=== PATIENT | female | born 1955 | race African-American/Black ===

== ENCOUNTER → 2016-07-09 17:32 | Outpatient (CLI) | payer MEDICARE | END | disposition home or self-care (01) | LOC: D.LABREF 17:32 | DX: I50.9 Heart failure, unspecified (principal) ==

== ENCOUNTER → 2016-07-11 09:59 | Outpatient (CLI) | payer MEDICARE | END | disposition home or self-care (01) | LOC: D.CT 09:59 | DX: R59.0 Localized enlarged lymph nodes (principal) ==

== ENCOUNTER → 2016-10-03 13:20 | Outpatient (CLI) | payer MEDICARE | END | disposition home or self-care (01) | LOC: D.MAMMO 09-18 16:15 | DX: Z12.31 Encounter for screening mammogram for malignant neoplasm of breast (principal) ==

== ENCOUNTER 2016-10-14 10:59 | Emergency (ER) | payer MEDICARE | END 2016-10-14 13:53 | disposition home or self-care (01) | LOC: D.ER 10:59 | DX: H66.92 Otitis media, unspecified, left ear (principal); G62.9 Polyneuropathy, unspecified; F32.9 Major depressive disorder, single episode, unspecified; E11.9 Type 2 diabetes mellitus without complications; Z79.4 Long term (current) use of insulin; I10 Essential (primary) hypertension; R51 Headache ==

== ENCOUNTER → 2017-01-15 13:33 | Outpatient (CLI) | payer MEDICARE | END | disposition home or self-care (01) | LOC: D.CT 01-10 09:30 | DX: R91.1 Solitary pulmonary nodule (principal) ==

== ENCOUNTER → 2017-01-31 09:20 | Outpatient (CLI) | payer MEDICARE | END | disposition home or self-care (01) | LOC: D.MRI 09:20 | DX: K76.9 Liver disease, unspecified (principal) ==

== ENCOUNTER 2017-03-29 06:53 | Emergency (ER) | payer MEDICARE | END 2017-03-29 07:33 | disposition home or self-care (01) | LOC: D.ER 06:53 | DX: M51.36 Other intervertebral disc degeneration, lumbar region (principal); E11.9 Type 2 diabetes mellitus without complications; Z79.4 Long term (current) use of insulin; I10 Essential (primary) hypertension ==

== ENCOUNTER 2017-07-01 22:29 | Emergency (ER) | payer MEDICARE ==
[2017-07-01 23:35] LABS: APPEARANCE CLEAR (CLEAR); BILIRUBIN NEGATIVE (NEGATIVE); COLOR YELLOW (YELLOW); GLUCOSE 100 mg/dL (NEGATIVE); KETONE NEGATIVE (NEGATIVE); NITRITE NEGATIVE (NEGATIVE); PROTEIN NEGATIVE (NEGATIVE); SPECIFIC GRAVITY 1.015 (1.005-1.020); UROBILINOGEN NORMAL (NORMAL)
[2017-07-01 23:36] LABS: BACTERIA MODERATE /hpf (NONE SEEN); EPITHELIAL CELLS 0-5 /hpf (0-5); RED CELLS - URINE 0-5 /hpf (0-5); WHITE CELLS - URINE 0-5 /hpf (0-5)
[2017-07-01 23:54] LABS: HEMATOCRIT 35.7 % (36.0-48.0); HEMOGLOBIN 11.7 g/dL (12-16); LYMPHOCYTES 16.8 % (15-50); MCH 27.1 pg (26.0-34.0); MCHC 32.8 g/dL (31.0-37.0); MCV 82.8 fL (80.0-100.0); NEUTROPHILS 70.8 % (40-80); RBC 4.31 10x6/uL (4.00-5.40); RDW 14.2 % (11.5-14.5); WBC 9.6 10x3/uL (4.8-10.8)
[2017-07-01 23:55] LABS: PLATELET COUNT 176 10x3/uL (130-400)
[2017-07-02 00:04] LABS: ALBUMIN 2.9 g/dL (3.4-5.0); ALKALINE PHOSPHATASE 106 U/L (46-116); ALT (SGPT) 25 U/L (10-68); BILIRUBIN - TOTAL 0.21 mg/dL (0.2-1.3); CALC OSMOLALITY 289 mosm/kg (275-300); CALCIUM 8.4 mg/dL (8.5-10.1); CARBON DIOXIDE 30.4 mmol/L (21.0-32.0); CHLORIDE - SERUM 101 mmol/L (98-107); CREATININE - SERUM 1.3 mg/dL (0.6-1.3); POTASSIUM - SERUM 3.8 mmol/L (3.5-5.1); PROTEIN - SERUM 7.2 g/dL (6.4-8.2); SODIUM 140 mmol/L (136-145); UREA NITROGEN 23 mg/dL (7-18); eGFR NON AFRICAN AMERICAN 44 mL/min (90-120)
[2017-07-02 00:05] LABS: GLUCOSE 216 mg/dL (74-106)
[2017-07-02 00:11] LABS: CKMB 1.1 U/L (0.0-3.6); CREATINE KINASE 107 UL (21-215); THYROID STIMULATING HORMONE 2.21 uIU/mL (0.36-3.74)
[2017-07-02 00:14] LABS: TROPONIN-I < 0.017 ng/mL (0.000-0.060)
== END 2017-07-02 01:26 | disposition home or self-care (01) ==
LOC: D.ER 22:29
PROVIDERS: Family Medicine
DX: E11.65 Type 2 diabetes mellitus with hyperglycemia (principal); R53.1 Weakness

== ENCOUNTER → 2017-07-24 13:00 | Outpatient (CLI) | payer MEDICARE | END | disposition home or self-care (01) | LOC: D.MRI 13:00 | DX: M54.5 Low back pain (principal) ==

== ENCOUNTER 2017-08-22 16:51 | Emergency (ER) | payer MEDICARE | END 2017-08-22 18:54 | disposition home or self-care (01) | LOC: D.ER 16:51 → D.M2 23:16 | DX: H60.91 Unspecified otitis externa, right ear (principal); E11.9 Type 2 diabetes mellitus without complications ==

== ENCOUNTER 2018-04-21 18:11 | Inpatient (IN) | payer MEDICARE ==
[~2018-04-21] VITALS: Ht 162.6 cm; Wt 105.5 kg
[2018-04-21] MEDS ORDERED: TOUJEO SOL300 UNIT/1 SC (18:17)
[2018-04-21] MEDS ORDERED: HUMALOG 30100 UNITS/ SC (18:18)
[2018-04-21] MEDS ORDERED: NEURONTIN600 MG PO (18:19)
[2018-04-21] MEDS ORDERED: ZANAFLEX4 MG PO (18:19)
[2018-04-21] MEDS ORDERED: COZAAR25 MG PO (18:20)
[2018-04-21] MEDS ORDERED: LEXAPRO10 MG PO (18:20)
[2018-04-21] MEDS ORDERED: ZYLOPRIM100 MG PO (18:20)
[2018-04-21] MEDS ORDERED: LOPRESSOR25 MG PO (18:20)
[2018-04-21] MEDS ORDERED: IBUPROFEN800 MG PO (18:21)
[2018-04-21] MEDS ORDERED: K-TAB10 MEQ PO (18:21)
[2018-04-21] MEDS ORDERED: NITROSTAT0.4 MG SL (18:21)
[2018-04-21] MEDS ORDERED: BUMEX2 MG PO (18:21)
[2018-04-21] MEDS ORDERED: RESTORIL15 MG PO (18:22)
[2018-04-21] MEDS ORDERED: PHENERGAN25 M1 PO (18:22)
[2018-04-21] MEDS ORDERED: HYDROCODON-ACET15 ML PO (18:23)
--- NOTE | 2018-04-21 18:59 | NUR ---
HAND-OFF REPORT GIVEN TO ZANDRA URIARTE RN AT THIS TIME.
[2018-04-21 19:12] LABS: BASOPHILS 0.3 % (0-2); EOSINOPHILS 0.9 % (0-7); HEMATOCRIT 40.4 % (36.0-48.0); HEMOGLOBIN 13.3 g/dL (12-16); IMMATURE GRANULOCYTES 0.3 % (0-5); LYMPHOCYTES 12.6 % (15-50); MCH 27.5 pg (26.0-34.0); MCHC 32.9 g/dL (31.0-37.0); MCV 83.5 fL (80.0-100.0); MONOCYTES 6.6 % (2-11); NEUTROPHILS 79.3 % (40-80); PLATELET COUNT 204 10x3/uL (130-400); RBC 4.84 10x6/uL (4.00-5.40); WBC 13.1 10x3/uL (4.8-10.8)
[2018-04-21 19:30] LABS: ALBUMIN 2.8 g/dL (3.4-5.0); ALKALINE PHOSPHATASE 113 U/L (46-116); ALT (SGPT) 54 U/L (10-68); BILIRUBIN - TOTAL 0.66 mg/dL (0.2-1.3); CALC OSMOLALITY 295 mosm/kg (275-300); CALCIUM 8.5 mg/dL (8.5-10.1); CARBON DIOXIDE 30.5 mmol/L (21.0-32.0); CHLORIDE - SERUM 99 mmol/L (98-107); POTASSIUM - SERUM 3.3 mmol/L (3.5-5.1); PROTEIN - SERUM 7.2 g/dL (6.4-8.2); SODIUM 139 mmol/L (136-145); UREA NITROGEN 20 mg/dL (7-18); eGFR NON AFRICAN AMERICAN 59 mL/min (90-120)
[2018-04-21 19:31] LABS: GLUCOSE 376 mg/dL (74-106); KETONE - SERUM NEGATIVE (NEGATIVE)
[2018-04-21 20:26] LABS: APTT 28.8 SECONDS (22.8-39.4); INR 1.08 (0.85-1.17); PROTIME 13.5 SECONDS (11.6-15.0)
--- NOTE | 2018-04-21 21:53 | NUR ---
EKG TIME ERROR, TIME WAS FOR A DIFFERENT PATIENT
[2018-04-21 22:09] LABS: APPEARANCE HAZY (CLEAR); COLOR YELLOW (YELLOW)
[2018-04-21 22:10] LABS: BILIRUBIN NEGATIVE (NEGATIVE); GLUCOSE 500 mg/dL (NEGATIVE); KETONE NEGATIVE (NEGATIVE); NITRITE NEGATIVE (NEGATIVE); PROTEIN TRACE mg/dL (NEGATIVE); SPECIFIC GRAVITY 1.015 (1.005-1.020); UROBILINOGEN NORMAL (NORMAL)
[2018-04-21 22:11] LABS: BACTERIA MANY /hpf (NONE SEEN); EPITHELIAL CELLS 0-5 /hpf (0-5); RED CELLS - URINE OCC /hpf (0-5)
--- NOTE | 2018-04-22 00:23 | NUR ---
REPORT GIVEN TO ISMA FUNEZ RN
--- NOTE | 2018-04-22 00:45 | NUR ---
ADMITTED TO ROOM ALERT AND ORIENTIATED MARIAA WRAP AND SPLINT TO LEFT LOWER LEG AND FOOT FOR FX ANKLE ELEVATED UP ON 2 PILLOWS REPORTS PAIN AT LEVEL 6 RECENTLY RECIEVED DILAUDID FOR PAIN, ORIENTIATED TO ROOM CALL LIGHT IN REACH
[2018-04-22 01:03] VITALS: BP 117/47
[2018-04-22 04:00] VITALS: BP 112/61
[2018-04-22 07:12] VITALS: Ht 162.6 cm; Wt 105.5 kg
[2018-04-22 07:42] LABS: BASOPHILS 0.3 % (0-2); EOSINOPHILS 0.7 % (0-7); HEMATOCRIT 42.5 % (36.0-48.0); HEMOGLOBIN 13.5 g/dL (12-16); IMMATURE GRANULOCYTES 0.3 % (0-5); LYMPHOCYTES 11.7 % (15-50); MCH 27.3 pg (26.0-34.0); MCHC 31.8 g/dL (31.0-37.0); RBC 4.94 10x6/uL (4.00-5.40); RDW 14.3 % (11.5-14.5); WBC 16.3 10x3/uL (4.8-10.8)
[2018-04-22 07:46] LABS: PLATELET COUNT 144 10x3/uL (130-400)
[2018-04-22 08:30] VITALS: BP 112/57
[2018-04-22 10:01] LABS: ALBUMIN 2.9 g/dL (3.4-5.0); ANION GAP 10.1 mmol/L (8-16); BILIRUBIN - TOTAL 0.67 mg/dL (0.2-1.3); CALCIUM 8.5 mg/dL (8.5-10.1); CARBON DIOXIDE 29.4 mmol/L (21.0-32.0); POTASSIUM - SERUM 3.5 mmol/L (3.5-5.1); PROTEIN - SERUM 7.1 g/dL (6.4-8.2)
[2018-04-22 10:02] LABS: CREATININE - SERUM 1.3 mg/dL (0.6-1.3)
--- NOTE | 2018-04-22 10:43 | NUR ---
Rehab Prescreening Consult recieved and the chart has been reviewed. She is [facility] managed Medicare and will require a preauth for the acute rehab. She is scheduled for surgery today. After surgery she will need a PT and an OT eval completed before [facility] will review her information for rehab criteria. Rehab will follow her progress. Roula Gibbons RN Clinical Liaison, Rehab
--- NOTE | 2018-04-22 11:35 | NUR ---
LATE ENTRY 0800. PT RESTING IN BED. FAMILY AT BEDSIDE. NPO. WAITING ON SX. DENIES ANY NEEDS. FAMILY AT BEDSIDE.NO S/S OF ACUTE DISTRESS. CL IN PLACE.
[2018-04-22 13:52] VITALS: BP 143/72
--- NOTE | 2018-04-22 17:00 | OP ---
PATIENT NAME: ISABELA ADAMS MEDICAL RECORD: [id number] :55 LOCATION:D.MS Nix.2211 ADMISSION DATE:04/21/18 SURGEON: BONG BAPTISTE DO DATE OF OPERATION: 04/22/2018 PROCEDURE PERFORMED: Left ankle open reduction and internal fixation. PREOPERATIVE DIAGNOSES: Closed left trimalleolar fracture with a syndesmotic injury and proximal fibula fracture. POSTOPERATIVE DIAGNOSES: Closed left trimalleolar fracture with a syndesmotic injury and proximal fibula fracture. INDICATIONS: Ms. Adams is a 62-year-old female who had a syncopal episode she thinks last night and she twisted her ankle, could not bear weight on her left ankle. She was brought to the ER. X-rays were taken. She was seen to have a trimalleolar fracture with a proximal fibula fracture. CT was done to get better imaging, it indeed showed the described above. A proximal fibula fracture was likely due to the twist indicating a syndesmotic injury. She did have a posterior mal fracture; however, was not greater than 25% of the joint. The patient was informed it was also dislocated on the x-ray and CT. This was reduced in the ER and splinted, and the patient was admitted to medicine and set up for surgery today. She was informed of the risks and benefits of the procedure including infection, bleeding, damage to nerve or vessels, potential blood clots and longer healing due to her diabetes and other medical problems. She was okay with that and signed the consent for the procedure. SURGEON: Bong Baptiste DO DESCRIPTION OF PROCEDURE: The patient received a block by anesthesia in the preoperative area and taken to the operative suite, given 2 grams Ancef. She was laid in supine position, intubated, LMA was placed and she was sedated as well. The left lower extremity was prepped and draped in sterile fashion with tourniquet above the knee under the drapes. The timeout was performed, everyone was agreeance with the correct side, site, patient and procedure. The left lower extremity was then exsanguinated with an Esmarch and the tourniquet was inflated to 350 mmHg, was up for 64 minutes. The incision then began over the fibula on the lateral side of the ankle. Careful dissection was made down to the fibula itself. Once the fibula was reduced adequately with the plate, distal locking screws were placed in the plate and then proximal screws in the shaft, getting a nice reduction of the fibula. More screws were put more proximally in the shaft of the fibula and once we had good fixation there, I went and addressed the medial side, two K-wires were used to reduce the medial malleolus percutaneously. Once I had good reduction and they were in good position, two cannulated screws were used over the pins. Nicks were made on the skin over the pins and a drill was used to go through the first cortex and then both screws were placed sequentially, 44 in length, and the medial malleolus, a nice reduction confirmed on x-ray. I then addressed the syndesmotic injury. A large clamp was used, placed on the fibular plate and a shreya was made over the medial malleolus and the large reduction clamp was used to reduce the ankle, the ankle dorsiflexed. The TightRopes were then used, one distally and one proximally, put through the plate and through the fibula and the tibia. The more proximal one had missed the tibia initially when the button was deployed. This was removed and the new one was put in, redirected the placement of the TightRope. These were tightened down. All the ankle was clamped and the clamp OPERATIVE REPORT [id number] ISABELA ADAMS was removed, confirmed to have good reduction of the ankle and the TightRope was cut. The cinching sutures were cut off the TightRope. Then, the wound was thoroughly irrigated and tourniquet was let down at 64 minutes. Wound was thoroughly irrigated. The medial side and 3 small shreya incisions were closed with 4-0 Monocryl in an inverted interrupted fashion. The lateral incision was closed with 2-0 Vicryl in an inverted interrupted fashion and then a ZipLine placed on it. Adaptic, 4 x 4's, ABD was then placed on the heel and over the wounds and then a Webril cast padding was used to wrap the ankle from the toes to just below the knee. Then, a 4 x 30 splint was placed and secured into place with 6-inch and 4-inch Zana wrap and formed, held in dorsiflexion until the splint hardened. The patient was then awakened and taken to recovery in stable condition. Blood loss was approximately 100 mL. COMPLICATIONS: None. I was assisted by Pito Diaz. TRANSINT:[id number] Voice Confirmation ID: [id number] DOCUMENT ID: [id number] BONG BAPTISTE DO at 1700 CC: [id number] DICTATION DATE: 04/22/18 1322 MANAGER GROUP: 04/22/18 1531 ADM IN [place] [id number] [place] [id number]
[2018-04-22 17:14] VITALS: BP 121/58
[2018-04-22 21:44] VITALS: BP 116/54
[2018-04-23 01:37] VITALS: BP 128/62
[2018-04-23 05:06] LABS: BASOPHILS 0.3 % (0-2); EOSINOPHILS 0.6 % (0-7); HEMATOCRIT 34.7 % (36.0-48.0); HEMOGLOBIN 11.2 g/dL (12-16); IMMATURE GRANULOCYTES 0.2 % (0-5); LYMPHOCYTES 11.6 % (15-50); MCH 27.1 pg (26.0-34.0); MCHC 32.3 g/dL (31.0-37.0); MEAN PLATELET VOLUME 12.6 fL (7.4-10.4); MONOCYTES 10.1 % (2-11); NEUTROPHILS 77.2 % (40-80); RBC 4.14 10x6/uL (4.00-5.40); RDW 14.1 % (11.5-14.5); WBC 15.1 10x3/uL (4.8-10.8)
[2018-04-23 05:22] LABS: MCV 83.8 fL (80.0-100.0); PLATELET COUNT 187 10x3/uL (130-400)
[2018-04-23 05:33] LABS: ALBUMIN 2.5 g/dL (3.4-5.0); ANION GAP 12.7 mmol/L (8-16); BILIRUBIN - TOTAL 0.36 mg/dL (0.2-1.3); CALCIUM 8.2 mg/dL (8.5-10.1); CARBON DIOXIDE 26.3 mmol/L (21.0-32.0); MAGNESIUM - SERUM 1.6 mg/dL (1.8-2.4); PHOSPHOROUS 2.6 mg/dL (2.5-4.9); PROTEIN - SERUM 6.6 g/dL (6.4-8.2)
--- NOTE | 2018-04-23 08:04 | NUR ---
PT RESTING IN BED. ASSISTED ONTO BEDPAN. DENIES PAIN. NO S/S OF ACUTE DISTRESS. SCD ON R LEG NOTED. CL IN PLACE.
[2018-04-23 08:30] VITALS: BP 110/66; BP 152/59
--- NOTE | 2018-04-23 09:39 | NUR ---
HELD BP DT 124/62.
[2018-04-23 12:30] VITALS: BP 163/89
--- NOTE | 2018-04-23 13:33 | NUR ---
LATE ENTRY FROM 1000. GAVE SUPPLIES TO NURSING STUDFENT FOR I O CATH. ATTEMPTED AND NO URINE PRESENT. WILL TRY AGAIN LATER.
[2018-04-23 16:30] VITALS: BP 124/61
--- NOTE | 2018-04-23 19:39 | NUR ---
PT RESTING IN BED. CO OF PAIN NOT BEING RELIEVED. SPOKE WITH DR BAPTISTE ABOUT THE PT PAIN. ROTATING TORDOL, OXYCODONE, VISTARIL, TORDOL THIS SHIFT. NO S/S OF ACUTE DISTRESS. CL IN PLACE.
--- NOTE | 2018-04-23 20:30 | NUR ---
AWAKE WATCHING TV QUIETLY. NO DISTRESS NOTED RESP UNLABORED. SL TO RFA INTACT WITHOUT REDNESS OR EDEMA NOTED. SPLINT WITH MARIAA WRAP DRESSING INTACT WITHOUT DRAINAGE NOTED.NO COMPLAITNS VOICED. CL IN REACH
--- NOTE | 2018-04-23 21:00 | NUR ---
OT NOTE: PT COMPLETED BED MOB WITH MIN A. PT COMPLETED SITTING EOB WITH CGA. PT COMPLETED GROOMING TASK WITH SET UP. THANK YOU, KEVIN ROSADO
[2018-04-23 21:48] VITALS: BP 138/65
--- NOTE | 2018-04-24 01:54 | NUR ---
ASSESSED, PT IS ASLEEP WITH EASY RESPIRATIONS AND NO DISTRESS NOTED.
[2018-04-24 04:34] LABS: BASOPHILS 0.3 % (0-2); EOSINOPHILS 0.9 % (0-7); HEMATOCRIT 34.2 % (36.0-48.0); HEMOGLOBIN 11.1 g/dL (12-16); IMMATURE GRANULOCYTES 0.3 % (0-5); MCH 27.4 pg (26.0-34.0); MCHC 32.5 g/dL (31.0-37.0); MCV 84.4 fL (80.0-100.0); MEAN PLATELET VOLUME 12.3 fL (7.4-10.4); MONOCYTES 10.1 % (2-11); NEUTROPHILS 73.4 % (40-80); PLATELET COUNT 200 10x3/uL (130-400); RBC 4.05 10x6/uL (4.00-5.40); RDW 14.4 % (11.5-14.5); WBC 13.6 10x3/uL (4.8-10.8)
[2018-04-24 04:52] LABS: ALBUMIN 2.6 g/dL (3.4-5.0); BILIRUBIN - TOTAL 0.37 mg/dL (0.2-1.3); CALCIUM 8.4 mg/dL (8.5-10.1); CARBON DIOXIDE 25.8 mmol/L (21.0-32.0); CREATININE - SERUM 0.9 mg/dL (0.6-1.3); MAGNESIUM - SERUM 1.5 mg/dL (1.8-2.4); PHOSPHOROUS 2.4 mg/dL (2.5-4.9); PROTEIN - SERUM 7.2 g/dL (6.4-8.2)
[2018-04-24 04:53] LABS: ANION GAP 14.3 mmol/L (8-16); POTASSIUM - SERUM 4.1 mmol/L (3.5-5.1)
[2018-04-24 05:35] VITALS: BP 147/60
[2018-04-24 09:04] VITALS: BP 126/77
--- NOTE | 2018-04-24 10:04 | MORECARE ---
CASE MANAGEMENT DISCHARGE SUMMARY PATIENT: ISABELA ADAMS UNIT: [id number] ADM DATE: 04/21/18 AGE: 62 : 55 SEX: F ROOM/BED: D.2211 AUTHOR: SUE CANALES PHYSICIAN: REFERRING PHYSICIAN: NICOLETTE ANDERSEN MD DATE OF SERVICE: 04/24/18 Discharge Plan Patient Name: ISABELA ADAMS [facility] : 1955 Planned Disposition: Inpatient Rehab Anticipated Discharge Date: Discharge Date: Expected LOS: Initial Reviewer: [email or web address] Initial Review Date: 04/21/2018 Generated: 04/24/18 11:04 am DCPIA - Discharge Planning Initial Assessment Updated by [id number]: Kera Church on 04/24/18 10:03 am * Is the patient Alert and Oriented? Yes * How many steps to enter\exit or inside your home? * PCP natali * Pharmacy [facility] * Preadmission Environment Home Alone * ADLs Independent * Equipment Rolling Walker * List name and contact numbers for known caregivers / representatives who currently or will assist patient after discharge: Rosario (daughter) [phone] * Verbal permission to speak to the caregivers and representatives has been obtained from the patient. N/A * Community resources currently utilized None * Additional services required to return to the preadmission environment? Yes * Can the patient safely return to the preadmission environment? No * Has this patient been hospitalized within the prior 30 days at any hospital? No Patient Name: ISABELA ADAMS Page [phone] at 1004 All edits/amendments must be made on the electronic document DICTATION DATE: 04/24/18 1004 PACU NURSE: VIKAS 04/24/18 1004 RPT#: [id number] DC DATE: STATUS: ADM IN [facility] [address] [place] [address] END OF REPORT
--- NOTE | 2018-04-24 10:11 | MORECARE ---
CASE MANAGEMENT DISCHARGE SUMMARY PATIENT: ISABELA ADAMS UNIT: [id number] ADM DATE: 04/21/18 AGE: 62 : 55 SEX: F ROOM/BED: D.2211 AUTHOR: PARKERDOC PHYSICIAN: REFERRING PHYSICIAN: NICOLETTE ANDERSEN MD DATE OF SERVICE: 04/24/18 Discharge Plan Patient Name: ISABELA ADAMS Facility: [facility]:[place] : 1955 Planned Disposition: Inpatient Rehab Anticipated Discharge Date: Discharge Date: Expected LOS: Initial Reviewer: [email or web address] Initial Review Date: 04/21/2018 Generated: 04/24/18 11:11 am Comments DCP- Discharge Planning Updated by [id number]: Kera Church on 04/24/18 9:[address] Patient Name: ISABELA ADAMS Admission Status: ER Accout number: [id number] Admission Date: 04-21-2018 : 1955 Admission Diagnosis: Attending: NICOLETTE ANDERSEN Current LOS: 3 Anticipated DC Date: Planned Disposition: Inpatient Rehab Primary Insurance: [facility] MEDICARE SOLUTIONS Discharge Planning Comments: CM met with patient to assess discharge planning needs. Patient lives independently at home but when she is discharged she would like to go to inpatient rehab at [facility]. ANDRAE signed. She stated that she has called and spoke with her insurance and they have approved her. I called IPT rehab and they are just now sending out clinicals so we are waiting on auth. She has a walker at home There are no stairs in her home. Her daughter will be the one to drive her home when she is ready. CM will continue to follow and assist with DC planning as needed. IMM was signed and explained. I also gave her a list of Skilled Facilities for her to look at if she is unable to go to inpatient rehab. CM will continue to follow as neeeded Burlap Bag Sewer: Kera Church DCPIA - Discharge Planning Initial Assessment Updated by [email or web address]: Kera Church on 04/24/18 10:03 am * Is the patient Alert and Oriented? Yes * How many steps to enter\exit or inside your home? * PCP natali * Pharmacy [facility] [address] * Preadmission Environment Home Alone * ADLs Independent * Equipment Rolling Walker * List name and contact numbers for known caregivers / representatives who currently or will assist patient after discharge: Rosario (daughter) [phone] * Verbal permission to speak to the caregivers and representatives has been obtained from the patient. N/A * Community resources currently utilized None * Additional services required to return to the preadmission environment? Yes * Can the patient safely return to the preadmission environment? No * Has this patient been hospitalized within the prior 30 days at any hospital? No Coverage Notice Reviewer: [id number] Cain Church Notice Issued Date-Time: 04/24/2018 10:00 Notice Type: IM Discharge Notice Notice Delivered To: Patient Relationship to Patient: Sports Statistician Name: Delivery Method: HAND - Hand Delivered Jada Days: Prior Verbal Notification: Recipient Understood Notice: Yes Recipient Signature: Yes Med Rec Note Co-signed by Attending: Coverage Notice Comment: Last DP export: 04/24/18 9:04 am Patient Name: ISABELA ADAMS Page [id number] at 1011 All edits/amendments must be made on the electronic document DICTATION DATE: 04/24/18 1011 SNOWBOARD INSTRUCTOR: VIKAS 04/24/18 1011 RPT#: [id number] DC DATE: STATUS: ADM IN [facility] [address] [place] [address] END OF REPORT
--- NOTE | 2018-04-24 10:20 | MORECARE ---
CASE MANAGEMENT DISCHARGE SUMMARY PATIENT: ISABELA ADAMS UNIT: [id number] ADM DATE: 04/21/18 AGE: 62 : 55 SEX: F ROOM/BED: D.2211 AUTHOR: PARKERDOC PHYSICIAN: REFERRING PHYSICIAN: NICOLETTE ANDERSEN MD DATE OF SERVICE: 04/24/18 Discharge Plan Patient Name: ISABELA ADAMS Facility: [facility]:[place] : 1955 Planned Disposition: Inpatient Rehab Anticipated Discharge Date: Discharge Date: Expected LOS: Initial Reviewer: [email or web address] Initial Review Date: 04/21/2018 Generated: 04/24/18 11:20 am Comments DCP- Discharge Planning Updated by [email or web address]: Kera Church on 04/24/18 9:[address] Patient Name: ISABELA ADAMS Admission Status: ER Accout number: [id number] Admission Date: 04-21-2018 : 1955 Admission Diagnosis: Attending: NICOLETTE ANDERSEN Current LOS: 3 Anticipated DC Date: Planned Disposition: Inpatient Rehab Primary Insurance: [facility] MEDICARE SOLUTIONS Discharge Planning Comments: CM met with patient to assess discharge planning needs. Patient lives independently at home but when she is discharged she would like to go to inpatient rehab at [facility]. ANDRAE signed. She stated that she has called and spoke with her insurance and they have approved her. I called IPT rehab and they are just now sending out clinicals so we are waiting on auth. She has a walker at home There are no stairs in her home. Her daughter will be the one to drive her home when she is ready. CM will continue to follow and assist with DC planning as needed. IMM was signed and explained. I also gave her a list of Skilled Facilities for her to look at if she is unable to go to inpatient rehab. CM will continue to follow as neeeded Hardware Developer: Kera Church DCPIA - Discharge Planning Initial Assessment Updated by [id number]: Kera Church on 04/24/18 10:03 am * Is the patient Alert and Oriented? Yes * How many steps to enter\exit or inside your home? * PCP natali * Pharmacy [facility] [address] * Preadmission Environment Home Alone * ADLs Independent * Equipment Rolling Walker * List name and contact numbers for known caregivers / representatives who currently or will assist patient after discharge: Rosario (daughter) [phone] * Verbal permission to speak to the caregivers and representatives has been obtained from the patient. N/A * Community resources currently utilized None * Additional services required to return to the preadmission environment? Yes * Can the patient safely return to the preadmission environment? No * Has this patient been hospitalized within the prior 30 days at any hospital? No Coverage Notice Reviewer: [id number] Cain Church Notice Issued Date-Time: 04/24/2018 10:00 Notice Type: IM Discharge Notice Notice Delivered To: Patient Relationship to Patient: Informatics Developer Name: Delivery Method: HAND - Hand Delivered Jada Days: Prior Verbal Notification: Recipient Understood Notice: Yes Recipient Signature: Yes Med Rec Note Co-signed by Attending: Coverage Notice Comment: Last DP export: 04/24/18 9:11 am Patient Name: ISABELA ADAMS Page [id number] at 1020 All edits/amendments must be made on the electronic document DICTATION DATE: 04/24/18 1019 ASSISTANT FOREMAN: VIKAS 04/24/18 1019 RPT#: [id number] DC DATE: STATUS: ADM IN [facility] [address] [place] [address] END OF REPORT
--- NOTE | 2018-04-24 12:00 | NUR ---
C/O DISCOMFORT IN LEFT ANKLE, APPLIED ICE, RELIEVED DISCOMFORT, DENIES ANY OTHER NEEDS, BED LOWERED AND LOCKED, CALL LIGHT WITHIN REACH. CPOC
[2018-04-24 12:33] VITALS: BP 120/72
[2018-04-24 16:37] VITALS: BP 125/55
--- NOTE | 2018-04-24 19:50 | NUR ---
RECEIVED REPORT, ASSUMED CARE, A&O, IV TO RFA REMOVED TIP INTACT, 22G ONE STICK TO LFA, ICE APPLIED TO LEFT ANKLE AND ELEVATED ON PILLOWS, BED LOWEST POSITION, CALL LIGHT IN REACH, WILL CONTINUE POC
[2018-04-24 20:00] VITALS: BP 111/62
[2018-04-25] VITALS: BP 105/53
--- NOTE | 2018-04-25 02:08 | NUR ---
ASSESSED, PT IS AWAKE AND HAS EASY RESPIRATIONS WITH NO DISTRESS NOTED. ASSISTED WITH ADJUSTING THE BED.
[2018-04-25 03:00] VITALS: BP 122/63
[2018-04-25 06:52] LABS: BASOPHILS 0.2 % (0-2); EOSINOPHILS 1.5 % (0-7); HEMATOCRIT 33.8 % (36.0-48.0); HEMOGLOBIN 10.9 g/dL (12-16); IMMATURE GRANULOCYTES 0.3 % (0-5); LYMPHOCYTES 12.3 % (15-50); MCH 27.6 pg (26.0-34.0); MCHC 32.2 g/dL (31.0-37.0); MCV 85.6 fL (80.0-100.0); MEAN PLATELET VOLUME 12.2 fL (7.4-10.4); MONOCYTES 8.7 % (2-11); PLATELET COUNT 188 10x3/uL (130-400); RBC 3.95 10x6/uL (4.00-5.40); RDW 14.5 % (11.5-14.5); WBC 14.9 10x3/uL (4.8-10.8)
[2018-04-25 07:07] LABS: ALBUMIN 2.5 g/dL (3.4-5.0); ANION GAP 14.7 mmol/L (8-16); BILIRUBIN - TOTAL 0.44 mg/dL (0.2-1.3); CALCIUM 8.1 mg/dL (8.5-10.1); CARBON DIOXIDE 26.7 mmol/L (21.0-32.0); MAGNESIUM - SERUM 1.4 mg/dL (1.8-2.4); PHOSPHOROUS 2.9 mg/dL (2.5-4.9); POTASSIUM - SERUM 4.4 mmol/L (3.5-5.1); PROTEIN - SERUM 7.1 g/dL (6.4-8.2)
[2018-04-25 07:12] LABS: CREATININE - SERUM 1.5 mg/dL (0.6-1.3)
--- NOTE | 2018-04-25 07:47 | NUR ---
AWAKE AND ALERT, EVEN UNLABORED BREATHING, LEFT LEG ELEVATED WITH MARIAA WRAP PRESENT, DENIES ANY CURRENT NEEDS OR DISCOMFORTS, BED LOWERED AND LOCKED, CALL LIGHT WITHIN REACH. CPOC
[2018-04-25 11:03] VITALS: BP 99/57
[2018-04-25 18:31] VITALS: BP 99/52
--- NOTE | 2018-04-25 19:30 | NUR ---
RECEIVED REPORT, ASSUMED CARE, A&O, DENIES NEEDS, BED LOWEST POSITION, CALL LIGHT IN REACH, NO S/S OF DISTRESS NOTED, WILL CONTINUE POC
[2018-04-25 20:00] VITALS: BP 124/66
[2018-04-26] VITALS: BP 120/58
[2018-04-26 03:00] VITALS: BP 105/50
--- NOTE | 2018-04-26 03:58 | NUR ---
PT PULLED IV TO LFA OUT, TIP INTACT, 22G TO RFA PLACED ONE STICK
--- NOTE | 2018-04-26 05:24 | NUR ---
PT RESTING QUIETLY, EYES CLOSED. RESP EVEN, UNLABORED. NO DISTRESS NOTED. AGREE WITH SENIOR FOREMAN ASSESSMENT. CONTINUE PLAN OF CARE.
[2018-04-26 06:41] LABS: BASOPHILS 0.2 % (0-2); EOSINOPHILS 1.8 % (0-7); HEMATOCRIT 33.5 % (36.0-48.0); HEMOGLOBIN 10.8 g/dL (12-16); IMMATURE GRANULOCYTES 0.3 % (0-5); MCH 27.5 pg (26.0-34.0); MCHC 32.2 g/dL (31.0-37.0); MCV 85.2 fL (80.0-100.0); MEAN PLATELET VOLUME 12.5 fL (7.4-10.4); MONOCYTES 9.6 % (2-11); NEUTROPHILS 75.1 % (40-80); RBC 3.93 10x6/uL (4.00-5.40); RDW 14.4 % (11.5-14.5); WBC 15.3 10x3/uL (4.8-10.8)
[2018-04-26 06:53] LABS: ANION GAP 11.2 mmol/L (8-16); CALCIUM 8.4 mg/dL (8.5-10.1); CARBON DIOXIDE 29.9 mmol/L (21.0-32.0); POTASSIUM - SERUM 4.1 mmol/L (3.5-5.1)
[2018-04-26 06:55] LABS: CREATININE - SERUM 1.1 mg/dL (0.6-1.3); MAGNESIUM - SERUM 1.8 mg/dL (1.8-2.4)
[2018-04-26 07:03] LABS: PLATELET COUNT 238 10x3/uL (130-400)
[2018-04-26 09:10] VITALS: BP 108/60
[2018-04-26 17:32] VITALS: BP 111/59
--- NOTE | 2018-04-26 19:45 | NUR ---
RECEIVED REPORT, ASSUMED CARE, A&O, COMPLAINS OF SEVERE PAIN OF HER LEFT LOWER FOOT FEELING LIKE IT DID WHEN SHE BROKE IT, RESTARTED IV DILAUDID AND CALLED DR BAPTISTE, FOOT ELEVATED ICE APPLIED, BED LOWEST POSITION, CALL LIGHT IN REACH, WILL CONITNUE POC
[2018-04-26 20:00] VITALS: BP 124/51
--- NOTE | 2018-04-26 23:00 | NUR ---
PT STILL UNABLE TO URINATE, STRAIGHT CATHED ONLY 300CC OUT, URINE SENT TO LAB
[2018-04-26 23:37] LABS: APPEARANCE CLEAR (CLEAR); BILIRUBIN NEGATIVE (NEGATIVE); COLOR YELLOW (YELLOW); GLUCOSE NEGATIVE (NEGATIVE); KETONE NEGATIVE (NEGATIVE); NITRITE NEGATIVE (NEGATIVE); PROTEIN NEGATIVE (NEGATIVE); SPECIFIC GRAVITY 1.015 (1.005-1.020); UROBILINOGEN NORMAL (NORMAL)
[2018-04-27] VITALS: BP 130/63
--- NOTE | 2018-04-27 02:36 | NUR ---
PT RESTING QUIETLY, EYES CLOSED. RESP EVEN, UNLABORED. NO DISTRESS NOTED. AGREEN WITH STREET DEPARTMENT DISPATCHER'S ASSESSMENT, CONTINUE PLAN OF CARE.
[2018-04-27 03:00] VITALS: BP 128/60
[2018-04-27 05:13] LABS: BASOPHILS 0.2 % (0-2); EOSINOPHILS 1.6 % (0-7); HEMATOCRIT 31.4 % (36.0-48.0); HEMOGLOBIN 10.2 g/dL (12-16); IMMATURE GRANULOCYTES 0.5 % (0-5); LYMPHOCYTES 13.1 % (15-50); MCH 27.5 pg (26.0-34.0); MCHC 32.5 g/dL (31.0-37.0); MCV 84.6 fL (80.0-100.0); MEAN PLATELET VOLUME 12.3 fL (7.4-10.4); MONOCYTES 12.5 % (2-11); NEUTROPHILS 72.1 % (40-80); PLATELET COUNT 231 10x3/uL (130-400); RBC 3.71 10x6/uL (4.00-5.40); RDW 14.2 % (11.5-14.5)
[2018-04-27 05:47] LABS: ANION GAP 13.6 mmol/L (8-16); CALCIUM 8.2 mg/dL (8.5-10.1); CARBON DIOXIDE 28.2 mmol/L (21.0-32.0); CREATININE - SERUM 1.1 mg/dL (0.6-1.3); POTASSIUM - SERUM 3.8 mmol/L (3.5-5.1)
[2018-04-27 08:52] VITALS: BP 102/72
--- NOTE | 2018-04-27 10:22 | MORECARE ---
CASE MANAGEMENT DISCHARGE SUMMARY PATIENT: ISABELA ADAMS UNIT: [id number] ADM DATE: 04/21/18 AGE: 62 : 55 SEX: F ROOM/BED: D.2211 AUTHOR: SUE CANALES PHYSICIAN: REFERRING PHYSICIAN: NICOLETTE ANDERSEN MD DATE OF SERVICE: 04/27/18 Discharge Plan Patient Name: ISABELA ADAMS Facility: [facility]:[place] : 1955 Planned Disposition: Inpatient Rehab Anticipated Discharge Date: Discharge Date: Expected LOS: Initial Reviewer: [email or web address] Initial Review Date: 04/21/2018 Generated: 04/27/18 11:22 am Comments DCP- Discharge Planning Updated by [id number]: Kera Church on 04/27/18 9:[address] SPOKE WITH CONRADO AT INPATIENT REHAB, AWAITING AUTH DCP- Discharge Planning Updated by [email or web address]: Kera Church on 04/24/18 9:[address] Patient Name: ISABELA ADAMS Admission Status: ER Accout number: [id number] Admission Date: 04-21-2018 : 1955 Admission Diagnosis: Attending: NICOLETTE ANDERSEN Current LOS: 3 Anticipated DC Date: Planned Disposition: Inpatient Rehab Primary Insurance: [facility] MEDICARE SOLUTIONS Discharge Planning Comments: CM met with patient to assess discharge planning needs. Patient lives independently at home but when she is discharged she would like to go to inpatient rehab at [facility]. ANDRAE signed. She stated that she has called and spoke with her insurance and they have approved her. I called IPT rehab and they are just now sending out clinicals so we are waiting on auth. She has a walker at home There are no stairs in her home. Her daughter will be the one to drive her home when she is ready. CM will continue to follow and assist with DC planning as needed. IMM was signed and explained. I also gave her a list of Skilled Facilities for her to look at if she is unable to go to inpatient rehab. CM will continue to follow as neeeded Ground Mixer: Kera Church DCPIA - Discharge Planning Initial Assessment Updated by [email or web address]: Kera Church on 04/24/18 10:03 am * Is the patient Alert and Oriented? Yes * How many steps to enter\exit or inside your home? * PCP natali * Pharmacy [facility] [address] * Preadmission Environment Home Alone * ADLs Independent * Equipment Rolling Walker * List name and contact numbers for known caregivers / representatives who currently or will assist patient after discharge: Rosario (daughter) [phone] * Verbal permission to speak to the caregivers and representatives has been obtained from the patient. N/A * Community resources currently utilized None * Additional services required to return to the preadmission environment? Yes * Can the patient safely return to the preadmission environment? No * Has this patient been hospitalized within the prior 30 days at any hospital? No Coverage Notice Reviewer: [email or web address] Cain Church Notice Issued Date-Time: 04/24/2018 10:00 Notice Type: IM Discharge Notice Notice Delivered To: Patient Relationship to Patient: Coal Mill Operator Name: Delivery Method: HAND - Hand Delivered Jada Days: Prior Verbal Notification: Recipient Understood Notice: Yes Recipient Signature: Yes Med Rec Note Co-signed by Attending: Coverage Notice Comment: Last DP export: 04/24/18 9:20 am Patient Name: ISABELA ADAMS Page [id number] at 1022 All edits/amendments must be made on the electronic document DICTATION DATE: 04/27/18 1022 DIRECTOR INDUSTRIAL MUSEUM: VIKAS 04/27/18 1022 RPT#: [id number] DC DATE: STATUS: ADM IN [facility] [address] [place] [address] END OF REPORT
[2018-04-27 13:40] VITALS: BP 130/69
[2018-04-27 16:00] VITALS: BP 114/62
[2018-04-27 21:08] VITALS: BP 113/65
[2018-04-28 04:54] VITALS: BP 111/57
[2018-04-28 05:15] LABS: BASOPHILS 0.2 % (0-2); EOSINOPHILS 1.5 % (0-7); HEMATOCRIT 30.7 % (36.0-48.0); HEMOGLOBIN 9.9 g/dL (12-16); IMMATURE GRANULOCYTES 0.2 % (0-5); LYMPHOCYTES 13.8 % (15-50); MCH 27.3 pg (26.0-34.0); MCHC 32.2 g/dL (31.0-37.0); MCV 84.6 fL (80.0-100.0); MEAN PLATELET VOLUME 12.4 fL (7.4-10.4); MONOCYTES 11.2 % (2-11); NEUTROPHILS 73.1 % (40-80); PLATELET COUNT 263 10x3/uL (130-400); RBC 3.63 10x6/uL (4.00-5.40); WBC 16.1 10x3/uL (4.8-10.8)
[2018-04-28 05:36] LABS: ANION GAP 12.9 mmol/L (8-16); CALCIUM 8.6 mg/dL (8.5-10.1); CARBON DIOXIDE 29.9 mmol/L (21.0-32.0); CREATININE - SERUM 1.1 mg/dL (0.6-1.3); POTASSIUM - SERUM 3.8 mmol/L (3.5-5.1)
[2018-04-28 08:00] VITALS: BP 102/44
--- NOTE | 2018-04-28 09:25 | NUR ---
Rehab Note- Received call from [facility] with a denial for an inpatient acute rehab stay. A peer to peer can be set up by calling [phone] Ext. [phone] by 04/29/18 @ 7320. Spoke with FERNANDEZ Hernandez. Thank you for this referral! Luisa Barnett RN Clinical Liaison, [facility] Rehab
--- NOTE | 2018-04-28 09:55 | NUR ---
PT SELF TRANSFED SELF FROM BED TO BSC. AND SLID TO FLOOR WHEN TRANSFER BACK TO BED WITHOUT ASSIST. STATED NO INJURY NO INJURY NOTED. AT SHIFT CHANGED
--- NOTE | 2018-04-28 10:30 | NUR ---
PATIENT CO OF SOME PAIN IN HER KNEE. REQUESTS SOME ICE PACKS AND BED BATH
--- NOTE | 2018-04-28 10:37 | MORECARE ---
CASE MANAGEMENT DISCHARGE SUMMARY PATIENT: ISABELA ADAMS UNIT: [id number] ADM DATE: 04/21/18 AGE: 62 : 55 SEX: F ROOM/BED: D.2211 AUTHOR: SUE CANALES PHYSICIAN: REFERRING PHYSICIAN: NICOLETTE ANDERSEN MD DATE OF SERVICE: 04/28/18 Discharge Plan Patient Name: ISABELA ADAMS Facility: [facility]:[place] : 1955 Planned Disposition: Inpatient Rehab Anticipated Discharge Date: Discharge Date: Expected LOS: Initial Reviewer: [email or web address] Initial Review Date: 04/21/2018 Generated: 04/28/18 11:37 am Comments DCP- Discharge Planning Updated by [id number]: Kera Church on 04/27/18 9:[address] SPOKE WITH CONRADO AT INPATIENT REHAB, AWAITING AUTH DCP- Discharge Planning Updated by [email or web address]: Kera Church on 04/24/18 9:[address] Patient Name: ISABELA ADAMS Admission Status: ER Accout number: [id number] Admission Date: 04-21-2018 : 1955 Admission Diagnosis: Attending: NICOLETTE ANDERSEN Current LOS: 3 Anticipated DC Date: Planned Disposition: Inpatient Rehab Primary Insurance: [facility] MEDICARE SOLUTIONS Discharge Planning Comments: CM met with patient to assess discharge planning needs. Patient lives independently at home but when she is discharged she would like to go to inpatient rehab at [facility]. ANDRAE signed. She stated that she has called and spoke with her insurance and they have approved her. I called IPT rehab and they are just now sending out clinicals so we are waiting on auth. She has a walker at home There are no stairs in her home. Her daughter will be the one to drive her home when she is ready. CM will continue to follow and assist with DC planning as needed. IMM was signed and explained. I also gave her a list of Skilled Facilities for her to look at if she is unable to go to inpatient rehab. CM will continue to follow as neeeded Manager Of Hospital: Kera Church DCPIA - Discharge Planning Initial Assessment Updated by [email or web address]: Kera Church on 04/24/18 10:03 am * Is the patient Alert and Oriented? Yes * How many steps to enter\exit or inside your home? * PCP natali * Pharmacy [facility] [address] * Preadmission Environment Home Alone * ADLs Independent * Equipment Rolling Walker * List name and contact numbers for known caregivers / representatives who currently or will assist patient after discharge: Rosario (daughter) [phone] * Verbal permission to speak to the caregivers and representatives has been obtained from the patient. N/A * Community resources currently utilized None * Additional services required to return to the preadmission environment? Yes * Can the patient safely return to the preadmission environment? No * Has this patient been hospitalized within the prior 30 days at any hospital? No Coverage Notice Reviewer: [email or web address] Cain Church Notice Issued Date-Time: 04/24/2018 10:00 Notice Type: IM Discharge Notice Notice Delivered To: Patient Relationship to Patient: Bulk Plant Agent Name: Delivery Method: HAND - Hand Delivered Jada Days: Prior Verbal Notification: Recipient Understood Notice: Yes Recipient Signature: Yes Med Rec Note Co-signed by Attending: Coverage Notice Comment: Last DP export: 04/27/18 9:22 am Patient Name: ISABELA ADAMS Page [id number] at 1037 All edits/amendments must be made on the electronic document DICTATION DATE: 04/28/18 1037 SUPERVISOR CAR INSTALLATIONS: VIKAS 04/28/18 1037 RPT#: [id number] DC DATE: STATUS: ADM IN [facility] [address] [place] [address] END OF REPORT
--- NOTE | 2018-04-28 10:47 | MORECARE ---
CASE MANAGEMENT DISCHARGE SUMMARY PATIENT: ISABELA ADAMS UNIT: [id number] ADM DATE: 04/21/18 AGE: 62 : 55 SEX: F ROOM/BED: D.2211 AUTHOR: SUE CANALES PHYSICIAN: REFERRING PHYSICIAN: NICOLETTE ANDERSEN MD DATE OF SERVICE: 04/28/18 Discharge Plan Patient Name: ISABELA ADAMS Facility: [facility]:[place] : 1955 Planned Disposition: Inpatient Rehab Anticipated Discharge Date: Discharge Date: Expected LOS: Initial Reviewer: [email or web address] Initial Review Date: 04/21/2018 Generated: 04/28/18 11:47 am Comments DCP- Discharge Planning Updated by [id number]: Kera Church on 04/28/18 9:[address] Patient received a denial for inpatient rehab. I explained to her about skilled. ANDRAE with the [facility] will send referral to there, IMM served and explained. Patient is concerned about leaving with her WBC high. DCP- Discharge Planning Updated by [id number]: Kera Church on 04/27/18 9:[address] SPOKE WITH CONRADO AT INPATIENT REHAB, AWAITING AUTH DCP- Discharge Planning Updated by [email or web address]: Kera Church on 04/24/18 9:[address] Patient Name: ISABELA ADAMS Admission Status: ER Accout number: [id number] Admission Date: 04-21-2018 : 1955 Admission Diagnosis: Attending: NICOLETTE ANDERSEN Current LOS: 3 Anticipated DC Date: Planned Disposition: Inpatient Rehab Primary Insurance: [facility] MEDICARE SOLUTIONS Discharge Planning Comments: CM met with patient to assess discharge planning needs. Patient lives independently at home but when she is discharged she would like to go to inpatient rehab at [facility]. ANDRAE signed. She stated that she has called and spoke with her insurance and they have approved her. I called IPT rehab and they are just now sending out clinicals so we are waiting on auth. She has a walker at home There are no stairs in her home. Her daughter will be the one to drive her home when she is ready. CM will continue to follow and assist with DC planning as needed. IMM was signed and explained. I also gave her a list of Skilled Facilities for her to look at if she is unable to go to inpatient rehab. CM will continue to follow as neeeded Home Care Specialist: Kera Church DCPIA - Discharge Planning Initial Assessment Updated by [email or web address]: Kera Church on 04/24/18 10:03 am * Is the patient Alert and Oriented? Yes * How many steps to enter\exit or inside your home? * PCP natali * Pharmacy [facility] [address] * Preadmission Environment Home Alone * ADLs Independent * Equipment Rolling Walker * List name and contact numbers for known caregivers / representatives who currently or will assist patient after discharge: Rosario (daughter) [phone] * Verbal permission to speak to the caregivers and representatives has been obtained from the patient. N/A * Community resources currently utilized None * Additional services required to return to the preadmission environment? Yes * Can the patient safely return to the preadmission environment? No * Has this patient been hospitalized within the prior 30 days at any hospital? No Coverage Notice Reviewer: [id number] - Kera Church Notice Issued Date-Time: 04/24/2018 10:00 Notice Type: IM Discharge Notice Notice Delivered To: Patient Relationship to Patient: Head Of Stock Name: Delivery Method: HAND - Hand Delivered Jada Days: Prior Verbal Notification: Recipient Understood Notice: Yes Recipient Signature: Yes Med Rec Note Co-signed by Attending: Coverage Notice Comment: Reviewer: [id number] Cain Church Notice Issued Date-Time: 04/28/2018 10:30 Notice Type: IM Discharge Notice Notice Delivered To: Patient Relationship to Patient: Head Of Stock Name: Delivery Method: HAND - Hand Delivered Jada Days: Prior Verbal Notification: Recipient Understood Notice: Yes Recipient Signature: Yes Med Rec Note Co-signed by Attending: Coverage Notice Comment: Last DP export: 04/28/18 9:37 am Patient Name: ISABELA ADAMS Page [id number] at 1047 All edits/amendments must be made on the electronic document DICTATION DATE: 04/28/18 1046 BULLET LUBRICANT MIXER: VIKAS 04/28/18 1046 RPT#: [id number] DC DATE: STATUS: ADM IN [facility] [address] [place] [address] END OF REPORT
--- NOTE | 2018-04-28 10:55 | MORECARE ---
CASE MANAGEMENT DISCHARGE SUMMARY PATIENT: ISABELA ADAMS UNIT: [id number] ADM DATE: 04/21/18 AGE: 62 : 55 SEX: F ROOM/BED: D.2211 AUTHOR: SUE CANALES PHYSICIAN: REFERRING PHYSICIAN: NICOLETTE ANDERSEN MD DATE OF SERVICE: 04/28/18 Discharge Plan Patient Name: ISABELA ADAMS Facility: [facility]:[place] : 1955 Planned Disposition: Inpatient Rehab Anticipated Discharge Date: Discharge Date: Expected LOS: Initial Reviewer: [email or web address] Initial Review Date: 04/21/2018 Generated: 04/28/18 11:55 am Comments DCP- Discharge Planning Updated by [id number]: Kera Church on 04/28/18 9:[address] Patient received a denial for inpatient rehab. I explained to her about skilled. ANDRAE with the [facility] will send referral to there, IMM served and explained. Patient is concerned about leaving with her WBC high. DCP- Discharge Planning Updated by [email or web address]: Kera Church on 04/27/18 9:[address] SPOKE WITH CONRADO AT INPATIENT REHAB, AWAITING AUTH DCP- Discharge Planning Updated by [email or web address]: Kera Church on 04/24/18 9:[address] Patient Name: ISABELA ADAMS Admission Status: ER Accout number: [id number] Admission Date: 04-21-2018 : 1955 Admission Diagnosis: Attending: NICOLETTE ANDERSEN Current LOS: 3 Anticipated DC Date: Planned Disposition: Inpatient Rehab Primary Insurance: [facility] MEDICARE SOLUTIONS Discharge Planning Comments: CM met with patient to assess discharge planning needs. Patient lives independently at home but when she is discharged she would like to go to inpatient rehab at [facility]. ANDRAE signed. She stated that she has called and spoke with her insurance and they have approved her. I called IPT rehab and they are just now sending out clinicals so we are waiting on auth. She has a walker at home There are no stairs in her home. Her daughter will be the one to drive her home when she is ready. CM will continue to follow and assist with DC planning as needed. IMM was signed and explained. I also gave her a list of Skilled Facilities for her to look at if she is unable to go to inpatient rehab. CM will continue to follow as neeeded Collision Technician: Kera Church DCPIA - Discharge Planning Initial Assessment Updated by [email or web address]: Kera Church on 04/24/18 10:03 am * Is the patient Alert and Oriented? Yes * How many steps to enter\exit or inside your home? * PCP natali * Pharmacy [facility] [address] * Preadmission Environment Home Alone * ADLs Independent * Equipment Rolling Walker * List name and contact numbers for known caregivers / representatives who currently or will assist patient after discharge: Rosario (daughter) [phone] * Verbal permission to speak to the caregivers and representatives has been obtained from the patient. N/A * Community resources currently utilized None * Additional services required to return to the preadmission environment? Yes * Can the patient safely return to the preadmission environment? No * Has this patient been hospitalized within the prior 30 days at any hospital? No External Providers External Provider: [facility] Next Contact Date: Service Request Date: Service Type: Resolution: Reviewer: Comments: Coverage Notice Reviewer: [id number] Cain Church Notice Issued Date-Time: 04/24/2018 10:00 Notice Type: IM Discharge Notice Notice Delivered To: Patient Relationship to Patient: Mail Messenger Contractor Name: Delivery Method: HAND - Hand Delivered Jada Days: Prior Verbal Notification: Recipient Understood Notice: Yes Recipient Signature: Yes Med Rec Note Co-signed by Attending: Coverage Notice Comment: Reviewer: [id number] - Kera Church Notice Issued Date-Time: 04/28/2018 10:30 Notice Type: IM Discharge Notice Notice Delivered To: Patient Relationship to Patient: Mail Messenger Contractor Name: Delivery Method: HAND - Hand Delivered Jada Days: Prior Verbal Notification: Recipient Understood Notice: Yes Recipient Signature: Yes Med Rec Note Co-signed by Attending: Coverage Notice Comment: Last DP export: 04/28/18 9:47 am Patient Name: ISABELA ADAMS Page [id number] at 1055 All edits/amendments must be made on the electronic document DICTATION DATE: 04/28/18 105 IMMIGRATION MANAGER: VIKAS 04/28/18 1054 RPT#: [id number] DC DATE: STATUS: ADM IN [facility] [address] [facility] [place] [address] END OF REPORT
--- NOTE | 2018-04-28 12:12 | NUR ---
NUTRITION F/U PT TOLERATING DIABETIC DIET WITH GOOD INTAKE RECENT MEALS. REMAINS AT LOW NUTRITIONAL RISK. RD FOLLOWING
[2018-04-28 12:30] VITALS: BP 120/60
--- NOTE | 2018-04-28 14:22 | NUR ---
OT NOTE: PT VERY COOPERATIVE. REPORTED THAT SHE JUST GOT COMFORTABLE IN BED, SHE HAD FALLEN THIS AM WHILE GETTING UP FROM TOILET AND HAS HAD SIGNIFICANT PAIN IN HER L KNEE. PT ABLE TO PERFORM BED MOB WITH MIN ASSIST FOR ROLLING AND SUPINE TO SIT. SIT TO STAND WITH MIN ASSIST AND USE OF WALKER FOR UE SUPPORT. ABLE TO TAKE A FEW STEPS WITH WALKER WITH TTWB. PT WILL BENEFIT FROM UE STRENGTHENING; ENDURANCE; AND ADL TRAINING, SHE LIVES ALONE. PT OBVIOUSLY HAVING DIFFICULTY WITH ADLS AND TRANSFERS, INDICATED BY FALL EARLIER THIS AM. CALVIN TAMAYO, OTR/L
[2018-04-28 16:00] VITALS: BP 129/54
--- NOTE | 2018-04-28 17:57 | NUR ---
OT NOTE: PT COMPLETED BED MOB AND SIT TO STAND WITH MIN A. THANK YOU, KEVIN ROSADO
[2018-04-28 21:34] VITALS: BP 131/73
--- NOTE | 2018-04-29 02:29 | NUR ---
EYES CLOSED RESPIRATIONS WITH EASE AND UNLABORED.
[2018-04-29 06:18] VITALS: BP 126/55
[2018-04-29 06:43] LABS: ANION GAP 11.2 mmol/L (8-16); CALCIUM 8.5 mg/dL (8.5-10.1); CARBON DIOXIDE 33.7 mmol/L (21.0-32.0); CREATININE - SERUM 0.9 mg/dL (0.6-1.3); POTASSIUM - SERUM 3.9 mmol/L (3.5-5.1)
[2018-04-29 06:51] LABS: BASOPHILS 0.2 % (0-2); EOSINOPHILS 1.7 % (0-7); HEMATOCRIT 30.4 % (36.0-48.0); HEMOGLOBIN 9.8 g/dL (12-16); IMMATURE GRANULOCYTES 0.4 % (0-5); LYMPHOCYTES 12.7 % (15-50); MCH 27.5 pg (26.0-34.0); MCHC 32.2 g/dL (31.0-37.0); MCV 85.2 fL (80.0-100.0); MEAN PLATELET VOLUME 12.1 fL (7.4-10.4); MONOCYTES 11.9 % (2-11); NEUTROPHILS 73.1 % (40-80); PLATELET COUNT 279 10x3/uL (130-400); RBC 3.57 10x6/uL (4.00-5.40); RDW 13.8 % (11.5-14.5); WBC 16.5 10x3/uL (4.8-10.8)
--- NOTE | 2018-04-29 08:30 | NUR ---
PT RESTING IN BED. DENIES PAIN. NO S/S OF ACUTE DISTRESS. CL IN PLACE.
[2018-04-29 09:13] VITALS: BP 171/50
--- NOTE | 2018-04-29 14:47 | NUR ---
LATE ENTRY 929.RECHECK TO 0900 BP 122/63. HELD AM BP MEDS. NO S/S OF ACUTE DISTRESS. CL IN PLACE.
[2018-04-29 15:16] VITALS: BP 127/72
--- NOTE | 2018-04-29 15:26 | NUR ---
IV DC WITH TIP INTACT. RESITED TO L WRIST. FLUSHED WELL. NO REDDNESS OR SWELLING NOTED. NO S/S OF ACUTE DISTRESS. CL IN PLACE.
[2018-04-29 17:52] VITALS: BP 118/55
--- NOTE | 2018-04-29 20:23 | NUR ---
PT RESTING IN BED. L FOOT ELEVATED WITH 2 PILLOWS. NO S/S OF ACUTE DISTRESS. CL IN PLACE.
--- NOTE | 2018-04-29 21:00 | NUR ---
PT SITTING UP IN BED, NO SIGNS OF DISTRESS. ALERT AND ORIENTED. LEFT WRIST IV INFUSING NS @ KVO. LEFT ANKLE IN MARIAA WRAP PROPPED ON PILLOW. PT STAES PAIN 08/31. RECIEVING OXY ORDERED. RADHA ON. SCD TO RIGHT LEG. NO COMPLAINTS OR NEEDS AT THIS TIME.CL IN REACH
[2018-04-29 22:24] VITALS: BP 143/80
[2018-04-30 05:01] LABS: BASOPHILS 0.2 % (0-2); EOSINOPHILS 1.8 % (0-7); HEMATOCRIT 29.8 % (36.0-48.0); HEMOGLOBIN 9.6 g/dL (12-16); IMMATURE GRANULOCYTES 0.3 % (0-5); LYMPHOCYTES 12.5 % (15-50); MCH 27.1 pg (26.0-34.0); MCHC 32.2 g/dL (31.0-37.0); MCV 84.2 fL (80.0-100.0); MEAN PLATELET VOLUME 11.5 fL (7.4-10.4); MONOCYTES 10.2 % (2-11); PLATELET COUNT 290 10x3/uL (130-400); RBC 3.54 10x6/uL (4.00-5.40); RDW 13.7 % (11.5-14.5); WBC 13.6 10x3/uL (4.8-10.8)
[2018-04-30 05:25] LABS: ANION GAP 9.1 mmol/L (8-16); CALCIUM 8.5 mg/dL (8.5-10.1); CARBON DIOXIDE 33.7 mmol/L (21.0-32.0); POTASSIUM - SERUM 3.8 mmol/L (3.5-5.1)
[2018-04-30 05:49] VITALS: BP 131/61
--- NOTE | 2018-04-30 07:20 | NUR ---
PT RESTING IN BED WITH MD AT BEDSIDE COMPLETING DRESSING CHANGE TO LEFT ANKLE AND PLACING BOOT TO LLE. PT JUAN CARLOS WELL. REPORTS PAIN 5/10, BUT DENIES NEED FOR PAIN MEDICATION AT THIS TIME. IV TO LEFT FOREARM WITH NS @ KVO INTACT INFUSING VIA PUMP. DENIES FURTHER NEEDS AT THIS TIME. CL WITHIN REACH. ENCOURAGED TO CALL WITH NEEDS. CONTINUE POC
[2018-04-30 08:30] VITALS: BP 154/59
[2018-04-30 08:44] VITALS: BP 121/51
--- NOTE | 2018-04-30 10:30 | NUR ---
PT ASSISTED TO BEDSIDE COMMODE AND BACK TO BED. NON WEIGHTBEARING TO LEFT LOWER EXTREMITY. BM NOTED AT THIS TIME. DENIES FURTHER NEEDS AT THIS TIME. CL WITHIN REACH. WILL CONTINUE TO MONITOR.
[2018-04-30 11:45] VITALS: BP 116/61
--- NOTE | 2018-04-30 15:15 | NUR ---
PT RESTING IN BED WITH EYES CLOSED. NO ACUTE DISTRESS NOTED. CL WITHIN REACH. WILL CONTINUE TO MONITOR.
--- NOTE | 2018-04-30 20:00 | NUR ---
PT LYING IN BED, NO SIGNS OF DISTRESS. ALERT AND ORIENTED. LYING ON RIGHT SIDE. LEFT ANKLE W/ DRESSING, MARIAA WRAP AND IN BOOT. PROPPED ON PILLOWS. SCD TO RIGHT LEG. PT STATES PAIN IS STILL 7/10 AFTER RECIEVING OXY AT 1840. GAVE VISTARIL ORDERED. BED LOWEST POSITION, SRX2, CL IN REACH. RADHA ON. WILL CONTINUE TO MONITOR
--- NOTE | 2018-04-30 21:30 | NUR ---
BS 206, GAVE 12 UNITS PER SS. PT STATES PAIN IS 6/10 AFTER VISTARIL. DENIES NEED FOR PAIN MED AT THIS TIME
--- NOTE | 2018-04-30 22:40 | NUR ---
GAVE OXY ORDERED FOR PAIN 10/31. DENIES OTHER NEEDS AT THIS TIME. CL IN REACH, WILL CONTINUE TO MONITOR
[2018-04-30 23:16] VITALS: BP 154/59
--- NOTE | 2018-05-01 03:00 | NUR ---
PT STATES PAIN 5/, GAVE OXY ORDERED. NO OTHER NEEDS AT THIS TIME. CL IN REACH
[2018-05-01 03:38] VITALS: BP 112/69; BP 137/73
[2018-05-01 06:17] LABS: BASOPHILS 0.2 % (0-2); EOSINOPHILS 1.7 % (0-7); HEMATOCRIT 30.9 % (36.0-48.0); HEMOGLOBIN 9.8 g/dL (12-16); IMMATURE GRANULOCYTES 0.6 % (0-5); LYMPHOCYTES 13.2 % (15-50); MCH 27.4 pg (26.0-34.0); MCHC 31.7 g/dL (31.0-37.0); MEAN PLATELET VOLUME 11.6 fL (7.4-10.4); MONOCYTES 11.2 % (2-11); NEUTROPHILS 73.1 % (40-80); PLATELET COUNT 325 10x3/uL (130-400); RBC 3.58 10x6/uL (4.00-5.40); RDW 13.8 % (11.5-14.5); WBC 14.3 10x3/uL (4.8-10.8)
[2018-05-01 06:25] LABS: MCV 86.3 fL (80.0-100.0)
[2018-05-01 07:25] LABS: ALBUMIN 2.2 g/dL (3.4-5.0); ANION GAP 17.2 mmol/L (8-16); BILIRUBIN - TOTAL 0.3 mg/dL (0.2-1.3); CALCIUM 8.4 mg/dL (8.5-10.1); CARBON DIOXIDE 28.1 mmol/L (21.0-32.0); POTASSIUM - SERUM 4.3 mmol/L (3.5-5.1); PROTEIN - SERUM 6.3 g/dL (6.4-8.2)
[2018-05-01 11:40] VITALS: BP 135/78
--- NOTE | 2018-05-01 13:49 | MORECARE ---
CASE MANAGEMENT DISCHARGE SUMMARY PATIENT: ISABELA ADAMS UNIT: [id number] ADM DATE: 04/21/18 AGE: 62 : 55 SEX: F ROOM/BED: D.2211 AUTHOR: SUE CANALES PHYSICIAN: REFERRING PHYSICIAN: NICOLETTE ANDERSEN MD DATE OF SERVICE: 05/01/18 Discharge Plan Patient Name: ISABELA ADAMS Facility: [facility]:[place] : 1955 Planned Disposition: Inpatient Rehab Anticipated Discharge Date: Discharge Date: Expected LOS: Initial Reviewer: [email or web address] Initial Review Date: 04/21/2018 Generated: 05/01/18 2:48 pm Comments DCP- Discharge Planning Updated by [email or web address]: Kera Church on 05/01/18 12:[address] Patient has been accepted to [facility] ([facility] [phone]) they will accept her over the weekend when she is stable to [place]. Her auth will after Friday and will need to be pre auth again on Friday if she does not transfer. DCP- Discharge Planning Updated by [email or web address]: Kera Church on 04/28/18 9:[address] Patient received a denial for inpatient rehab. I explained to her about skilled. ANDRAE with the [facility] will send referral to there, IMM served and explained. Patient is concerned about leaving with her WBC high. DCP- Discharge Planning Updated by [email or web address]: Kear Church on 04/27/18 9:[address] SPOKE WITH CONRADO AT INPATIENT REHAB, AWAITING AUTH DCP- Discharge Planning Updated by [email or web address]: Kera Church on 04/24/18 9:[address] Patient Name: ISABELA ADAMS Admission Status: ER Accout number: [id number] Admission Date: 04-21-2018 : 1955 Admission Diagnosis: Attending: NICOLETTE ANDERSEN Current LOS: 3 Anticipated DC Date: Planned Disposition: Inpatient Rehab Primary Insurance: [facility] MEDICARE SOLUTIONS Discharge Planning Comments: CM met with patient to assess discharge planning needs. Patient lives independently at home but when she is discharged she would like to go to inpatient rehab at [facility]. ANDRAE signed. She stated that she has called and spoke with her insurance and they have approved her. I called IPT rehab and they are just now sending out clinicals so we are waiting on auth. She has a walker at home There are no stairs in her home. Her daughter will be the one to drive her home when she is ready. CM will continue to follow and assist with DC planning as needed. IMM was signed and explained. I also gave her a list of Skilled Facilities for her to look at if she is unable to go to inpatient rehab. CM will continue to follow as neeeded [place] Underwriter: Kera Church DCPIA - Discharge Planning Initial Assessment Updated by [email or web address]: Kera Church on 04/24/18 10:03 am * Is the patient Alert and Oriented? Yes * How many steps to enter\exit or inside your home? * PCP natali * Pharmacy [facility] [address] * Preadmission Environment Home Alone * ADLs Independent * Equipment Rolling Walker * List name and contact numbers for known caregivers / representatives who currently or will assist patient after discharge: Rosario (daughter) [phone] * Verbal permission to speak to the caregivers and representatives has been obtained from the patient. N/A * Community resources currently utilized None * Additional services required to return to the preadmission environment? Yes * Can the patient safely return to the preadmission environment? No * Has this patient been hospitalized within the prior 30 days at any hospital? No Coverage Notice Reviewer: [id number] Cain Church Notice Issued Date-Time: 04/24/2018 10:00 Notice Type: IM Discharge Notice Notice Delivered To: Patient Relationship to Patient: Human Performance Technologist Name: Delivery Method: HAND - Hand Delivered Jada Days: Prior Verbal Notification: Recipient Understood Notice: Yes Recipient Signature: Yes Med Rec Note Co-signed by Attending: Coverage Notice Comment: Reviewer: [email or web address] Cain Church Notice Issued Date-Time: 04/28/2018 10:30 Notice Type: IM Discharge Notice Notice Delivered To: Patient Relationship to Patient: Human Performance Technologist Name: Delivery Method: HAND - Hand Delivered Jada Days: Prior Verbal Notification: Recipient Understood Notice: Yes Recipient Signature: Yes Med Rec Note Co-signed by Attending: Coverage Notice Comment: Last DP export: 04/28/18 9:55 am Patient Name: ISABELA ADAMS Page [id number] at 1349 All edits/amendments must be made on the electronic document DICTATION DATE: 05/01/181347 PAYROLL AND BENEFITS SPECIALIST: VIKAS 05/01/181347 RPT#: [id number] DC DATE: STATUS: ADM IN [facility] [address] [place] [address] END OF REPORT
[2018-05-01 16:00] VITALS: BP 115/64
[2018-05-01 19:34] VITALS: BP 107/55
[2018-05-01 23:35] VITALS: BP 134/68
[2018-05-02 04:00] VITALS: BP 112/52
[2018-05-02 06:06] LABS: BASOPHILS 0.4 % (0-2); EOSINOPHILS 1.6 % (0-7); HEMATOCRIT 29.3 % (36.0-48.0); HEMOGLOBIN 9.2 g/dL (12-16); IMMATURE GRANULOCYTES 0.7 % (0-5); LYMPHOCYTES 18.2 % (15-50); MCH 26.9 pg (26.0-34.0); MCHC 31.4 g/dL (31.0-37.0); MCV 85.7 fL (80.0-100.0); MONOCYTES 8.7 % (2-11); NEUTROPHILS 70.4 % (40-80); PLATELET COUNT 314 10x3/uL (130-400); RBC 3.42 10x6/uL (4.00-5.40); RDW 13.9 % (11.5-14.5); WBC 13.6 10x3/uL (4.8-10.8)
[2018-05-02 06:39] LABS: ALBUMIN 1.9 g/dL (3.4-5.0); ANION GAP 8.2 mmol/L (8-16); BILIRUBIN - TOTAL 0.28 mg/dL (0.2-1.3); CALCIUM 8.3 mg/dL (8.5-10.1); CARBON DIOXIDE 32.8 mmol/L (21.0-32.0); PROTEIN - SERUM 6.7 g/dL (6.4-8.2)
[2018-05-02 08:39] VITALS: BP 100/50
[2018-05-02] MEDS ORDERED: ZYVOX600 MG PO (10:59)
[2018-05-02] MEDS ORDERED: ASPIRIN81 MG PO (10:59)
[2018-05-02] MEDS ORDERED: FLORAJEN3 CAPS460 MG PO (10:59)
[2018-05-02] MEDS ORDERED: CIPRO500 MG PO (10:59)
--- NOTE | 2018-05-02 12:23 | NUR ---
PATIENT STATES SHE HAS NOT HAD THE FLU VACCINE THIS SEASON AND WOULD LIKE TO HAVE THE FLU VACCINE PRIOR TO BEING DISCHARGED. ORDER PLACED PER PROTOCOL FOR INFLUENZA VACCINE.
--- NOTE | 2018-05-02 13:59 | MORECARE ---
CASE MANAGEMENT DISCHARGE SUMMARY PATIENT: ISABELA ADAMS UNIT: [id number] ADM DATE: 04/21/18 AGE: 62 : 55 SEX: F ROOM/BED: D.2211 AUTHOR: PARKER,DOC PHYSICIAN: REFERRING PHYSICIAN: NICOLETTE ANDERSEN MD DATE OF SERVICE: 05/02/18 Discharge Plan Patient Name: ISABELA ADAMS Facility: [facility]:[place] : 1955 Planned Disposition: Inpatient Rehab Anticipated Discharge Date: Discharge Date: Expected LOS: Initial Reviewer: [email or web address] Initial Review Date: 04/21/2018 Generated: 05/02/18 2:59 pm Comments DCP- Discharge Planning Updated by [email or web address]: Oriana Blakely on 05/02/18 12:[address] CM met with patient this morning regarding dc to [facility]. Patient signed IMM, ANDRAE for [facility]. CM contacted Jules with the facility and he states the facility is in agreement to her coming today to a Skilled Bed. [facility] will arrange for their van to transport patient. Unit phone number provided for contact and nurse notified. Patient voices no other needs at this time. Oriana Blakely RN CM DCP- Discharge Planning Updated by [email or web address]: Kera Church on 05/01/18 12:[address] Patient has been accepted to [facility] (Zandra Katie [phone]) they will accept her over the weekend when she is stable to DC. Her auth will after Friday and will need to be pre auth again on Friday if she does not transfer. DCP- Discharge Planning Updated by [email or web address]: Kera Church on 04/28/18 9:[address] Patient received a denial for inpatient rehab. I explained to her about skilled. ANDRAE with the [facility] will send referral to there, IMM served and explained. Patient is concerned about leaving with her WBC high. DCP- Discharge Planning Updated by [email or web address]: Kera Church on 04/27/18 9:[address] SPOKE WITH CONRADO AT INPATIENT REHAB, AWAITING AUTH DCP- Discharge Planning Updated by [email or web address]: Kera Church on 04/24/18 9:[address] Patient Name: ISABELA ADAMS Admission Status: ER Accout number: [id number] Admission Date: 04-21-2018 : 1955 Admission Diagnosis: Attending: NICOLETTE ANDERSEN Current LOS: 3 Anticipated DC Date: Planned Disposition: Inpatient Rehab Primary Insurance: [facility] MEDICARE SOLUTIONS Discharge Planning Comments: CM met with patient to assess discharge planning needs. Patient lives independently at home but when she is discharged she would like to go to inpatient rehab at [facility]. ANDRAE signed. She stated that she has called and spoke with her insurance and they have approved her. I called IPT rehab and they are just now sending out clinicals so we are waiting on auth. She has a walker at home There are no stairs in her home. Her daughter will be the one to drive her home when she is ready. CM will continue to follow and assist with DC planning as needed. IMM was signed and explained. I also gave her a list of Skilled Facilities for her to look at if she is unable to go to inpatient rehab. CM will continue to follow as neeeded Manager Books: Kera Church DCPIA - Discharge Planning Initial Assessment Updated by [email or web address]: Kera Church on 04/24/18 10:03 am * Is the patient Alert and Oriented? Yes * How many steps to enter\exit or inside your home? * PCP natali * Pharmacy [facility] * Preadmission Environment Home Alone * ADLs Independent * Equipment Rolling Walker * List name and contact numbers for known caregivers / representatives who currently or will assist patient after discharge: Rosario (daughter) [phone] * Verbal permission to speak to the caregivers and representatives has been obtained from the patient. N/A * Community resources currently utilized None * Additional services required to return to the preadmission environment? Yes * Can the patient safely return to the preadmission environment? No * Has this patient been hospitalized within the prior 30 days at any hospital? No Coverage Notice Reviewer: [id number] - Kera Church Notice Issued Date-Time: 04/24/2018 10:00 Notice Type: IM Discharge Notice Notice Delivered To: Patient Relationship to Patient: Contract Analyst Name: Delivery Method: HAND - Hand Delivered Jada Days: Prior Verbal Notification: Recipient Understood Notice: Yes Recipient Signature: Yes Med Rec Note Co-signed by Attending: Coverage Notice Comment: Reviewer: [id number] - Kera Church Notice Issued Date-Time: 04/28/2018 10:30 Notice Type: IM Discharge Notice Notice Delivered To: Patient Relationship to Patient: Contract Analyst Name: Delivery Method: HAND - Hand Delivered Jada Days: Prior Verbal Notification: Recipient Understood Notice: Yes Recipient Signature: Yes Med Rec Note Co-signed by Attending: Coverage Notice Comment: Last DP export: 05/01/18 12:48 pm Patient Name: ISABELA ADAMS Page [phone] at 1359 All edits/amendments must be made on the electronic document DICTATION DATE: 05/02/18 1359 KAYAKING INSTRUCTOR: VIKSA 05/02/18 1359 RPT#: [id number] DC DATE: STATUS: ADM IN [facility] [address] [place] [address] END OF REPORT
--- NOTE | 2018-05-02 14:12 | NUR ---
FLU SHOT GIVEN. IV REMOVED FROM LEFT HAND, NO REDNESS OR EDEMA AT SITE. DISCHARGE INSTRUCTIONS GIVEN TO PATIENT, REPORT CALLED TO [facility]
--- NOTE | 2018-05-04 11:18 | MORECARE ---
CASE MANAGEMENT DISCHARGE SUMMARY PATIENT: HEATHER ADAMS UNIT: [id number] ADM DATE: 04/21/18 AGE: 62 : 55 SEX: F ROOM/BED: D.2211 AUTHOR: SUE CANALES PHYSICIAN: REFERRING PHYSICIAN: NICOLETTE ANDERSEN MD DATE OF SERVICE: 05/04/18 Discharge Plan Patient Name: HEATHER ADAMS Facility: [facility]:[place] : 1955 Planned Disposition: Inpatient Rehab Anticipated Discharge Date: Discharge Date: 05/02/2018 Expected LOS: 0 Initial Reviewer: [email or web address] Initial Review Date: 04/21/2018 Generated: 05/04/18 12:18 pm Comments DCP- Discharge Planning Updated by [email or web address]: Oriana Blakely on 05/02/18 12:[address] CM met with patient this morning regarding dc to [facility]. Patient signed IMM, ANDRAE for [facility]. CM contacted Jules with the facility and he states the facility is in agreement to her coming today to a Skilled Bed. [facility] will arrange for their van to transport patient. Unit phone number provided for contact and nurse notified. Patient voices no other needs at this time. Oriana Blakely RN, CM DCP- Discharge Planning Updated by [id number]: Kera Church on 05/01/18 12:[address] Patient has been accepted to [facility] ([facility] [phone]) they will accept her over the weekend when she is stable to DC. Her auth will after Friday and will need to be pre auth again on Friday if she does not transfer. DCP- Discharge Planning Updated by [email or web address]: Kera Church on 04/28/18 9:[address] Patient received a denial for inpatient rehab. I explained to her about skilled. ANDRAE with the [facility] will send referral to there, IMM served and explained. Patient is concerned about leaving with her WBC high. DCP- Discharge Planning Updated by [email or web address]: Kera Church on 04/27/18 9:[address] SPOKE WITH CONRADO AT INPATIENT REHAB, AWAITING AUTH DCP- Discharge Planning Updated by [email or web address]: Kera Church on 04/24/18 9:[address] Patient Name: HEATHER ADAMS Admission Status: ER Accout number: [id number] Admission Date: 04-21-2018 : 1955 Admission Diagnosis: Attending: NICOLETTE ANDERSEN Current LOS: 3 Anticipated DC Date: Planned Disposition: Inpatient Rehab Primary Insurance: [facility] MEDICARE SOLUTIONS Discharge Planning Comments: CM met with patient to assess discharge planning needs. Patient lives independently at home but when she is discharged she would like to go to inpatient rehab at [facility]. ANDRAE signed. She stated that she has called and spoke with her insurance and they have approved her. I called IPT rehab and they are just now sending out clinicals so we are waiting on auth. She has a walker at home There are no stairs in her home. Her daughter will be the one to drive her home when she is ready. CM will continue to follow and assist with DC planning as needed. IMM was signed and explained. I also gave her a list of Skilled Facilities for her to look at if she is unable to go to inpatient rehab. CM will continue to follow as neeeded Assistant Professor Of English: Kera Church DCPIA - Discharge Planning Initial Assessment Updated by [email or web address]: Kera Church on 04/24/18 10:03 am * Is the patient Alert and Oriented? Yes * How many steps to enter\exit or inside your home? * PCP natali * Pharmacy [facility] * Preadmission Environment Home Alone * ADLs Independent * Equipment Rolling Walker * List name and contact numbers for known caregivers / representatives who currently or will assist patient after discharge: Rosario (daughter) [phone] * Verbal permission to speak to the caregivers and representatives has been obtained from the patient. N/A * Community resources currently utilized None * Additional services required to return to the preadmission environment? Yes * Can the patient safely return to the preadmission environment? No * Has this patient been hospitalized within the prior 30 days at any hospital? No Coverage Notice Reviewer: [id number] - Kera Church Notice Issued Date-Time: 04/24/2018 10:00 Notice Type: IM Discharge Notice Notice Delivered To: Patient Relationship to Patient: Merchandising Team Lead Name: Delivery Method: HAND - Hand Delivered Jada Days: Prior Verbal Notification: Recipient Understood Notice: Yes Recipient Signature: Yes Med Rec Note Co-signed by Attending: Coverage Notice Comment: Reviewer: [email or web address] - Kera Church Notice Issued Date-Time: 04/28/2018 10:30 Notice Type: IM Discharge Notice Notice Delivered To: Patient Relationship to Patient: Merchandising Team Lead Name: Delivery Method: HAND - Hand Delivered Jada Days: Prior Verbal Notification: Recipient Understood Notice: Yes Recipient Signature: Yes Med Rec Note Co-signed by Attending: Coverage Notice Comment: Reviewer: [id number] - Oriana Blakely Notice Issued Date-Time: 05/02/2018 11:12 Notice Type: IM Admission Notice Notice Delivered To: Patient Relationship to Patient: Self Merchandising Team Lead Name: Heather Adams Delivery Method: - Jada Days: Prior Verbal Notification: Recipient Understood Notice: Recipient Signature: Med Rec Note Co-signed by Attending: Coverage Notice Comment: Last DP export: 05/02/18 12:59 pm Patient Name: HEATHER ADAMS Page [phone] at 1118 All edits/amendments must be made on the electronic document DICTATION DATE: 05/04/181117 HEAD OF SCIENCE: VIKAS 05/04/18 1118 RPT#: [id number] DC DATE:05/02/18 STATUS: DIS IN [place] [id number] [place] [address] END OF REPORT
== END 2018-05-02 15:31 | DRG 493 ==
LOC: D.ER 18:11 → D.MS 21:29 → D.EDHOLD 21:29 → D.MS 22:51 → D.SDCHOLD 04-27 08:42 → D.MS 04-27 08:43
PROVIDERS: Family Medicine; Orthopaedic Surgery; ADMIT Internal Medicine Nephrology
PROC: 0QSK0ZZ Reposition Left Fibula, Open Approach (ICD-10-PCS; 2018-04-22)
PROC: 0QSH04Z Reposition Left Tibia with Internal Fixation Device, Open Approach (ICD-10-PCS; principal; 2018-04-22 12:00)
DX: S82.832A Other fracture of upper and lower end of left fibula, initial encounter for closed fracture (principal); N39.0 Urinary tract infection, site not specified; S82.852A Displaced trimalleolar fracture of left lower leg, initial encounter for closed fracture; W19.XXXA Unspecified fall, initial encounter; S93.492A Sprain of other ligament of left ankle, initial encounter; E11.65 Type 2 diabetes mellitus with hyperglycemia; I10 Essential (primary) hypertension; I50.9 Heart failure, unspecified; E11.42 Type 2 diabetes mellitus with diabetic polyneuropathy; Z86.73 Personal history of transient ischemic attack (TIA), and cerebral infarction without residual deficits; B95.2 Enterococcus as the cause of diseases classified elsewhere; B95.7 Other staphylococcus as the cause of diseases classified elsewhere; B96.20 Unspecified Escherichia coli [E. coli] as the cause of diseases classified elsewhere

== ENCOUNTER → 2018-09-03 15:15 | Outpatient (CLI) | payer MEDICARE ==
[~2018-09-03 15:15] MED LIST: ASPIRIN81 MG PO; BUMEX2 MG PO; CIPRO500 MG PO; COZAAR25 MG PO; FLORAJEN3 CAPS460 MG PO; HUMALOG 30100 UNITS/ SC; HYDROCODON-ACET15 ML PO; IBUPROFEN800 MG PO; K-TAB10 MEQ PO; LEXAPRO10 MG PO; LOPRESSOR25 MG PO; NEURONTIN600 MG PO; NITROSTAT0.4 MG SL; PHENERGAN25 M1 PO; RESTORIL15 MG PO; TOUJEO SOL300 UNIT/1 SC; ZANAFLEX4 MG PO; ZYLOPRIM100 MG PO; ZYVOX600 MG PO
== END | disposition home or self-care (01) ==
LOC: D.US 15:15
PROVIDERS: ATTEND Orthopaedic Surgery
DX: R22.42 Localized swelling, mass and lump, left lower limb (principal)

== ENCOUNTER → 2018-09-03 15:37 | Outpatient (CLI) | payer MEDICARE ==
[2018-09-03 17:09] LABS: HEMATOCRIT 40.3 % (36.0-48.0); HEMOGLOBIN 13.1 g/dL (12-16); RBC 4.92 10x6/uL (4.00-5.40); WBC 15.1 10x3/uL (4.8-10.8)
[2018-09-03 17:10] LABS: MCH 26.6 pg (26.0-34.0); MCHC 32.5 g/dL (31.0-37.0); MCV 81.9 fL (80.0-100.0); MEAN PLATELET VOLUME 12.2 fL (7.4-10.4); PLATELET COUNT 271 10x3/uL (130-400); RDW 14.3 % (11.5-14.5)
[2018-09-03 17:11] LABS: EOSINOPHILS 0.7 % (0-7); LYMPHOCYTES 18.5 % (15-50); MONOCYTES 8.2 % (2-11); NEUTROPHILS 72.1 % (40-80)
[2018-09-03 17:12] LABS: BASOPHILS 0.3 % (0-2); ERYTHROCYTE SEDIMENTATION RATE 41 mm/hr (0-30); IMMATURE GRANULOCYTES 0.2 % (0-5)
== END | disposition home or self-care (01) ==
LOC: D.LABREF 15:37
PROVIDERS: ATTEND Orthopaedic Surgery
DX: M25.572 Pain in left ankle and joints of left foot (principal)

== ENCOUNTER 2018-09-11 10:04 | Observation (INO) | payer MEDICARE ==
[2018-09-11 10:42] LABS: HEMATOCRIT 38.6 % (36.0-48.0); HEMOGLOBIN 12.6 g/dL (12-16); MCH 26.7 pg (26.0-34.0); MCHC 32.6 g/dL (31.0-37.0); MCV 81.8 fL (80.0-100.0); MEAN PLATELET VOLUME 12.4 fL (7.4-10.4); RBC 4.72 10x6/uL (4.00-5.40); RDW 14.2 % (11.5-14.5); WBC 10.2 10x3/uL (4.8-10.8)
[2018-09-11 10:51] LABS: ANION GAP 11.1 mmol/L (8-16); CARBON DIOXIDE 31.1 mmol/L (21.0-32.0); CREATININE - SERUM 0.9 mg/dL (0.6-1.3); POTASSIUM - SERUM 3.2 mmol/L (3.5-5.1)
[2018-09-11 12:06] VITALS: BP 140/83; BMI 44.7
--- NOTE | 2018-09-11 16:19 | NUR ---
1505 PT C/O PAIN AND NEUROPATHY. DR. BAPTISTE AT BEDSIDE AND GAVE VERBAL ORDER FOR DILAUDID 0.5MG IV NOW WHILE PT IS WAITING TO GO TO SURGERY.
--- NOTE | 2018-09-11 16:20 | NUR ---
1515 FIRST BAG OF NS HAS INFUSED AND IV IS CLOTTED OFF.
--- NOTE | 2018-09-11 16:21 | NUR ---
1530 IV RESTARTED IN RIGHT FOREARM WITH 20G ANGIOCATH PER DARCIE THACKER RN. 1534 IV DILAUDID GIVEN ORDERED. 1605 PT AWAKE AND TALKING. PAIN HAS GONE FROM A 5 TO A 3 ON THE PAIN SCALE. SEEMS TO BE MORE COMFORTABLE AND IS WAITING TO GO TO SURGERY.
--- NOTE | 2018-09-11 18:39 | NUR ---
PATIENT TRANSFERRED TO MED/SURG ROOM 2230 IN WHEELCHAIR SURGERY IS RESCHEDULED FOR TOMORROW
[2018-09-11 18:43] VITALS: BP 139/79; BMI 44.7
[2018-09-11 20:00] VITALS: BP 139/79
[2018-09-12] VITALS: BP 145/89
[2018-09-12 04:00] VITALS: BP 136/67
--- NOTE | 2018-09-12 04:58 | NUR ---
ASSESSED AT THE BEGINNING OF THE SHIFT. PT IS ALERT AND ORIENTED, ABLE TO VERBALIZE NEEDS. SHE HAS PAIN IN HER LEFT ANKLE AND WE HAVE GIVEN HER MEDS NEEDED AND REQUESTED. SHE IS NPO FOR AM SURGERY AND IS AWARE OF IT. DURING THE NIGHT SHE CALLED AND STATAED SHE WAS ITCHING ALL OVER AND MISERABLE. SHE FELT IT COULD HAVE BEEN THE FACT THAT THEY USED A REGULAR TOURNIQUET AND SHE IS ALLERGIC TO LATEX OR BECAUSE THEY USED BETADINE IN OUT PATIENT TO SWAB HER NOSE FOR GERMS AND SHE IS ALLERGIC TO IODINE. SHE RECEIVED BENADRYL AND THEN WENT TO SLEEP WITH NO MORE COMPLAINTS OF ITCHING. WE POSTED SIGNS ON HER WALL TELLING THE STAFF SHE IS ALLERGIC TO LATEX AND THAT HER RT ARM IS RESERVED.
--- NOTE | 2018-09-12 07:45 | NUR ---
PT AAOX4 PATIENTLY WAITING TO GO TO SURGERY NO SIGNS OF DISTRESS NOTED, NO NEEDS EXPRESSED AT THIS TIME FAMILY AT BEDSIDE WILL CONTINUE TO MONITOR CL IN REACH
[2018-09-12 09:12] VITALS: BP 145/66
--- NOTE | 2018-09-12 09:44 | NUR ---
PT GONE TO SURGERY AT THIS TIME
--- NOTE | 2018-09-12 12:08 | NUR ---
ANESTHESIA AT BEDSIDE FOR BLOCKING OF FEMORAL NERVE.
--- NOTE | 2018-09-12 12:20 | NUR ---
PATIENT TOLERATED BLOCK WELL. STATES PAIN NOW 2/10 ON PAIN SCALE.
[2018-09-12 12:48] VITALS: BP 147/58
[2018-09-12 13:16] VITALS: BMI 44.6
--- NOTE | 2018-09-12 15:40 | OP ---
PATIENT NAME: ISABELA ADAMS MEDICAL RECORD: [id number] :55 LOCATION:D D.2230 ADMISSION DATE:09/11/18 SURGEON: BONG BAPTISTE, DATE OF OPERATION: 09/12/2018 PROCEDURE PERFORMED: Left ankle removal of hardware and culture. PREOPERATIVE DIAGNOSIS: Left ankle painful hardware, possible infection. POSTOPERATIVE DIAGNOSIS: Left ankle painful hardware, possible infection. INDICATIONS: Ms. Adams is a 62-year-old female, who had her left ankle fixed after suffering a severe bimalleolar fracture, dislocation back in March. She has had pain and swelling since. She had labs drawn, ESR, CRP, and CBC. Her white count was elevated last week to 15 and ESR was elevated as well as the CRP. I informed her of this. I told her that she should probably get this removed and we culture it and culture the bone to make sure she did not have osteomyelitis due to the swelling and pain she was having. She also had a DVT scan, which was negative. I told her that some swelling was normal up to 6 months or a year after the surgery, but all that pain and swelling and with the elevated lab work, I decided to take the hardware out and get cultures. She was okay with that. She is aware that she would not be able to bear weight for a couple of weeks and that she may need to be on IV antibiotics as well as she is at risk for blood clots and even . She was okay with that and signed the consent. SURGEON: Bong Baptiste DO DESCRIPTION OF PROCEDURE: The patient was taken to the operative suite after receiving a block by anesthesia in the preoperative area and laid in the supine position, given general anesthetic and LMA was placed. The left lower extremity was prepped and draped in sterile fashion. A time-out was performed, everyone was in agreement with the correct side, site, patient and procedure. The incision began over the lateral plate on the lateral side of the ankle down to the plate and cultures were taken as soon as the incision was made and then 2 grams of Ancef were given. The plate on the lateral side was removed and then the medial side. The 2 cannulated screws were removed as well and then the buttons from the TightRope, there were 2 of them, due to the severity of the injury were removed as well. As soon as that was done, the ankle was stressed and did seem to have some medial space widening, but the talus did not sublux completely off of the tibia. The wounds were thoroughly irrigated and then closed with 2-0 Vicryl in the lateral side and in the medial side and then on the medial side, 4-0 Monocryl in a horizontal mattress fashion and then ZipLine was placed on the lateral side. Adaptic was then placed over all that and then 4 x 4s, ABD, cast padding. ABD was placed on the heel as well under the cast padding and then a 4 x 30 splint was placed posteriorly on the lower extremity and secured with a 6 and a 4-inch Zana wrap. She was then awakened and taken to recovery in stable condition. BLOOD LOSS: Approximately 100 mL. COMPLICATIONS: None. TRANSINT:[id number] Voice Confirmation ID: [id number] DOCUMENT ID: [id number] OPERATIVE REPORT [id number] ISABELA ADAMS MICHAEL D, DO at 1540 CC: LAUREN CUELLAR DO [id number] DICTATION DATE: 09/12/18 1139 CABLE WEAVER: 09/12/[address] [facility] [address] [place] [address]
--- NOTE | 2018-09-12 15:40 | NUR ---
I have reviewed this patient and I concur with the Shift Assessment completed by the Licensed Practical Nurse today this shift.
[2018-09-12 17:45] VITALS: BP 132/60
--- NOTE | 2018-09-12 19:00 | NUR ---
REPORT RECEIVED AND CARE OF PT ASSUMED. PT LYING IN SUPINE POSITION VISITING WITH FAMILY MEMBERS. IV IN LEFT FA PATENT WITH 1/2 NS INFUSING AT 50 ML / HR. LEFT LEG IMMOBILIZER IN PLACE. WILL MONITOR FOR NEEDS.
[2018-09-12 20:00] VITALS: BP 136/56
--- NOTE | 2018-09-12 20:51 | NUR ---
HS MEDICATIONS GIVEN TO INCLUDE OXY 10 PO FOR PAIN, PER REQUEST. FSBS 277 THIS CHECK REQUIRING COVERAGE WITH 10 UNITS OF REGULAR INSULIN. WILL MONITOR FOR NEEDS.
--- NOTE | 2018-09-12 21:00 | NUR ---
ASSISTED PT UP TO BSC TO VOID. PT PIVOTED WELL ON RIGHT FOOT WITH NO WT BEARING ON LEFT.
--- NOTE | 2018-09-12 21:42 | NUR ---
HS SNACK GIVEN: MARTHA CRACKERS AND PEANUT BUTTER.
[2018-09-13] VITALS: BP 130/67
--- NOTE | 2018-09-13 01:07 | NUR ---
ASSISTED PT UP TO USE BSC FOR VOID AND LARGE BM. POSITIONED BACK IN BED FOR COMFORT. PT PIVOTING ON RIGHT FOOT WELL TO GET TO BSC.
[2018-09-13 04:00] VITALS: BP 147/62
[2018-09-13 05:08] LABS: BASOPHILS 0.3 % (0-2); EOSINOPHILS 1.1 % (0-7); HEMATOCRIT 36.3 % (36.0-48.0); HEMOGLOBIN 11.7 g/dL (12-16); IMMATURE GRANULOCYTES 0.2 % (0-5); MCH 26.7 pg (26.0-34.0); MCHC 32.2 g/dL (31.0-37.0); MCV 82.7 fL (80.0-100.0); MONOCYTES 8.7 % (2-11); NEUTROPHILS 73.7 % (40-80); PLATELET COUNT 173 10x3/uL (130-400); RBC 4.39 10x6/uL (4.00-5.40); RDW 14.5 % (11.5-14.5); WBC 11.7 10x3/uL (4.8-10.8)
[2018-09-13 05:15] LABS: ANION GAP 11.9 mmol/L (8-16); CALCIUM 8.2 mg/dL (8.5-10.1); CARBON DIOXIDE 28.2 mmol/L (21.0-32.0); POTASSIUM - SERUM 3.1 mmol/L (3.5-5.1)
--- NOTE | 2018-09-13 06:20 | NUR ---
POTASSIUM LEVEL 3.1 WITH AM LABS REQUIRING COVERAGE WITH 40 MEQ PO POTASSIUM PER THE ELECTROLYTE PROTOCOL. WILL RE-CHECK LEVEL IN 4 HOURS.
--- NOTE | 2018-09-13 08:00 | NUR ---
PT AAOX4 ON THE BEDSIDE COMMODE AT THIS TIME NO SIGNS OF DISTRESS NOTED, CL IN REACH WLL CONTINUE TO MONITOR
[2018-09-13 09:14] VITALS: BP 111/66
[2018-09-13 12:51] VITALS: BP 142/75
[2018-09-13 16:52] VITALS: BP 130/66
--- NOTE | 2018-09-13 19:00 | NUR ---
REPORT RECEIVED AND CARE OF PT ASSUMED. PT LYING IN HIGH MORAES'S POSITION WORKING ON HER COMPUTER. IV TO RIGHT FA PATENT WITH 1/2 NS INFUSING AT 50 ML / HR. WILL MONITOR FOR NEEDS.
[2018-09-13 19:08] LABS: APPEARANCE CLEAR (CLEAR); BILIRUBIN NEGATIVE (NEGATIVE); COLOR STRAW (YELLOW); GLUCOSE 250 mg/dL (NEGATIVE); KETONE NEGATIVE (NEGATIVE); NITRITE NEGATIVE (NEGATIVE); PROTEIN NEGATIVE (NEGATIVE); UROBILINOGEN NORMAL (NORMAL)
[2018-09-13 20:00] VITALS: BP 110/57
--- NOTE | 2018-09-13 20:52 | NUR ---
HS MEDICATIONS GIVEN TO INCLDUE 16 UNITS OF REGULAR INSULIN FOR FSBS 369, PER SLIDING SCLAE. PT DENIES NEED FOR PAIN MEDICATION AT THIS TIME.
--- NOTE | 2018-09-13 21:00 | NUR ---
GAVE HS SNACK: MARTHA CRACKERS AND PEANUT BUTTER.
[2018-09-14 04:00] VITALS: BP 141/55
--- NOTE | 2018-09-14 05:03 | NUR ---
GAVE OXY 10 MG PO PER PT REQUEST FOR PAIN AT LEVEL 5/10. WILL MONITOR FOR EFFECTIVENESS.
--- NOTE | 2018-09-14 05:21 | NUR ---
PT GETTING UP TO BEDSIDE COMMODE ON HER OWN ALL NIGHT...PIVOTING ON RIGHT LEG. SHE IS LOOKING FORWARD TO GOING HOME TODAY.
[2018-09-14 06:07] LABS: CALCIUM 8.2 mg/dL (8.5-10.1); CARBON DIOXIDE 30.3 mmol/L (21.0-32.0); CHLORIDE - SERUM 102 mmol/L (98-107); CREATININE - SERUM 0.8 mg/dL (0.6-1.3); SODIUM 139 mmol/L (136-145); UREA NITROGEN 13 mg/dL (7-18); eGFR NON AFRICAN AMERICAN 77 mL/min (90-120)
[2018-09-14 06:08] LABS: CALC OSMOLALITY 284 mosm/kg (275-300); GLUCOSE 232 mg/dL (74-106); POTASSIUM - SERUM 3.8 mmol/L (3.5-5.1)
[2018-09-14 06:21] LABS: BASOPHILS 0.3 % (0-2); EOSINOPHILS 1.7 % (0-7); HEMATOCRIT 36.1 % (36.0-48.0); HEMOGLOBIN 11.7 g/dL (12-16); IMMATURE GRANULOCYTES 0.2 % (0-5); LYMPHOCYTES 21.2 % (15-50); MCH 26.8 pg (26.0-34.0); MCHC 32.4 g/dL (31.0-37.0); MCV 82.8 fL (80.0-100.0); MONOCYTES 9.7 % (2-11); NEUTROPHILS 66.9 % (40-80); PLATELET COUNT 149 10x3/uL (130-400); RBC 4.36 10x6/uL (4.00-5.40); RDW 14.6 % (11.5-14.5); WBC 11.2 10x3/uL (4.8-10.8)
--- NOTE | 2018-09-14 07:30 | NUR ---
PT RESTING IN BED, EYES OPEN. NO C/O PAIN. NO S/S OF ACUTE DISTRESS NOTED. POD #2 LEFT ANKLE HARDWARE REMOVAL, DRESSING TO LEFT LOWER LEG C/D/I. IV TO RIGHT FOREARM, 1/2 NS @ 50ML/HR. SITE PATENT WITHOUT REDNESS OR SWELLING. PT ACHS. SCD TO RIGHT LEG. PT DENIES ANYTHING FURTHER AT THIS TIME. CALL LIGHT IN REACH. WILL CONTINUE TO MONITOR.
--- NOTE | 2018-09-14 07:35 | NUR ---
PT RESTING IN BED, EYES OPEN. NO C/O PAIN. NO S/S OF ACUTE DISTRESS NOTED. PT BEDFAST, TURN Q2 HOURS. BED ALARM ON AND WORKING. REDNESS TO RIGHT AND LEFT BUTTOCKS. ON ELECTROLYTE PROTOCOL. MEDS CRUSHED IN PUDDING. ON 2L O2, NC. NO IV SITE. PT DENIES ANYTHING FURTHER AT THIS TIME. CALL LIGHT IN REACH. WILL CONTINUE TO MONITOR.
[2018-09-14 09:06] VITALS: BP 132/75
[2018-09-14] MEDS ORDERED: OXYCODONE HCL5 M1 PO (09:17)
[2018-09-14] MEDS ORDERED: ELIQUIS2.5 MG PO (09:18)
--- NOTE | 2018-09-14 10:32 | MORECARE ---
CASE MANAGEMENT DISCHARGE SUMMARY PATIENT: ISABELA ADAMS UNIT: [id number] ADM DATE: 09/11/18 AGE: 62 : 55 SEX: F ROOM/BED: D.2230 AUTHOR: SUE CANALES PHYSICIAN: REFERRING PHYSICIAN: CHRIST BAPTISTE DO DATE OF SERVICE: 09/14/18 Discharge Plan Patient Name: ISABELA ADAMS Facility: [facility]:[place] : 1955 Planned Disposition: Home Hlth Svc w Plan Readm Anticipated Discharge Date: 09/14/18 Discharge Date: Expected LOS: 3 Initial Reviewer: [email or web address] Initial Review Date: 09/12/2018 Generated: 09/14/18 11:32 am DCPIA - Discharge Planning Initial Assessment Updated by LAURENCE: Lorraine Garcia on 09/14/18 10:30 am * Is the patient Alert and Oriented? Yes * How many steps to enter\exit or inside your home? 0/0 * PCP Dr. Scott * Pharmacy [facility] * Preadmission Environment Home Alone * ADLs Partial Dependent * Partial ADLs (Assistance needed) Ambulation * Equipment Bedside Commode Other Walker Wheelchair * Other Equipment Rollator * List name and contact numbers for known caregivers / representatives who currently or will assist patient after discharge: Rosario - DTR - [phone] * Verbal permission to speak to the caregivers and representatives has been obtained from the patient. Yes * Community resources currently utilized Home Health * Please name any agencies selected above. [place] [facility] * Additional services required to return to the preadmission environment? No * Can the patient safely return to the preadmission environment? Yes * Has this patient been hospitalized within the prior 30 days at any hospital? No External Providers External Provider: [facility] Next Contact Date: Service Request Date: Service Type: Resolution: Reviewer: Comments: Coverage Notice Reviewer: [email or web address] Cain Garcia Notice Issued Date-Time: 09/14/2018 9:54 Notice Type: IM Discharge Notice Notice Delivered To: Patient Relationship to Patient: Self Car Wash Supervisor Name: Delivery Method: HAND - Hand Delivered Jada Days: Prior Verbal Notification: Recipient Understood Notice: Yes Recipient Signature: Yes Med Rec Note Co-signed by Attending: Coverage Notice Comment: IMM explained, signed, given, copy placed in MR Reviewer: [email or web address] Cain Lorraine Garcia Notice Issued Date-Time: 09/14/2018 9:59 Notice Type: Patient Choice Letter Notice Delivered To: Patient Relationship to Patient: Self Car Wash Supervisor Name: Delivery Method: HAND - Hand Delivered Jada Days: Prior Verbal Notification: Recipient Understood Notice: Yes Recipient Signature: Yes Med Rec Note Co-signed by Attending: Coverage Notice Comment: [facility] for [place] Patient Name: ISABELA ADAMS Page 41101 at 1032 All edits/amendments must be made on the electronic document DICTATION DATE: 09/14/18 1031 HEALTH RESEARCHER: VIKAS 09/14/18 1031 RPT#: [id number] DC DATE: STATUS: ADM IN [facility] [address] [place] [address] END OF REPORT
--- NOTE | 2018-09-14 10:40 | MORECARE ---
CASE MANAGEMENT DISCHARGE SUMMARY PATIENT: ISABELA ADAMS UNIT: [id number] ADM DATE: 09/11/18 AGE: 62 : 55 SEX: F ROOM/BED: D.2230 AUTHOR: SUE CANALES PHYSICIAN: REFERRING PHYSICIAN: CHRIST BAPTISTE DO DATE OF SERVICE: 09/14/18 Discharge Plan Patient Name: ISABELA ADAMS Facility: [facility]:[place] : 1955 Planned Disposition: Home Hlth Svc w Plan Readm Anticipated Discharge Date: 09/14/18 Discharge Date: Expected LOS: 3 Initial Reviewer: [email or web address] Initial Review Date: 09/12/2018 Generated: 09/14/18 11:40 am Comments DCP- Discharge Planning Updated by [email or web address]: Lorraine Garcia on 09/14/18 9:[address] Patient Name: ISABELA ADAMS Admission Status: Elective Accout number: [id number] Admission Date: 09-11-2018 : 1955 Admission Diagnosis: Attending: CHRIST BAPTISTE Current LOS: 3 Anticipated DC Date: 09-14-2018 Planned Disposition: Home Hlth Svc w Plan Readm Primary Insurance: [facility] MEDICARE SOLUTIONS Discharge Planning Comments: CM met with patient to complete initial dc planning assessment. CM educated patient on the CM role and verbal consent given by patient to complete assessment. Patient lives at home alone. At discharge patient plans to return and feels this is a safe discharge. CM discussed availability of home health, rehab services, and medical equipment. Patient states that she is current with [email or web address] [facility] and would like them resumed on discharge. I called [employer] [facility] and spoke with Jo and she verifies she is current, resumption order written and clinical faxed. She states she would also like Meals on Wheels. I called [facility] and spoke with Adwoa and she will refer her to a machine adjuster leader case trim. Patient informed. CM will continue to follow and will assist as needed with dc plans/needs. Document Review Attorney: Lorraine Garcia DCPIA - Discharge Planning Initial Assessment Updated by [id number]: Lorraine Garcia on 09/14/18 10:30 am * Is the patient Alert and Oriented? Yes * How many steps to enter\exit or inside your home? 0/0 * PCP Dr. Scott * Pharmacy [facility] [address] * Preadmission Environment Home Alone * ADLs Partial Dependent * Partial ADLs (Assistance needed) Ambulation * Equipment Bedside Commode Other Walker Wheelchair * Other Equipment Rollator * List name and contact numbers for known caregivers / representatives who currently or will assist patient after discharge: Rosario - DTR - [phone] * Verbal permission to speak to the caregivers and representatives has been obtained from the patient. Yes * Community resources currently utilized Home Health * Please name any agencies selected above. [place] [facility] * Additional services required to return to the preadmission environment? No * Can the patient safely return to the preadmission environment? Yes * Has this patient been hospitalized within the prior 30 days at any hospital? No Coverage Notice Reviewer: [email or web address] Garcia Notice Issued Date-Time: 09/14/2018 9:54 Notice Type: IM Discharge Notice Notice Delivered To: Patient Relationship to Patient: Self Spinning Machine Tender Name: Delivery Method: HAND - Hand Delivered Jada Days: Prior Verbal Notification: Recipient Understood Notice: Yes Recipient Signature: Yes Med Rec Note Co-signed by Attending: Coverage Notice Comment: IMM explained, signed, given, copy placed in MR Reviewer: [id number] Cain Garcia Notice Issued Date-Time: 09/14/2018 9:59 Notice Type: Patient Choice Letter Notice Delivered To: Patient Relationship to Patient: Self Spinning Machine Tender Name: Delivery Method: HAND - Hand Delivered Jada Days: Prior Verbal Notification: Recipient Understood Notice: Yes Recipient Signature: Yes Med Rec Note Co-signed by Attending: Coverage Notice Comment: ANDRAE for [facility] Last DP export: 09/14/18 9:32 a Patient Name: ISABELA ADAMS Page [id number] at 1040 All edits/amendments must be made on the electronic document DICTATION DATE: 09/14/18 1040 MEDICAL AFFAIRS SPECIALIST: VIKAS 09/14/18 1040 RPT#: [id number] DC DATE: STATUS: ADM IN [facility] [address] [place] [address] END OF REPORT
[2018-09-14 13:44] VITALS: BP 112/50
[2018-09-14 17:13] VITALS: BP 128/66
--- NOTE | 2018-09-14 18:12 | NUR ---
PT DISCHARGED HOME VIA WHEELCHAIR WITH FAMILY, ACCOMPANIED BY STAFF. WENT OVER DISCHARGE INSTRUCTIONS WITH PT, VERBALIZED UNDERSTANDING. DISCONTINUED IV, CATHETER TIP INTACT. PT DENIES ANYTHING FURTHER.
--- NOTE | 2018-09-16 07:34 | MORECARE ---
CASE MANAGEMENT DISCHARGE SUMMARY PATIENT: ISABELA ADAMS UNIT: [id number] ADM DATE: 09/11/18 AGE: 62 : 55 SEX: F ROOM/BED: D.2230 AUTHOR: SUE CANALES PHYSICIAN: REFERRING PHYSICIAN: CHRIST BAPTISTE DO DATE OF SERVICE: 09/16/18 Discharge Plan Patient Name: ISABELA ADAMS Facility: [facility]:[place] : 1955 Planned Disposition: Home Hlth Svc w Plan Readm Anticipated Discharge Date: 09/14/18 Discharge Date: 09/14/2018 Expected LOS: 3 Initial Reviewer: [id number] Initial Review Date: 09/12/2018 Generated: 09/16/18 8:34 am DCP- Discharge Planning Updated by [email or web address]: Lorraine Garcia on 09/14/18 9:[address] Patient Name: ISABELA ADAMS Admission Status: Elective Accout number: [id number] Admission Date: 09-11-2018 : 1955 Admission Diagnosis: Attending: CHRIST BAPTISTE Current LOS: 3 Anticipated DC Date: 09-14-2018 Planned Disposition: Home Hlth Svc w Plan Readm Primary Insurance: [facility] MEDICARE SOLUTIONS Discharge Planning Comments: CM met with patient to complete initial dc planning assessment. CM educated patient on the CM role and verbal consent given by patient to complete assessment. Patient lives at home alone. At discharge patient plans to return and feels this is a safe discharge. CM discussed availability of home health, rehab services, and medical equipment. Patient states that she is current with [email or web address] and would like them resumed on discharge. I called [employer] [facility] and spoke with Jo and she verifies she is current, resumption order written and clinical faxed. She states she would also like Meals on Wheels. I called [facility] and spoke with Adwoa and she will refer her to a lead case manager. Patient informed. CM will continue to follow and will assist as needed with dc plans/needs. Digital Marketing Program Manager: Lorraine Garcia DCPIA - Discharge Planning Initial Assessment Updated by [email or web address]: Lorraine Garcia on 09/14/18 10:30 am * Is the patient Alert and Oriented? Yes * How many steps to enter\exit or inside your home? 0/0 * PCP Dr. Scott * Pharmacy [facility] [address] * Preadmission Environment Home Alone * ADLs Partial Dependent * Partial ADLs (Assistance needed) Ambulation * Equipment Bedside Commode Other Walker Wheelchair * Other Equipment Rollator * List name and contact numbers for known caregivers / representatives who currently or will assist patient after discharge: Rosario - DTR - [phone] * Verbal permission to speak to the caregivers and representatives has been obtained from the patient. Yes * Community resources currently utilized Home Health * Please name any agencies selected above. [facility] * Additional services required to return to the preadmission environment? No * Can the patient safely return to the preadmission environment? Yes * Has this patient been hospitalized within the prior 30 days at any hospital? No Coverage Notice Reviewer: [id number] Garcia Notice Issued Date-Time: 09/14/2018 9:54 Notice Type: IM Discharge Notice Notice Delivered To: Patient Relationship to Patient: Self Rivet Flunky Name: Delivery Method: HAND - Hand Delivered Jada Days: Prior Verbal Notification: Recipient Understood Notice: Yes Recipient Signature: Yes Med Rec Note Co-signed by Attending: Coverage Notice Comment: IMM explained, signed, given, copy placed in MR Reviewer: [id number] Cain Garcia Notice Issued Date-Time: 09/14/2018 9:59 Notice Type: Patient Choice Letter Notice Delivered To: Patient Relationship to Patient: Self Rivet Flunky Name: Delivery Method: HAND - Hand Delivered Jada Days: Prior Verbal Notification: Recipient Understood Notice: Yes Recipient Signature: Yes Med Rec Note Co-signed by Attending: Coverage Notice Comment: ANDRAE for [facility] Last DP export: 09/14/18 9:40 a Patient Name: ISABELA ADAMS Page [id number] at 0734 All edits/amendments must be made on the electronic document DICTATION DATE: 09/16/18733 SENIOR VISUAL DESIGNER: VIKAS 09/16/18733 RPT#: [id number] DC DATE:09/14/18 STATUS: DIS IN [facility] [address] [place] [address] END OF REPORT
== END 2018-09-14 18:13 | disposition home or self-care (01) ==
LOC: D.OPS 10:04 → D.MS 18:41 → D.OPS 18:42 → OBSVTIME 18:42 → D.OPS 18:42 → D.MS 18:42
PROVIDERS: Anesthesiology; Internal Medicine Nephrology; ADMIT Orthopaedic Surgery; ATTEND Orthopaedic Surgery
DX: T84.84XA Pain due to internal orthopedic prosthetic devices, implants and grafts, initial encounter (principal); G89.18 Other acute postprocedural pain; E87.6 Hypokalemia; E11.9 Type 2 diabetes mellitus without complications; I11.0 Hypertensive heart disease with heart failure; I50.9 Heart failure, unspecified

== ENCOUNTER → 2018-11-25 14:28 | Outpatient (CLI) | payer MEDICARE ==
[~2018-11-25 14:28] MED LIST changes: +ALBUTEROL SULF8.5 GM INH; +ELIQUIS2.5 MG PO; +FLUTICASONE PRO16 GM NASAL; +OXYCODONE HCL5 M1 PO; +PROTONIX40 MG PO
== END | disposition home or self-care (01) ==
LOC: D.CT 14:28
PROVIDERS: ATTEND Orthopaedic Surgery
DX: S82.52XP Displaced fracture of medial malleolus of left tibia, subsequent encounter for closed fracture with malunion (principal)

== ENCOUNTER 2018-11-30 09:42 | Inpatient (IN) | payer MEDICARE ==
[2018-11-30] VITALS (8 sets, daily range): BP systolic 121–156; BP diastolic 60–79; BMI 44.7
[~2018-11-30] VITALS: Ht 160 cm; Wt 114.3 kg
[~2018-11-30 09:42] MED LIST changes: -ALBUTEROL SULF8.5 GM INH; -FLUTICASONE PRO16 GM NASAL; -PROTONIX40 MG PO
[2018-11-30] MEDS ORDERED: ALBUTEROL SULF8.5 GM INH (09:55)
[2018-11-30 10:34] LABS: APTT 30.5 SECONDS (22.8-39.4); PROTIME 12.7 SECONDS (11.6-15.0)
[2018-11-30 10:39] LABS: D-DIMER-QUANTITATIVE 2.54 ug/mLFEU (0.20-0.54)
[2018-11-30 10:44] LABS: BASOPHILS 0.5 % (0-2); EOSINOPHILS 1.5 % (0-7); HEMATOCRIT 36.6 % (36.0-48.0); HEMOGLOBIN 11.9 g/dL (12-16); IMMATURE GRANULOCYTES 0.2 % (0-5); LYMPHOCYTES 21.9 % (15-50); MCH 26.9 pg (26.0-34.0); MCHC 32.5 g/dL (31.0-37.0); MCV 82.6 fL (80.0-100.0); MEAN PLATELET VOLUME 11.5 fL (7.4-10.4); MONOCYTES 9.5 % (2-11); NEUTROPHILS 66.4 % (40-80); RBC 4.43 10x6/uL (4.00-5.40); RDW 15.7 % (11.5-14.5); WBC 12.6 10x3/uL (4.8-10.8)
[2018-11-30 10:48] LABS: ALBUMIN 2.8 g/dL (3.4-5.0); ALKALINE PHOSPHATASE 178 U/L (46-116); ALT (SGPT) 63 U/L (10-68); BILIRUBIN - TOTAL 0.33 mg/dL (0.2-1.3); CALC OSMOLALITY 280 mosm/kg (275-300); CALCIUM 8.5 mg/dL (8.5-10.1); CARBON DIOXIDE 28.9 mmol/L (21.0-32.0); CHLORIDE - SERUM 103 mmol/L (98-107); CREATININE - SERUM 0.8 mg/dL (0.6-1.3); POTASSIUM - SERUM 3.8 mmol/L (3.5-5.1); PROTEIN - SERUM 7.6 g/dL (6.4-8.2); SODIUM 139 mmol/L (136-145); UREA NITROGEN 10 mg/dL (7-18); eGFR NON AFRICAN AMERICAN 77 mL/min (90-120)
[2018-11-30 10:49] LABS: PLATELET COUNT 200 10x3/uL (130-400)
[2018-11-30 10:50] LABS: GLUCOSE 169 mg/dL (74-106)
[2018-11-30 11:05] LABS: CKMB 0.6 U/L (0.0-3.6); CREATINE KINASE 73 UL (21-215); PRO BNP 254 pg/mL (0-125)
[2018-11-30 11:13] LABS: TROPONIN-I < 0.017 ng/mL (0.000-0.060)
--- NOTE | 2018-11-30 20:00 | NUR ---
ALERT RESTING IN BED C/O HEADACHE REQUESTING TYLENOL, STATES LEFT FOOT PAIN NOT BAD AT THIS TIME, EDEMA NOTED TO LEFT FOOT AND ANKLE, SEE ASSESSMENT, CALL LIGHT IN REACH
--- NOTE | 2018-11-30 21:30 | NUR ---
IV INFILTRATED DC'D, RESITED TO RIGHT AC AREA X 2 ATTEMPTS 20G, TOLERATED WELL
[2018-12-01 01:44] VITALS: BP 120/80
[2018-12-01 04:38] VITALS: BP 120/74
[2018-12-01 04:59] LABS: BASOPHILS 0.3 % (0-2); EOSINOPHILS 1.8 % (0-7); IMMATURE GRANULOCYTES 0.6 % (0-5); LYMPHOCYTES 19.1 % (15-50); MCH 27.5 pg (26.0-34.0); MCHC 33.3 g/dL (31.0-37.0); MCV 82.4 fL (80.0-100.0); MONOCYTES 8.3 % (2-11); NEUTROPHILS 69.9 % (40-80); PLATELET COUNT 178 10x3/uL (130-400); RBC 4.37 10x6/uL (4.00-5.40); WBC 11.7 10x3/uL (4.8-10.8)
[2018-12-01 05:33] LABS: CALCIUM 8.1 mg/dL (8.5-10.1); CARBON DIOXIDE 28.3 mmol/L (21.0-32.0); MAGNESIUM - SERUM 1.6 mg/dL (1.8-2.4); PHOSPHOROUS 4.9 mg/dL (2.5-4.9); POTASSIUM - SERUM 4.3 mmol/L (3.5-5.1)
[2018-12-01 05:37] LABS: CREATININE - SERUM 1.1 mg/dL (0.6-1.3)
[2018-12-01 06:36] LABS: CREATINE KINASE 105 UL (21-215)
[2018-12-01 06:37] LABS: TROPONIN-I < 0.017 ng/mL (0.000-0.060)
--- NOTE | 2018-12-01 07:15 | NUR ---
REC'D IN BED AWAKE AND ALERT. RESP EVEN AND UNLABORED WITH ON DISTRESS NOTED. CAN EXPRESS NEEDS AND WANTS. NO C/O NOTED OR VOICED. ASSESSMENT COMPLETED. C/L IN REACH AT BEDSIDE.
[2018-12-01 08:24] VITALS: BP 122/77
--- NOTE | 2018-12-01 11:25 | NUR ---
C/O RIGHT ANKLE PAIN RATING 8/10 ON PAIN SCALE WAS MEDICATED WITH OXY PER ORDERS. C/L IN REACH AT BEDSIDE
[2018-12-01 12:19] VITALS: BP 122/69
[2018-12-01 12:54] LABS: CREATINE KINASE 111 UL (21-215); TROPONIN-I < 0.017 ng/mL (0.000-0.060)
[2018-12-01 17:03] VITALS: BP 124/56
--- NOTE | 2018-12-01 20:00 | NUR ---
ALERT RESTING IN BED VISTING WITH FAMILY, DENIES PAIN OR CONCERNS, SEE SHIFT ASSESSMENT, CALL LIGHT IN REACH
[2018-12-01 21:20] VITALS: BP 109/68
[2018-12-02 00:33] LABS: CKMB 1.3 U/L (0.0-3.6); CREATINE KINASE 155 UL (21-215)
[2018-12-02 00:37] LABS: TROPONIN-I < 0.017 ng/mL (0.000-0.060)
[2018-12-02 01:11] VITALS: BP 134/33
[2018-12-02 05:18] VITALS: BP 150/54
[2018-12-02 07:21] LABS: BASOPHILS 0.4 % (0-2); EOSINOPHILS 2.5 % (0-7); HEMATOCRIT 32.7 % (36.0-48.0); HEMOGLOBIN 10.7 g/dL (12-16); IMMATURE GRANULOCYTES 0.2 % (0-5); LYMPHOCYTES 25.3 % (15-50); MCH 26.9 pg (26.0-34.0); MCHC 32.7 g/dL (31.0-37.0); MCV 82.2 fL (80.0-100.0); MEAN PLATELET VOLUME 11.9 fL (7.4-10.4); MONOCYTES 9.9 % (2-11); NEUTROPHILS 61.7 % (40-80); PLATELET COUNT 197 10x3/uL (130-400); RBC 3.98 10x6/uL (4.00-5.40); RDW 16.1 % (11.5-14.5); WBC 11.3 10x3/uL (4.8-10.8)
[2018-12-02 07:42] LABS: ANION GAP 8.6 mmol/L (8-16); CALCIUM 7.7 mg/dL (8.5-10.1); CARBON DIOXIDE 29.4 mmol/L (21.0-32.0); CREATININE - SERUM 1.2 mg/dL (0.6-1.3); MAGNESIUM - SERUM 1.6 mg/dL (1.8-2.4); PHOSPHOROUS 3.9 mg/dL (2.5-4.9)
[2018-12-02 09:22] VITALS: BP 132/71
[2018-12-02 11:14] LABS: APPEARANCE CLEAR (CLEAR); BILIRUBIN NEGATIVE (NEGATIVE); COLOR YELLOW (YELLOW); GLUCOSE NEGATIVE (NEGATIVE); KETONE NEGATIVE (NEGATIVE); NITRITE NEGATIVE (NEGATIVE); PROTEIN NEGATIVE (NEGATIVE); SPECIFIC GRAVITY 1.015 (1.005-1.020); UROBILINOGEN NORMAL (NORMAL)
[2018-12-02 14:12] VITALS: BP 133/70
--- NOTE | 2018-12-02 17:49 | NUR ---
I have reviewed this patient and I concur with the Shift Assessment completed by the Licensed Practical Nurse today this shift.
--- NOTE | 2018-12-02 18:45 | NUR ---
C/O LEFT ANKLE PAIN RATING 5/10 ON PAIN SCALE MEDICATED WITH PRN MEDS. C/L IN REACH AT BEDSIDE.
[2018-12-02 20:55] VITALS: BP 120/43
[2018-12-03 00:47] VITALS: BP 154/50
--- NOTE | 2018-12-03 03:43 | NUR ---
PATIENT IN BED RESTING ALERT AND ORENTED ABLE TO VOICE NEEDS AND WANTS TO STAFF. WATER AND CALL LIGHT IN REACH. IV TO RIGHT FR PATIEN. NO NEEDS NOTED OR STATED.
[2018-12-03 05:18] VITALS: BP 99/43
[2018-12-03 06:58] LABS: BASOPHILS 0.5 % (0-2); EOSINOPHILS 2.2 % (0-7); HEMATOCRIT 34.8 % (36.0-48.0); HEMOGLOBIN 11.2 g/dL (12-16); IMMATURE GRANULOCYTES 0.2 % (0-5); LYMPHOCYTES 20.8 % (15-50); MCH 26.7 pg (26.0-34.0); MCHC 32.2 g/dL (31.0-37.0); MCV 83.1 fL (80.0-100.0); MEAN PLATELET VOLUME 11.8 fL (7.4-10.4); MONOCYTES 7.9 % (2-11); NEUTROPHILS 68.4 % (40-80); PLATELET COUNT 236 10x3/uL (130-400); RBC 4.19 10x6/uL (4.00-5.40); RDW 16.3 % (11.5-14.5); WBC 10.9 10x3/uL (4.8-10.8)
[2018-12-03 07:04] LABS: ANION GAP 8.8 mmol/L (8-16); CALCIUM 8.5 mg/dL (8.5-10.1); CARBON DIOXIDE 31.5 mmol/L (21.0-32.0); MAGNESIUM - SERUM 1.7 mg/dL (1.8-2.4); PHOSPHOROUS 2.6 mg/dL (2.5-4.9); POTASSIUM - SERUM 4.3 mmol/L (3.5-5.1)
--- NOTE | 2018-12-03 07:13 | NUR ---
IV RESTARTED TO LEFT FR WITH ATEMPTS X2 20 XOCHITL
[2018-12-03 08:12] VITALS: BP 133/63
--- NOTE | 2018-12-03 08:35 | NUR ---
WAS MEDICATED WITH OXY PER ORDERS FOR C/O PAIN RATING 5/10 ON PAIN SCALE. C/L IN REACH AT BEDSIDE.
[2018-12-03 12:49] VITALS: BP 138/66
[2018-12-03 14:35] VITALS: Ht 160 cm; Wt 114.3 kg
[2018-12-03 16:27] VITALS: BP 111/55
--- NOTE | 2018-12-03 16:55 | MORECARE ---
CASE MANAGEMENT DISCHARGE SUMMARY PATIENT: ISABELA ADAMS UNIT: [id number] ADM DATE: 11/30/18 AGE: 63 : 55 SEX: F ROOM/BED: D.[facility] AUTHOR: SUE CANALES PHYSICIAN: REFERRING PHYSICIAN: NICOLETTE ANDERSEN MD DATE OF SERVICE: 12/03/18 Discharge Plan Patient Name: ISABELA ADAMS Facility: [facility]:[place] : 1955 Planned Disposition: Chcf Facility Anticipated Discharge Date: Discharge Date: Expected LOS: Initial Reviewer: [email or web address] Initial Review Date: 12/03/2018 Generated: 12/03/18 5:54 pm DCPIA - Discharge Planning Initial Assessment Updated by [email or web address]: Lorraine Garcia on 12/03/18 4:54 pm * Is the patient Alert and Oriented? Yes * How many steps to enter\exit or inside your home? 0/0 * PCP Dr. Scott * Preadmission Environment Home Alone * ADLs Partial Dependent * Partial ADLs (Assistance needed) Ambulation * Equipment Bedside Commode Glucometer Other Walker Wheelchair * Other Equipment Rollator walker * List name and contact numbers for known caregivers / representatives who currently or will assist patient after discharge: Pilar Staton [facility] - [phone] * Verbal permission to speak to the caregivers and representatives has been obtained from the patient. Yes * Community resources currently utilized Hospice Home Meals on Wheels * Please name any agencies selected above. [facility] * Additional services required to return to the preadmission environment? Yes * Can the patient safely return to the preadmission environment? Yes * Has this patient been hospitalized within the prior 30 days at any hospital? No Coverage Notice Reviewer: [id number] - Lorraine Garcia Notice Issued Date-Time: 12/03/2018 16:50 Notice Type: Patient Choice Letter Notice Delivered To: Patient Relationship to Patient: Self Airplane Cleaner Name: Delivery Method: HAND - Hand Delivered Jada Days: Prior Verbal Notification: Recipient Understood Notice: Yes Recipient Signature: Yes Med Rec Note Co-signed by Attending: Coverage Notice Comment: ANDRAE for [place] Patient Name: ISABELA ADAMS Page [id number] at 1655 All edits/amendments must be made on the electronic document DICTATION DATE: 12/03/181653 BIG DATA HADOOP DEVELOPER: VIKAS 12/03/181653 RPT#: [id number] DC DATE: STATUS: ADM IN [facility] [address] [place] [address] END OF REPORT
--- NOTE | 2018-12-03 17:02 | MORECARE ---
CASE MANAGEMENT DISCHARGE SUMMARY PATIENT: ISABELA ADAMS UNIT: [id number] ADM DATE: 11/30/18 AGE: 63 : 55 SEX: F ROOM/BED: D.2233 AUTHOR: SUE CANALES PHYSICIAN: REFERRING PHYSICIAN: NICOLETTE ANDERSEN MD DATE OF SERVICE: 12/03/18 Discharge Plan Patient Name: ISABELA ADAMS Facility: [facility]:[place] : 1955 Planned Disposition: Correction Facility Anticipated Discharge Date: Discharge Date: Expected LOS: Initial Reviewer: [email or web address] Initial Review Date: 12/03/2018 Generated: 12/03/18 6:02 pm Comments DCP- Discharge Planning Updated by [email or web address]: Lorraine Garcia on 12/03/18 3:[address] Patient Name: ISABELA ADAMS Admission Status: ER Accout number: [id number] Admission Date: 11-30-2018 : 1955 Admission Diagnosis:OTH FRACTURE OF LEFT LOWER LEG, SUBS FOR CLOS FX W HAN Attending: NICOLETTE ANDERSEN Current LOS: 3 Anticipated DC Date: Planned Disposition: Correction Facility Primary Insurance: [facility] MEDICARE SOLUTIONS Discharge Planning Comments: CM met with patient to complete initial dc planning assessment. CM educated patient on the CM role and verbal consent given by patient to complete assessment. Patient lives at home alone. She states she is independent with her care at home, except she no longer drives. States her daughter lives 2 houses down and drives her where she needs to go. CM discussed availability of home health, rehab services, and medical equipment. Patient states at discharge she would like to go to [facility]. She states that she has already checked with her insurance and she still has 20 days for SNF. I will send a referral tomorrow, since admission staff will not be there at this time. I did inform patient she will still need preauthorization from insurance prior to admission to a skilled facility, she voiced understanding. CM will continue to follow and will assist as needed with dc plans/needs. Live Truck Operator: Lorraine Garcia DCPIA - Discharge Planning Initial Assessment Updated by [email or web address]: Lorraine Garcia on 12/03/18 4:54 pm * Is the patient Alert and Oriented? Yes * How many steps to enter\exit or inside your home? 0/0 * PCP Dr. Scott * Preadmission Environment Home Alone * ADLs Partial Dependent * Partial ADLs (Assistance needed) Ambulation * Equipment Bedside Commode Glucometer Other Walker Wheelchair * Other Equipment Rollator walker * List name and contact numbers for known caregivers / representatives who currently or will assist patient after discharge: Pilar Staton [facility] - [phone] * Verbal permission to speak to the caregivers and representatives has been obtained from the patient. Yes * Community resources currently utilized Hospice Home Meals on Wheels * Please name any agencies selected above. [place] [facility] * Additional services required to return to the preadmission environment? Yes * Can the patient safely return to the preadmission environment? Yes * Has this patient been hospitalized within the prior 30 days at any hospital? No Coverage Notice Reviewer: [id number] Cain Garcia Notice Issued Date-Time: 12/03/2018 16:50 Notice Type: Patient Choice Letter Notice Delivered To: Patient Relationship to Patient: Self Patient Financial Specialist Name: Delivery Method: HAND - Hand Delivered Jada Days: Prior Verbal Notification: Recipient Understood Notice: Yes Recipient Signature: Yes Med Rec Note Co-signed by Attending: Coverage Notice Comment: ANDRAE for [facility] Last DP export: 12/03/18 3:55 p Patient Name: ISABELA ADAMS Page [id number] at 1702 All edits/amendments must be made on the electronic document DICTATION DATE: 12/03/181700 VICE PRESIDENT OF HUMAN RESOURCES: VIKAS 12/03/181700 RPT#: [id number] DC DATE: STATUS: ADM IN [facility] [address] [place] [address] END OF REPORT
[2018-12-03 20:00] VITALS: BP 131/61
[2018-12-04] VITALS: BP 141/71
--- NOTE | 2018-12-04 00:29 | NUR ---
PATIENT IN BED RESTING WITH NO NEEDS NOTED OR STATED CALL LIGHT AND WATER IN REACH. iV TO LEFT ARM WITH NS AT 75. SHE IS ALERT AND ORENTED ABLE TO VOICE NEEDS AND WANSTT TO STAFF.
[2018-12-04 04:00] VITALS: BP 132/68
--- NOTE | 2018-12-04 07:00 | NUR ---
RECEIVED REPORT. ZACHARY MARRERO
[2018-12-04 07:25] LABS: BASOPHILS 0.4 % (0-2); IMMATURE GRANULOCYTES 0.3 % (0-5); LYMPHOCYTES 25.4 % (15-50); MCH 26.9 pg (26.0-34.0); MCHC 32.4 g/dL (31.0-37.0); MCV 83.1 fL (80.0-100.0); MEAN PLATELET VOLUME 11.8 fL (7.4-10.4); MONOCYTES 10.9 % (2-11); PLATELET COUNT 230 10x3/uL (130-400); RBC 4.09 10x6/uL (4.00-5.40); RDW 16.5 % (11.5-14.5); WBC 10.2 10x3/uL (4.8-10.8)
[2018-12-04 07:43] LABS: CALCIUM 8.8 mg/dL (8.5-10.1); MAGNESIUM - SERUM 1.7 mg/dL (1.8-2.4)
[2018-12-04 07:46] LABS: PHOSPHOROUS 3.4 mg/dL (2.5-4.9)
[2018-12-04 07:55] VITALS: BP 100/58
[2018-12-04 12:09] VITALS: BP 102/47
--- NOTE | 2018-12-04 12:17 | MORECARE ---
CASE MANAGEMENT DISCHARGE SUMMARY PATIENT: ISABELA ADAMS UNIT: [id number] ADM DATE: 11/30/18 AGE: 63 : 55 SEX: F ROOM/BED: D.2233 AUTHOR: PARKER,DOC PHYSICIAN: REFERRING PHYSICIAN: NICOLETTE ANDERSEN MD DATE OF SERVICE: 12/04/18 Discharge Plan Patient Name: ISABELA ADAMS Facility: [facility]:[place] : 1955 Planned Disposition: Chcf Facility Anticipated Discharge Date: Discharge Date: Expected LOS: Initial Reviewer: [email or web address] Initial Review Date: 12/03/2018 Generated: 12/04/18 1:17 pm Comments DCP- Discharge Planning Updated by [id number]: Lorraine Garcia on 12/04/18 11:[address] I called Angela at [facility] and clinical faxed. Awaiting a new PT eval and OT eval to send to [facility]. CM will continue to follow and assist with discharge planning/needs. DCP- Discharge Planning Updated by [id number]: Lorraine Garcia on 12/03/18 3:[address] Patient Name: ISABELA ADAMS Admission Status: ER Accout number: [id number] Admission Date: 11-30-2018 : 1955 Admission Diagnosis:OTH FRACTURE OF LEFT LOWER LEG, SUBS FOR CLOS FX W HAN Attending: NICOLETTE ANDERSEN Current LOS: 3 Anticipated DC Date: Planned Disposition: Chcf Facility Primary Insurance: [facility] MEDICARE SOLUTIONS Discharge Planning Comments: CM met with patient to complete initial dc planning assessment. CM educated patient on the CM role and verbal consent given by patient to complete assessment. Patient lives at home alone. She states she is independent with her care at home, except she no longer drives. States her daughter lives 2 houses down and drives her where she needs to go. CM discussed availability of home health, rehab services, and medical equipment. Patient states at discharge she would like to go to [facility]. She states that she has already checked with her insurance and she still has 20 days for SNF. I will send a referral tomorrow, since admission staff will not be there at this time. I did inform patient she will still need preauthorization from insurance prior to admission to a skilled facility, she voiced understanding. CM will continue to follow and will assist as needed with dc plans/needs. Historic Clothing And Costume Maker: Lorraine Greerrosamaria DCPIA - Discharge Planning Initial Assessment Updated by [id number]: Lorraine Garcai on 12/03/18 4:54 pm * Is the patient Alert and Oriented? Yes * How many steps to enter\exit or inside your home? 0/0 * PCP Dr. Scott * Preadmission Environment Home Alone * ADLs Partial Dependent * Partial ADLs (Assistance needed) Ambulation * Equipment Bedside Commode Glucometer Other Walker Wheelchair * Other Equipment Rollator walker * List name and contact numbers for known caregivers / representatives who currently or will assist patient after discharge: Pilar Gersolitario [facility] - [phone] * Verbal permission to speak to the caregivers and representatives has been obtained from the patient. Yes * Community resources currently utilized Hospice Home Meals on Wheels * Please name any agencies selected above. [place] [facility] * Additional services required to return to the preadmission environment? Yes * Can the patient safely return to the preadmission environment? Yes * Has this patient been hospitalized within the prior 30 days at any hospital? No External Providers External Provider: [facility] Next Contact Date: Service Request Date: Service Type: Resolution: Reviewer: Comments: Coverage Notice Reviewer: [id number] - Lorraine Garcia Notice Issued Date-Time: 12/03/2018 16:50 Notice Type: Patient Choice Letter Notice Delivered To: Patient Relationship to Patient: Self Horn Player Name: Delivery Method: HAND - Hand Delivered Jada Days: Prior Verbal Notification: Recipient Understood Notice: Yes Recipient Signature: Yes Med Rec Note Co-signed by Attending: Coverage Notice Comment: ANDRAE for [facility] Last DP export: 12/03/18 4:02 p Patient Name: ISABELA ADAMS Page [id number] at 1217 All edits/amendments must be made on the electronic document DICTATION DATE: 12/04/18 1217 CURTAIN CLEANER: VIKAS 12/04/18 1217 RPT#: [id number] DC DATE: STATUS: ADM IN [facility] [address] [place] [address] END OF REPORT
--- NOTE | 2018-12-04 13:36 | MORECARE ---
CASE MANAGEMENT DISCHARGE SUMMARY PATIENT: ISABELA ADAMS UNIT: [id number] ADM DATE: 11/30/18 AGE: 63 : 55 SEX: F ROOM/BED: D.2233 AUTHOR: PARKER,DOC PHYSICIAN: REFERRING PHYSICIAN: NICOLETTE ANDERSEN MD DATE OF SERVICE: 12/04/18 Discharge Plan Patient Name: ISABELA ADAMS Facility: [facility]:[place] : 1955 Planned Disposition: [facility] Facility Anticipated Discharge Date: Discharge Date: Expected LOS: Initial Reviewer: [id number] Initial Review Date: 12/03/2018 Generated: 12/04/18 2:36 pm Comments DCP- Discharge Planning Updated by [email or web address]: Lorraine Garcia on 12/04/18 12:[address] OT/PT notes faxed to [facility]. I spoke with Naima, she will call to see if they are in Network. Patient states she has not had her scan yet today. I called radiology and spoke with Adwoa and informed her that Dr. Herndon has ordered it and it says it was cancelled due to being "rejected". Adwoa states she will look into it. CM will continue to follow and assist with discharge planning/needs. DCP- Discharge Planning Updated by [id number]: Lorraine Garcia on 12/04/18 11:[address] I called Angela at [facility] and clinical faxed. Awaiting a new PT eval and OT eval to send to [facility]. CM will continue to follow and assist with discharge planning/needs. DCP- Discharge Planning Updated by [email or web address]: Lorraine Garcia on 12/03/18 3:[address] Patient Name: ISABELA ADAMS Admission Status: ER Accout number: [id number] Admission Date: 11-30-2018 : 1955 Admission Diagnosis:OTH FRACTURE OF LEFT LOWER LEG, SUBS FOR CLOS FX W HAN Attending: NICOLETTE ANDERSEN Current LOS: 3 Anticipated DC Date: Planned Disposition: [facility] Facility Primary Insurance: [facility] MEDICARE SOLUTIONS Discharge Planning Comments: CM met with patient to complete initial dc planning assessment. CM educated patient on the CM role and verbal consent given by patient to complete assessment. Patient lives at home alone. She states she is independent with her care at home, except she no longer drives. States her daughter lives 2 houses down and drives her where she needs to go. CM discussed availability of home health, rehab services, and medical equipment. Patient states at discharge she would like to go to [facility]. She states that she has already checked with her insurance and she still has 20 days for SNF. I will send a referral tomorrow, since admission staff will not be there at this time. I did inform patient she will still need preauthorization from insurance prior to admission to a skilled facility, she voiced understanding. CM will continue to follow and will assist as needed with dc plans/needs. Pilot Control Operator Helper: Lorraine Garcia DCPIA - Discharge Planning Initial Assessment Updated by [email or web address]: Lorraine Garcia on 12/03/18 4:54 pm * Is the patient Alert and Oriented? Yes * How many steps to enter\\exit or inside your home? 0/0 * PCP Dr. Scott * Preadmission Environment Home Alone * ADLs Partial Dependent * Partial ADLs (Assistance needed) Ambulation * Equipment Bedside Commode Glucometer Other Walker Wheelchair * Other Equipment Rollator walker * List name and contact numbers for known caregivers / representatives who currently or will assist patient after discharge: Pilar Staton [facility] - [phone] * Verbal permission to speak to the caregivers and representatives has been obtained from the patient. Yes * Community resources currently utilized [facility] Whe[facility] * Please name any agencies selected above. [facility] * Additional services required to return to the preadmission environment? Yes * Can the patient safely return to the preadmission environment? Yes * Has this patient been hospitalized within the prior 30 days at any hospital? No Coverage Notice Reviewer: [id number] - Lorraine Garcia Notice Issued Date-Time: 12/03/2018 16:50 Notice Type: Patient Choice Letter Notice Delivered To: Patient Relationship to Patient: Self Senior Product Analyst Name: Delivery Method: HAND - Hand Delivered Jada Days: Prior Verbal Notification: Recipient Understood Notice: Yes Recipient Signature: Yes Med Rec Note Co-signed by Attending: Coverage Notice Comment: ANDRAE for [facility] Last DP export: 12/04/18 11:17 a Patient Name: ISABELA ADAMS Page [id number] at 1336 All edits/amendments must be made on the electronic document DICTATION DATE: 12/04/181335 BOARD HANDLER: VIKAS 12/04/181335 RPT#: [id number] DC DATE: STATUS: ADM IN [facility] [address] [place] [address] END OF REPORT
[2018-12-04 15:30] VITALS: BP 111/66
--- NOTE | 2018-12-04 15:34 | EC ---
PATIENT:ISABELA ADAMS DATE OF SERVICE: 11/30/18 SEX: F MEDICAL RECORD: [id number] DATE OF : 55 LOCATION:D.MS [facility] AGE OF PATIENT: 63 ADMISSION DATE: 11/30/18 REFERRING PHYSICIAN: INTERPRETING PHYSICIAN: MARIBEL RIVAS MD ECHOCARDIOGRAM REPORT ECHO CHARGES 4 ECHO COMPLETE Date: 12/01/18 CLINICAL DIAGNOSIS: CHEST PAIN, CROWLEY CP,CROWLEY ECHOCARDIOGRAPHIC MEASUREMENTS (adult normal given) AC root (d.<3.7cm) 3.1 cm LV Septum d (<1.2 cm> 1.5 cm Valve Excursion 1.7 cm LV Septum (systole) 2.0 cm Left Atria (s.<4.0cm> 3.4 cm LVPW d(<1.2cm) 1.3 cm RV (d.<2.3cm) 2.2 cm LVPW (sytole) 1.7 cm LV diastole(<5.6CM) 4.7 cm MV E-F(>70mm/sec) cm LV systole 2.5 cm LVOT Diameter 1.8 cm MV exc.(>10mm) cm Est.ejection fraction (50-75%) % DOPPLER: LVIT cm/sec A 87 cm/sec E 72 cm/sec LA cm/sec RVSP mmHg LVOT 86.0 cm/sec AOP1/2T m/s Asc. Ao 121 cm/sec RVOT 67.0 cm/sec RA cm/sec PA 98.0 cm/sec AV Gradient Peak 5.8 mmHg AV Mean 4.1 mmHg AV Area 1.6 cm MV Gradient Peak 4.3 mmHg MV Mean 1.4 mmHg MV Area cm COMMENTS: Saw Feeder: Tessie OLIVERAOE Cager Operator: 1 Dr. Rivas TAPE# PACS Pericardial Effusion N DATE OF SERVICE: 12/01/2018 PROCEDURE: Echocardiogram. FINDINGS: 1. Left ventricular chamber size is within normal limits. Left ventricular systolic function is normal. Overall ejection fraction estimated at 55% to 60%. 2. Left atrium, right atrium and right ventricular chamber sizes are within ECHOCARDIOGRAM REPORT [id number] ISABELA ADAMS normal limits. 3. Valvular structures have normal structure and motion. 4. Doppler interrogation reveals moderate tricuspid regurgitation, no other valvular insufficiency or stenosis. Pulmonary systolic pressure is estimated 35 mmHg. 5. No evidence of pericardial effusion or left ventricular thrombus. TRANSINT:[id number] Voice Confirmation ID: [id number] DOCUMENT ID: [id number] 12/04/2018 Edited for account number, dmm. MARIBEL RIVAS MD at 1534 CC: [id number] DICTATION DATE: 12/01/18 1229 WATERPROOF COATING MACHINE TENDER: 12/01/18 1340 ADM IN [facility] [id number] [place] [address]
--- NOTE | 2018-12-04 16:25 | MORECARE ---
CASE MANAGEMENT DISCHARGE SUMMARY PATIENT: ISABELA ADAMS UNIT: [id number] ADM DATE: 11/30/18 AGE: 63 : 55 SEX: F ROOM/BED: D.2233 AUTHOR: PARKER,DOC PHYSICIAN: REFERRING PHYSICIAN: NICOLETTE ANDERSEN MD DATE OF SERVICE: 12/04/18 Discharge Plan Patient Name: ISABELA ADAMS Facility: [facility]:[place] : 1955 Planned Disposition: [facility] Facility Anticipated Discharge Date: Discharge Date: Expected LOS: Initial Reviewer: [id number] Initial Review Date: 12/03/2018 Generated: 12/04/18 5:25 pm Comments DCP- Discharge Planning Updated by [id number]: Lorraine Garcia on 12/04/18 3:[address] Naima with [facility] returned call and states they are out of network with her insurance and she has no out of network benefits. I asked the patient for her second choice and she states she will need to do some research and speak with family and look up star ratings for the other skilled facilities. I instructed her to tell the nurse that she needs to speak with a continuous pillowcase cutter when her decision is made. CM will continue to follow and assist with discharge planning/needs. DCP- Discharge Planning Updated by [id number]: Lorraine Garcia on 12/04/18 12:[address] OT/PT notes faxed to [facility]. I spoke with Naima, she will call to see if they are in Network. Patient states she has not had her scan yet today. I called radiology and spoke with Adwoa and informed her that Dr. Herndon has ordered it and it says it was cancelled due to being "rejected". Adwoa states she will look into it. CM will continue to follow and assist with discharge planning/needs. DCP- Discharge Planning Updated by [email or web address]: Lorraine Garcia on 12/04/18 11:[address] I called Angela at [facility] and clinical faxed. Awaiting a new PT eval and OT eval to send to [facility]. CM will continue to follow and assist with discharge planning/needs. DCP- Discharge Planning Updated by [id number]: Lorraine Garcia on 12/03/18 3:[address] Patient Name: ISABELA ADAMS Admission Status: ER Accout number: [id number] Admission Date: 11-30-2018 : 1955 Admission Diagnosis:OTH FRACTURE OF LEFT LOWER LEG, SUBS FOR CLOS STEVE W HAN Attending: NICOLETTE ANDERSEN Current LOS: 3 Anticipated DC Date: Planned Disposition: Prison Facility Primary Insurance: [facility] MEDICARE SOLUTIONS Discharge Planning Comments: CM met with patient to complete initial dc planning assessment. CM educated patient on the CM role and verbal consent given by patient to complete assessment. Patient lives at home alone. She states she is independent with her care at home, except she no longer drives. States her daughter lives 2 houses down and drives her where she needs to go. CM discussed availability of home health, rehab services, and medical equipment. Patient states at discharge she would like to go to [facility]. She states that she has already checked with her insurance and she still has 20 days for SNF. I will send a referral tomorrow, since admission staff will not be there at this time. I did inform patient she will still need preauthorization from insurance prior to admission to a skilled facility, she voiced understanding. CM will continue to follow and will assist as needed with dc plans/needs. Power Sewing Machine Operator: Lorraine Garcia DCPIA - Discharge Planning Initial Assessment Updated by [email or web address]: Lorraine Garcia on 12/03/18 4:54 pm * Is the patient Alert and Oriented? Yes * How many steps to enter\\exit or inside your home? 0/0 * PCP Dr. Scott * Preadmission Environment Home Alone * ADLs Partial Dependent * Partial ADLs (Assistance needed) Ambulation * Equipment Bedside Commode Glucometer Other Walker Wheelchair * Other Equipment Rollator walker * List name and contact numbers for known caregivers / representatives who currently or will assist patient after discharge: Pilar Gersolitario [facility] - [phone] * Verbal permission to speak to the caregivers and representatives has been obtained from the patient. Yes * Community resources currently utilized [facility] on Wheels * Please name any agencies selected above. [facility] * Additional services required to return to the preadmission environment? Yes * Can the patient safely return to the preadmission environment? Yes * Has this patient been hospitalized within the prior 30 days at any hospital? No Coverage Notice Reviewer: [id number] Cain Lorraine Radha Notice Issued Date-Time: 12/03/2018 16:50 Notice Type: Patient Choice Letter Notice Delivered To: Patient Relationship to Patient: Self Ticket Speculator Name: Delivery Method: HAND - Hand Delivered Jada Days: Prior Verbal Notification: Recipient Understood Notice: Yes Recipient Signature: Yes Med Rec Note Co-signed by Attending: Coverage Notice Comment: ANDRAE for [facility] Last DP export: 12/04/18 12:36 p Patient Name: ISABELA ADAMS Page [id number] at 1625 All edits/amendments must be made on the electronic document DICTATION DATE: 12/04/18 1625 SALES AND EVENTS COORDINATOR: VIKAS 12/04/18 1625 RPT#: [id number] DC DATE: STATUS: ADM IN [facility] [address] [place] [address] END OF REPORT
--- NOTE | 2018-12-04 19:16 | NUR ---
RESTING IN BED WITH EYES CLOSED, ABLE TO VOICE ALL NEEDS, NO SIGNS OF ANY ACUTE DISTRESS AT THIS TIME. DENIES PAIN. IV TO LEFT ARM IS PATENT WITH NS INFUSING AT 75 PER ORDERS. WILL NOTE ANY CHANGE.
[2018-12-04 20:00] VITALS: BP 145/77
--- NOTE | 2018-12-04 21:54 | NUR ---
COMPLAINTS OF PAIN TO LOWER EXTREMITY, MEDICATION GIVEN PER ORDERS, WILL NOTE ANY CHANGE.
--- NOTE | 2018-12-04 23:27 | NUR ---
I have reviewed this patient and I concur with the Shift Assessment completed by the Licensed Practical Nurse today this shift.
[2018-12-05] VITALS: BP 146/80
[2018-12-05 04:00] VITALS: BP 116/54
[2018-12-05 05:39] LABS: BASOPHILS 0.4 % (0-2); EOSINOPHILS 3.2 % (0-7); HEMATOCRIT 33.4 % (36.0-48.0); HEMOGLOBIN 10.9 g/dL (12-16); IMMATURE GRANULOCYTES 0.3 % (0-5); LYMPHOCYTES 21.8 % (15-50); MCH 27.2 pg (26.0-34.0); MCHC 32.6 g/dL (31.0-37.0); MCV 83.3 fL (80.0-100.0); MEAN PLATELET VOLUME 11.9 fL (7.4-10.4); MONOCYTES 10.4 % (2-11); NEUTROPHILS 63.9 % (40-80); PLATELET COUNT 224 10x3/uL (130-400); RBC 4.01 10x6/uL (4.00-5.40); RDW 16.4 % (11.5-14.5); WBC 11.8 10x3/uL (4.8-10.8)
[2018-12-05 06:13] LABS: ANION GAP 8.8 mmol/L (8-16); CALCIUM 8.7 mg/dL (8.5-10.1); CARBON DIOXIDE 31.6 mmol/L (21.0-32.0); MAGNESIUM - SERUM 1.9 mg/dL (1.8-2.4); PHOSPHOROUS 3.8 mg/dL (2.5-4.9); POTASSIUM - SERUM 4.4 mmol/L (3.5-5.1)
--- NOTE | 2018-12-05 07:00 | NUR ---
PATIENT RESTING WITH NO NEEDS VOICED. RESPIRATIONS REGULAR AND NON-LABORED, DENIES PAIN AT THIS TIME. CL IN REACH
[2018-12-05 08:46] VITALS: BP 116/55
[2018-12-05 12:39] VITALS: BP 118/57
[2018-12-05 16:52] VITALS: BP 111/56
--- NOTE | 2018-12-05 18:27 | NUR ---
PATIENT RESTING WITH NO NEEDS VOICED, CL IN REACH
[2018-12-05 19:53] VITALS: BP 147/65
--- NOTE | 2018-12-05 20:00 | NUR ---
ALERT RESTING IN BED, REPORTS SOME PAIN IN LEFT FOOT AFTER WALKING WITH PT TODAY, SEE SHIFT ASSESSMENT, CALL LIGHT IN REACH
[2018-12-06 00:46] VITALS: BP 137/68
[2018-12-06 05:03] VITALS: BP 117/75
[2018-12-06 05:41] LABS: BASOPHILS 0.4 % (0-2); EOSINOPHILS 3.5 % (0-7); HEMATOCRIT 34.5 % (36.0-48.0); HEMOGLOBIN 11.2 g/dL (12-16); IMMATURE GRANULOCYTES 0.3 % (0-5); LYMPHOCYTES 21.6 % (15-50); MCH 27.2 pg (26.0-34.0); MCHC 32.5 g/dL (31.0-37.0); MCV 83.7 fL (80.0-100.0); MEAN PLATELET VOLUME 12.3 fL (7.4-10.4); MONOCYTES 9.8 % (2-11); NEUTROPHILS 64.4 % (40-80); PLATELET COUNT 251 10x3/uL (130-400); RBC 4.12 10x6/uL (4.00-5.40); RDW 16.4 % (11.5-14.5); WBC 12.5 10x3/uL (4.8-10.8)
[2018-12-06 06:15] LABS: ANION GAP 10.2 mmol/L (8-16); CALCIUM 8.8 mg/dL (8.5-10.1); CARBON DIOXIDE 31.4 mmol/L (21.0-32.0); CREATININE - SERUM 0.9 mg/dL (0.6-1.3); MAGNESIUM - SERUM 1.7 mg/dL (1.8-2.4); PHOSPHOROUS 3.8 mg/dL (2.5-4.9); POTASSIUM - SERUM 4.6 mmol/L (3.5-5.1)
[2018-12-06 08:58] VITALS: BP 136/47
--- NOTE | 2018-12-06 09:24 | NUR ---
PT ALERT X 4. BREATH SOUNDS CLEAR BILAT, NON-PRODUCTIVE COUGH. BURN TO LOWER LEFT ABDOMEN. IV TO RIGHT FOREARM, PATENT, DRESSING CDI. BLE EDEMA +1, LEFT SLIGHTLY LARGER. BED LOW, CALL LIGHT IN REACH. NO OTHER NEEDS AT THIS TIME.
[2018-12-06 12:07] VITALS: BP 133/64
[2018-12-06 17:06] VITALS: BP 123/51
--- NOTE | 2018-12-06 19:15 | NUR ---
RECEIVED CARE FROM DAY NURSE. LYING IN BED ON SIDE. REPORTS NO NEEDS AT THIS TIME. CALL LIGHT AT SIDE. IV SL TO RIGHT FA.
[2018-12-06 20:00] VITALS: BP 156/66
[2018-12-07] VITALS: BP 126/65
[2018-12-07 04:00] VITALS: BP 149/71
--- NOTE | 2018-12-07 04:00 | NUR ---
I have reviewed this patient and I concur with the Shift Assessment completed by the Licensed Practical Nurse today this shift.
[2018-12-07 07:48] LABS: ANION GAP 8.9 mmol/L (8-16); CALCIUM 8.7 mg/dL (8.5-10.1); CARBON DIOXIDE 35.1 mmol/L (21.0-32.0); MAGNESIUM - SERUM 1.8 mg/dL (1.8-2.4)
[2018-12-07 07:50] LABS: CREATININE - SERUM 1.2 mg/dL (0.6-1.3)
--- NOTE | 2018-12-07 08:00 | NUR ---
PATIENT IN BED WITH IV INTACT. NO COMPLAINTS OR SIGNS OF DISTRESS. CALL LIGHT WITHIN REACH.
[2018-12-07 08:06] VITALS: BP 125/61
--- NOTE | 2018-12-07 09:30 | NUR ---
PATIENT BACK TO ROOM FROM BONE MARROW SCAN. NO COMPLAINTS OR SIGNS OF DISTRESS. IV INTACT. CALL LIGHT WITHIN REACH.
[2018-12-07 10:12] LABS: BASOPHILS 0.3 % (0-2); EOSINOPHILS 4.1 % (0-7); HEMATOCRIT 34.5 % (36.0-48.0); HEMOGLOBIN 11.3 g/dL (12-16); IMMATURE GRANULOCYTES 0.3 % (0-5); LYMPHOCYTES 20.5 % (15-50); MCH 27.4 pg (26.0-34.0); MCHC 32.8 g/dL (31.0-37.0); MCV 83.5 fL (80.0-100.0); MEAN PLATELET VOLUME 12.6 fL (7.4-10.4); MONOCYTES 7.7 % (2-11); NEUTROPHILS 67.1 % (40-80); PLATELET COUNT 232 10x3/uL (130-400); RBC 4.13 10x6/uL (4.00-5.40); RDW 16.2 % (11.5-14.5); WBC 11.8 10x3/uL (4.8-10.8)
--- NOTE | 2018-12-07 10:30 | NUR ---
PATIENT SITTING UP IN CHAIR WITH IV INTACT. NO COMPLAINTS OR SIGNS OF DISTRESS. CALL LIGHT WITHIN REACH.
[2018-12-07 11:49] VITALS: BP 104/87
--- NOTE | 2018-12-07 11:59 | NUR ---
OT NOTE: PT REPORTS THAT SHE FEELS BAD SECONDARY TO COLD, BUT IS WILLING TO PARTICIPATE IN THERAPY, SHE WANTS TO GO HOME. BED MOB WITH MIN ASSIST. ABLE TO MASSIMO SOCKS WITH SET UP FROM SEATED POSITION. ABLE TO MASSIMO GOWN WITH MIN ASSIST. AMB IN ROOM WITH RW AND CGA. SINK HYGIENE WITH CGA. PT ABLE TO AMB INTO HALLWAY GREATER THAN 100 FT WITH RW. TRANSFERS TO BED AND CHAIR WITH CGA. PT WILL BE PROVIDED WITH RW FOR IN ROOM AMBULATION. NO LOB NOTED DURING DYNAMIC STANDING OR GAIT. ACLVIN TAMAYO, OTR/L
--- NOTE | 2018-12-07 13:46 | NUR ---
Nutrition follow-up: Diet: Consistent CHO PO intake 100% of last 3 meals Pt NPO for surgery after MD Wt: 251# +BM Labs reviewed; Glucose running > 300 most of the time RDN following.
--- NOTE | 2018-12-07 13:50 | NUR ---
PATIENT BACK TO BED WITH IV INTACT. N O COMPLAINTS OR SIGNS OF DISTRESS. FAMILY AT BEDSIDE. CALL LIGHT WITHIN REACH.
--- NOTE | 2018-12-07 15:08 | MORECARE ---
CASE MANAGEMENT DISCHARGE SUMMARY PATIENT: ISABELA ADAMS UNIT: [id number] ADM DATE: 11/30/18 AGE: 63 : 55 SEX: F ROOM/BED: D.2233 AUTHOR: PARKER,DOC PHYSICIAN: REFERRING PHYSICIAN: NICOLETTE ANDERSEN MD DATE OF SERVICE: 12/07/18 Discharge Plan Patient Name: ISABELA ADAMS Facility: [facility]:[place] : 1955 Planned Disposition: Long Term Facility Anticipated Discharge Date: Discharge Date: Expected LOS: Initial Reviewer: [id number] Initial Review Date: 12/03/2018 Generated: 12/07/18 4:07 pm Comments DCP- Discharge Planning Updated by [id number]: Ritu Asher on 12/07/18 2:[address] Patient Name: ISABELA ADAMS Admission Status: ER Accout number: [id number] Admission Date: 11-30-2018 : 1955 Admission Diagnosis:OTH FRACTURE OF LEFT LOWER LEG, SUBS FOR CLOS FX W HAN Attending: NICOLETTE ANDERSEN Current LOS: 7 Anticipated DC Date: Planned Disposition: Long Term Facility Primary Insurance: [facility] MEDICARE SOLUTIONS Discharge Planning Comments: [facility] WOULD NOT ACCEPT PATIENT BECUASE THEY ARE NOT IN NETWORK. CM CALLED JUAN M PRESLEY WITH [facility] TO SEE WHAT SNF ARE IN NETWORK. JUAN M NUMBER IS [phone]. LEFT MSG AND WAITING FOR CALL BACK. Last Repairer Helper: Ritu Asher DCP- Discharge Planning Updated by [id number]: Lorraine Garcia on 12/04/18 3:[address] Naima with [facility] returned call and states they are out of network with her insurance and she has no out of network benefits. I asked the patient for her second choice and she states she will need to do some research and speak with family and look up star ratings for the other skilled facilities. I instructed her to tell the nurse that she needs to speak with a case picker when her decision is made. CM will continue to follow and assist with discharge planning/needs. DCP- Discharge Planning Updated by [id number]: Lorraine Garcia on 12/04/18 12:[address] OT/PT notes faxed to [facility]. I spoke with Naima, she will call to see if they are in Network. Patient states she has not had her scan yet today. I called radiology and spoke with Adwoa and informed her that Dr. Herndon has ordered it and it says it was cancelled due to being "rejected". Adwoa states she will look into it. CM will continue to follow and assist with discharge planning/needs. DCP- Discharge Planning Updated by [id number]: Lorraine Garcia on 12/04/18 11:[address] I called Angela at [facility] and clinical faxed. Awaiting a new PT eval and OT eval to send to [facility]. CM will continue to follow and assist with discharge planning/needs. DCP- Discharge Planning Updated by [id number]: Lorraine Garcia on 12/03/18 3:[address] Patient Name: ISABELA ADAMS Admission Status: ER Accout number: [id number] Admission Date: 11-30-2018 : 1955 Admission Diagnosis:OTH FRACTURE OF LEFT LOWER LEG, SUBS FOR MARIUSZ SHORT Attending: NICOLETTE ANDERSEN Current LOS: 3 Anticipated DC Date: Planned Disposition: Long Term Facility Primary Insurance: [facility] MEDICARE SOLUTIONS Discharge Planning Comments: CM met with patient to complete initial dc planning assessment. CM educated patient on the CM role and verbal consent given by patient to complete assessment. Patient lives at home alone. She states she is independent with her care at home, except she no longer drives. States her daughter lives 2 houses down and drives her where she needs to go. CM discussed availability of home health, rehab services, and medical equipment. Patient states at discharge she would like to go to [facility]. She states that she has already checked with her insurance and she still has 20 days for SNF. I will send a referral tomorrow, since admission staff will not be there at this time. I did inform patient she will still need preauthorization from insurance prior to admission to a skilled facility, she voiced understanding. CM will continue to follow and will assist as needed with dc plans/needs. Last Repairer Helper: Lorraine Garcia DCPIA - Discharge Planning Initial Assessment Updated by [email or web address]: Lorraine Garcia on 12/03/18 4:54 pm * Is the patient Alert and Oriented? Yes * How many steps to enter\\exit or inside your home? 0/0 * PCP Dr. Scott * Preadmission Environment Home Alone * ADLs Partial Dependent * Partial ADLs (Assistance needed) Ambulation * Equipment Bedside Commode Glucometer Other Walker Wheelchair * Other Equipment Rollator walker * List name and contact numbers for known caregivers / representatives who currently or will assist patient after discharge: Pilar Staton D[facility] - [phone] * Verbal permission to speak to the caregivers and representatives has been obtained from the patient. Yes * Community resources currently utilized [facility] Whe[facility] * Please name any agencies selected above. [facility] * Additional services required to return to the preadmission environment? Yes * Can the patient safely return to the preadmission environment? Yes * Has this patient been hospitalized within the prior 30 days at any hospital? No Coverage Notice Reviewer: [id number] Cain Garcia Notice Issued Date-Time: 12/03/2018 16:50 Notice Type: Patient Choice Letter Notice Delivered To: Patient Relationship to Patient: Self Pharmaceutical Sales Representative Name: Delivery Method: HAND - Hand Delivered Jada Days: Prior Verbal Notification: Recipient Understood Notice: Yes Recipient Signature: Yes Med Rec Note Co-signed by Attending: Coverage Notice Comment: ANDRAE for [facility] Last DP export: 12/04/18 3:25 p Patient Name: ISABELA ADAMS Page [id number] at 1508 All edits/amendments must be made on the electronic document DICTATION DATE: 12/07/18 1507 DUCT LAYER SUPERVISOR: VIKAS 12/07/18 1507 RPT#: [id number] DC DATE: STATUS: ADM IN [facility] [address] [place] [address] END OF REPORT
--- NOTE | 2018-12-07 16:01 | MORECARE ---
CASE MANAGEMENT DISCHARGE SUMMARY PATIENT: ISABELA ADAMS UNIT: [id number] ADM DATE: 11/30/18 AGE: 63 : 55 SEX: F ROOM/BED: D.2233 AUTHOR: PARKER,DOC PHYSICIAN: REFERRING PHYSICIAN: NICOLETTE ANDERSEN MD DATE OF SERVICE: 12/07/18 Discharge Plan Patient Name: ISABELA ADAMS Facility: [facility]:[place] : 1955 Planned Disposition: Mcfp Facility Anticipated Discharge Date: Discharge Date: Expected LOS: Initial Reviewer: [id number] Initial Review Date: 12/03/2018 Generated: 12/07/18 5:01 pm Comments DCP- Discharge Planning Updated by [id number]: Ritu Asher on 12/07/18 2:[address] Patient Name: ISABELA ADAMS Admission Status: ER Accout number: [id number] Admission Date: 11-30-2018 : 1955 Admission Diagnosis:OTH FRACTURE OF LEFT LOWER LEG, SUBS FOR CLOS FX W HAN Attending: NICOLETTE ANDERSEN Current LOS: 7 Anticipated DC Date: Planned Disposition: Mcfp Facility Primary Insurance: [facility] MEDICARE SOLUTIONS Discharge Planning Comments: [facility] WOULD NOT ACCEPT PATIENT BECUASE THEY ARE NOT IN NETWORK. CM CALLED JUAN M PRESLEY WITH [facility] TO SEE WHAT SNF ARE IN NETWORK. JUAN M NUMBER IS [phone]. LEFT MSG AND WAITING FOR CALL BACK. Unit Nurse: Ritu Asher DCP- Discharge Planning Updated by [id number]: Lorraine Garcia on 12/04/18 3:[address] Naima with [facility] returned call and states they are out of network with her insurance and she has no out of network benefits. I asked the patient for her second choice and she states she will need to do some research and speak with family and look up star ratings for the other skilled facilities. I instructed her to tell the nurse that she needs to speak with a rehabilitation caseworker when her decision is made. CM will continue to follow and assist with discharge planning/needs. DCP- Discharge Planning Updated by [id number]: Lorraine Garcia on 12/04/18 12:[address] OT/PT notes faxed to [facility]. I spoke with Naima, she will call to see if they are in Network. Patient states she has not had her scan yet today. I called radiology and spoke with Adowa and informed her that Dr. Herndon has ordered it and it says it was cancelled due to being "rejected". Adwoa states she will look into it. CM will continue to follow and assist with discharge planning/needs. DCP- Discharge Planning Updated by [id number]: Lorraine Garcia on 12/04/18 11:[address] I called Angela at [facility] and clinical faxed. Awaiting a new PT eval and OT eval to send to [facility]. CM will continue to follow and assist with discharge planning/needs. DCP- Discharge Planning Updated by [email or web address]: Lorraine Garcia on 12/03/18 3:[address] Patient Name: ISABELA ADAMS Admission Status: ER Accout number: [id number] Admission Date: 11-30-2018 : 1955 Admission Diagnosis:OTH FRACTURE OF LEFT LOWER LEG, SUBS FOR MARIUSZ SHORT Attending: NICOLETTE ANDERSEN Current LOS: 3 Anticipated DC Date: Planned Disposition: Mcfp Facility Primary Insurance: [facility] MEDICARE SOLUTIONS Discharge Planning Comments: CM met with patient to complete initial dc planning assessment. CM educated patient on the CM role and verbal consent given by patient to complete assessment. Patient lives at home alone. She states she is independent with her care at home, except she no longer drives. States her daughter lives 2 houses down and drives her where she needs to go. CM discussed availability of home health, rehab services, and medical equipment. Patient states at discharge she would like to go to [facility]. She states that she has already checked with her insurance and she still has 20 days for SNF. I will send a referral tomorrow, since admission staff will not be there at this time. I did inform patient she will still need preauthorization from insurance prior to admission to a skilled facility, she voiced understanding. CM will continue to follow and will assist as needed with dc plans/needs. Unit Nurse: Lorraine Garcia DCPIA - Discharge Planning Initial Assessment Updated by [id number]: Lorraine Garcia on 12/03/18 4:54 pm * Is the patient Alert and Oriented? Yes * How many steps to enter\\exit or inside your home? 0/0 * PCP Dr. Scott * Preadmission Environment Home Alone * ADLs Partial Dependent * Partial ADLs (Assistance needed) Ambulation * Equipment Bedside Commode Glucometer Other Walker Wheelchair * Other Equipment Rollator walker * List name and contact numbers for known caregivers / representatives who currently or will assist patient after discharge: Pilar Staton - DTR - [phone] * Verbal permission to speak to the caregivers and representatives has been obtained from the patient. Yes * Community resources currently utilized [facility] Whe[facility] * Please name any agencies selected above. [facility] * Additional services required to return to the preadmission environment? Yes * Can the patient safely return to the preadmission environment? Yes * Has this patient been hospitalized within the prior 30 days at any hospital? No Coverage Notice Reviewer: [id number] Cain Garcia Notice Issued Date-Time: 12/03/2018 16:50 Notice Type: Patient Choice Letter Notice Delivered To: Patient Relationship to Patient: Self Pick Up Attendant Name: Delivery Method: HAND - Hand Delivered Jada Days: Prior Verbal Notification: Recipient Understood Notice: Yes Recipient Signature: Yes Med Rec Note Co-signed by Attending: Coverage Notice Comment: ANDRAE for [facility] Last DP export: 12/07/18 2:08 p Patient Name: SIABELA ADAMS Page [id number] at 1601 All edits/amendments must be made on the electronic document DICTATION DATE: 12/07/18 1601 HOLLOCK MAKER: VIKAS 12/07/18 1601 RPT#: [id number] DC DATE: STATUS: ADM IN [facility] [address] [place] [address] END OF REPORT
--- NOTE | 2018-12-07 16:32 | MORECARE ---
CASE MANAGEMENT DISCHARGE SUMMARY PATIENT: ISABELA ADAMS UNIT: [id number] ADM DATE: 11/30/18 AGE: 63 : 55 SEX: F ROOM/BED: D.2233 AUTHOR: PARKER,DOC PHYSICIAN: REFERRING PHYSICIAN: NICOLETTE ANDERSEN MD DATE OF SERVICE: 12/07/18 Discharge Plan Patient Name: ISABELA ADAMS Facility: [facility]:[place] : 1955 Planned Disposition: Long Term Facility Anticipated Discharge Date: Discharge Date: Expected LOS: Initial Reviewer: [id number] Initial Review Date: 12/03/2018 Generated: 12/07/18 5:31 pm Comments DCP- Discharge Planning Updated by [id number]: Ritu Asher on 12/07/18 3:[address] Patient Name: ISABELA ADAMS Admission Status: ER Accout number: [id number] Admission Date: 11-30-2018 : 1955 Admission Diagnosis:OTH FRACTURE OF LEFT LOWER LEG, SUBS FOR CLOS FX W HAN Attending: NICOLETTE ANDERSEN Current LOS: 7 Anticipated DC Date: Planned Disposition: Long Term Facility Primary Insurance: [facility] MEDICARE SOLUTIONS Discharge Planning Comments: [facility] WOULD NOT ACCEPT PATIENT BECUASE THEY ARE NOT IN NETWORK. CALLED JUAN M PRESLEY WITH [facility] TO SEE WHAT SNF ARE IN NETWORK. JUAN M NUMBER IS [phone]. LEFT MSG AND WAITING FOR CALL BACK. Family Mediator: Ritu Asher Appended by Ritu Asher on 12/07/2018 16:28 CDT: PATIENT [facility]. SHE CALLED AND SAID SHE TALKED TO INSURANCE COMPANY AND THEY COVER [facility]. I CALLED JUAN M THE WITH [facility] AND LEFT HER A MSG ASKING IF SHE QUALIFIES FOR [facility]. WAITING FOR CALL BACK. DCP- Discharge Planning Updated by [id number]: Lorraine Garcia on 12/04/18 3:[address] Naima with [facility] returned call and states they are out of network with her insurance and she has no out of network benefits. I asked the patient for her second choice and she states she will need to do some research and speak with family and look up star ratings for the other skilled facilities. I instructed her to tell the nurse that she needs to speak with a disability case manager when her decision is made. CM will continue to follow and assist with discharge planning/needs. DCP- Discharge Planning Updated by [id number]: Lorraine Garcia on 12/04/18 12:[address] OT/PT notes faxed to [facility]. I spoke with Naima, she will call to see if they are in Network. Patient states she has not had her scan yet today. I called radiology and spoke with Adwoa and informed her that Dr. Herndon has ordered it and it says it was cancelled due to being "rejected". Adwoa states she will look into it. CM will continue to follow and assist with discharge planning/needs. DCP- Discharge Planning Updated by [id number]: Lorraine Garcia on 12/04/18 11:[address] I called Angela at [facility] and clinical faxed. Awaiting a new PT eval and OT eval to send to [facility]. CM will continue to follow and assist with discharge planning/needs. DCP- Discharge Planning Updated by [email or web address]: Lorraine Garcia on 12/03/18 3:[address] Patient Name: ISABELA ADAMS Admission Status: ER Accout number: [id number] Admission Date: 11-30-2018 : 1955 Admission Diagnosis:OTH FRACTURE OF LEFT LOWER LEG, SUBS FOR MARIUSZ SHORT Attending: NICOLETTE ANDERSEN Current LOS: 3 Anticipated DC Date: Planned Disposition: Long Term Facility Primary Insurance: [facility] MEDICARE SOLUTIONS Discharge Planning Comments: CM met with patient to complete initial dc planning assessment. CM educated patient on the CM role and verbal consent given by patient to complete assessment. Patient lives at home alone. She states she is independent with her care at home, except she no longer drives. States her daughter lives 2 houses down and drives her where she needs to go. CM discussed availability of home health, rehab services, and medical equipment. Patient states at discharge she would like to go to [facility]. She states that she has already checked with her insurance and she still has 20 days for SNF. I will send a referral tomorrow, since admission staff will not be there at this time. I did inform patient she will still need preauthorization from insurance prior to admission to a skilled facility, she voiced understanding. CM will continue to follow and will assist as needed with dc plans/needs. Family Mediator: Lorraine Garcia DCPIA - Discharge Planning Initial Assessment Updated by [id number]: Lorraine Greerrosamaria on 12/03/18 4:54 pm * Is the patient Alert and Oriented? Yes * How many steps to enter\\exit or inside your home? 0/0 * PCP Dr. Scott * Preadmission Environment Home Alone * ADLs Partial Dependent * Partial ADLs (Assistance needed) Ambulation * Equipment Bedside Commode Glucometer Other Walker Wheelchair * Other Equipment Rollator walker * List name and contact numbers for known caregivers / representatives who currently or will assist patient after discharge: Pilar Staton [facility] - [phone] * Verbal permission to speak to the caregivers and representatives has been obtained from the patient. Yes * Community resources currently utilized [facility] Wheels * Please name any agencies selected above. [facility] * Additional services required to return to the preadmission environment? Yes * Can the patient safely return to the preadmission environment? Yes * Has this patient been hospitalized within the prior 30 days at any hospital? No Coverage Notice Reviewer: [id number] - Lorraine Greerrosamaria Notice Issued Date-Time: 12/03/2018 16:50 Notice Type: Patient Choice Letter Notice Delivered To: Patient Relationship to Patient: Self Application Manager Name: Delivery Method: HAND - Hand Delivered Jada Days: Prior Verbal Notification: Recipient Understood Notice: Yes Recipient Signature: Yes Med Rec Note Co-signed by Attending: Coverage Notice Comment: ANDRAE for [facility] Last DP export: 12/07/18 3:01 p Patient Name: ISABELA ADAMS Page 40105 at 1632 All edits/amendments must be made on the electronic document DICTATION DATE: 12/07/18 1631 LOOP CUTTER: VIKAS 12/07/18 1631 RPT#: [id number] DC DATE: STATUS: ADM IN [facility] [address] [place] [address] END OF REPORT
--- NOTE | 2018-12-07 17:20 | NUR ---
PATIENT SITTING UP IN BED EATING WITH NO COMPLAINTS OR SIGNS OF DISTRESS. IV INTACT. CALL LIGHT WITHIN REACH.
--- NOTE | 2018-12-07 18:24 | NUR ---
PATIENT IN BED WITH IV INTACT. EYES CLOSED RESTING QUIETLY. CALL LIGHT WITHIN REACH.
--- NOTE | 2018-12-07 19:29 | NUR ---
OT NOTE: PT COMPLETED ADL MOB WITH SBA/CGA. PT COMPLETED EOB SITTING BALANCE. PT COMPLETED MASSIMO SOCKS AT EOB WITH SET UP. THANK YOU,KEVIN ROSADO
[2018-12-07 19:53] VITALS: BP 119/54
--- NOTE | 2018-12-07 20:00 | NUR ---
ASSESSMENT PER FLOWSHEET. IV RT FOREARM SALINE LOCKED. LEFT FOOT SWOLLEN ELEVATED ON PILLOW. SR UP X2 CALL LIGHT WITHIN REACH.
--- NOTE | 2018-12-07 21:00 | NUR ---
MEDS GIVEN PER MAY. ZPES=[id number] NO COVERAGE NEEDED. PT TOOK HER OWN HS INSULIN BROUGHT FROM HOME. SEE MAY. PT HAS A BURN AREA TO LEFT LOWER ABDOMEN.
--- NOTE | 2018-12-07 22:48 | NUR ---
COUGHING REQUESTING COUGH MED. ROBITUSSIN 5 ML PO GIVEN FOR COUGH.
[2018-12-08 01:12] VITALS: BP 105/75
[2018-12-08 04:56] VITALS: BP 112/74
[2018-12-08 05:11] LABS: BASOPHILS 0.2 % (0-2); HEMATOCRIT 33.9 % (36.0-48.0); HEMOGLOBIN 11.1 g/dL (12-16); IMMATURE GRANULOCYTES 0.2 % (0-5); LYMPHOCYTES 13.4 % (15-50); MCHC 32.7 g/dL (31.0-37.0); MCV 82.5 fL (80.0-100.0); MEAN PLATELET VOLUME 12.3 fL (7.4-10.4); MONOCYTES 6.6 % (2-11); NEUTROPHILS 76.6 % (40-80); PLATELET COUNT 229 10x3/uL (130-400); RBC 4.11 10x6/uL (4.00-5.40)
[2018-12-08 05:16] LABS: WBC 17.2 10x3/uL (4.8-10.8)
[2018-12-08 05:44] LABS: ALBUMIN 2.7 g/dL (3.4-5.0); ANION GAP 10.6 mmol/L (8-16); BILIRUBIN - TOTAL 0.37 mg/dL (0.2-1.3); CALCIUM 8.9 mg/dL (8.5-10.1); CARBON DIOXIDE 32.3 mmol/L (21.0-32.0); CREATININE - SERUM 1.1 mg/dL (0.6-1.3); POTASSIUM - SERUM 3.9 mmol/L (3.5-5.1); PROTEIN - SERUM 7.2 g/dL (6.4-8.2)
--- NOTE | 2018-12-08 08:30 | NUR ---
ASSESSMENT PER FLOW SHEET. PT IS WITHOUT DISTRESS.MONITOR FOR NEEDS
[2018-12-08 08:31] VITALS: BP 106/50
--- NOTE | 2018-12-08 10:05 | MORECARE ---
CASE MANAGEMENT DISCHARGE SUMMARY PATIENT: ISABELA ADAMS UNIT: [id number] ADM DATE: 11/30/18 AGE: 63 : 55 SEX: F ROOM/BED: D.2233 AUTHOR: PARKER,DOC PHYSICIAN: REFERRING PHYSICIAN: NICOLETTE ANDERSEN MD DATE OF SERVICE: 12/08/18 Discharge Plan Patient Name: ISABELA ADAMS Facility: [facility]:[place] : 1955 Planned Disposition: Prison Facility Anticipated Discharge Date: Discharge Date: Expected LOS: Initial Reviewer: [id number] Initial Review Date: 12/03/2018 Generated: 12/08/18 11:05 am Comments DCP- Discharge Planning Updated by [id number]: Kerrie Smith on 12/08/18 9:[address] DC PLAN: Referrals sent to [facility] or [facility]. Cm met with patient and she is [facility] CM has [facility] Medicare Solutions and will require authorization. ANDRAE presented, explained, and singed by patient for Rehab and [facility]. Patient's first choice is Rehab. Kerrie Smith RN, [facility] DCP- Discharge Planning Updated by [id number]: Ritu Asher on 12/07/18 3:[address] Patient Name: ISABELA ADAMS Admission Status: ER Accout number: [id number] Admission Date: 11-30-2018 : 1955 Admission Diagnosis:OTH FRACTURE OF LEFT LOWER LEG, SUBS FOR CLOS FX W HAN Attending: NICOLETTE ANDERSEN Current LOS: 7 Anticipated DC Date: Planned Disposition: Prison Facility Primary Insurance: [facility] MEDICARE SOLUTIONS Discharge Planning Comments: [facility] WOULD NOT ACCEPT PATIENT BECUASE THEY ARE NOT IN NETWORK. FERNANDEZ CALLED JUAN M PRESLEY WITH [facility] TO SEE WHAT SNF ARE IN NETWORK. JUAN M NUMBER IS [phone]. LEFT MSG AND WAITING FOR CALL BACK. Refrigeration Service Inspector: Ritu Asher Appended by Ritu Asher on 12/07/2018 16:28 CDT: PATIENT WANTS INPATIENT REHAB FACILITY. SHE CALLED AND SAID SHE TALKED TO INSURANCE COMPANY AND THEY COVER . I CALLED SUSAN WITH [facility] AND LEFT HER A MSG ASKING IF SHE QUALIFIES FOR [facility]. WAITING FOR CALL BACK. DCP- Discharge Planning Updated by [id number]: Lorraine Garcia on 12/04/18 3:[address] Naima with [facility] returned call and states they are out of network with her insurance and she has no out of network benefits. I asked the patient for her second choice and she states she will need to do some research and speak with family and look up star ratings for the other skilled facilities. I instructed her to tell the nurse that she needs to speak with a clinical case manager when her decision is made. CM will continue to follow and assist with discharge planning/needs. DCP- Discharge Planning Updated by [id number]: Lorraine Garcia on 12/04/18 12:[address] OT/PT notes faxed to [facility]. I spoke with Naima, she will call to see if they are in Network. Patient states she has not had her scan yet today. I called radiology and spoke with Adwo[facility] and informed her that Dr. Herndon has ordered it and it says it was cancelled due to being "rejected". Adwoa states she will look into it. CM will continue to follow and assist with discharge planning/needs. DCP- Discharge Planning Updated by [id number]: Lorraine Greerrosamaria on 12/04/18 11:[address] I called Angela at [facility] and clinical faxed. Awaiting a new PT eval and OT eval to send to [facility]. CM will continue to follow and assist with discharge planning/needs. DCP- Discharge Planning Updated by [id number]: Lorraine Greerrosamaria on 12/03/18 3:[address] Patient Name: ISABELA ADAMS Admission Status: ER Accout number: [id number] Admission Date: 11-30-2018 : 1955 Admission Diagnosis:OTH FRACTURE OF LEFT LOWER LEG, SUBS FOR MARIUSZ SHORT Attending: NICOLETTE ANDERSEN Current LOS: 3 Anticipated DC Date: Planned Disposition: Prison Facility Primary Insurance: [facility] MEDICARE SOLUTIONS Discharge Planning Comments: CM met with patient to complete initial dc planning assessment. CM educated patient on the CM role and verbal consent given by patient to complete assessment. Patient lives at home alone. She states she is independent with her care at home, except she no longer drives. States her daughter lives 2 houses down and drives her where she needs to go. CM discussed availability of home health, rehab services, and medical equipment. Patient states at discharge she would like to go to [facility]. She states that she has already checked with her insurance and she still has 20 days for SNF. I will send a referral tomorrow, since admission staff will not be there at this time. I did inform patient she will still need preauthorization from insurance prior to admission to a skilled facility, she voiced understanding. CM will continue to follow and will assist as needed with dc plans/needs. Refrigeration Service Inspector: Lorraine Garcia DCPIA - Discharge Planning Initial Assessment Updated by [id number]: Lorraine Garcia on 12/03/18 4:54 pm * Is the patient Alert and Oriented? Yes * How many steps to enter\\exit or inside your home? 0/0 * PCP Dr. Scott * Preadmission Environment Home Alone * ADLs Partial Dependent * Partial ADLs (Assistance needed) Ambulation * Equipment Bedside Commode Glucometer Other Walker Wheelchair * Other Equipment Rollator walker * List name and contact numbers for known caregivers / representatives who currently or will assist patient after discharge: Pilar Staton [facility] - [phone] * Verbal permission to speak to the caregivers and representatives has been obtained from the patient. Yes * Community resources currently utilized [facility] Wheels * Please name any agencies selected above. [facility] * Additional services required to return to the preadmission environment? Yes * Can the patient safely return to the preadmission environment? Yes * Has this patient been hospitalized within the prior 30 days at any hospital? No Coverage Notice Reviewer: [id number] - Lorraine Garcia Notice Issued Date-Time: 12/03/2018 16:50 Notice Type: Patient Choice Letter Notice Delivered To: Patient Relationship to Patient: Self Straddle Bug Driver Name: Delivery Method: HAND - Hand Delivered Jada Days: Prior Verbal Notification: Recipient Understood Notice: Yes Recipient Signature: Yes Med Rec Note Co-signed by Attending: Coverage Notice Comment: ANDRAE for [facility] Last DP export: 12/07/18 3:32 p Patient Name: ISABELA ADAMS Page 97045 at 1005 All edits/amendments must be made on the electronic document DICTATION DATE: 12/08/181004 TOW DRIVER: VIKAS 12/08/18 100 RPT#: [id number] DC DATE: STATUS: ADM IN [facility] [address] [place] [address] END OF REPORT
--- NOTE | 2018-12-08 11:29 | MORECARE ---
CASE MANAGEMENT DISCHARGE SUMMARY PATIENT: ISABELA ADAMS UNIT: [id number] ADM DATE: 11/30/18 AGE: 63 : 55 SEX: F ROOM/BED: D.2233 AUTHOR: PARKER,DOC PHYSICIAN: REFERRING PHYSICIAN: NICOLETTE ANDERSEN MD DATE OF SERVICE: 12/08/18 Discharge Plan Patient Name: ISABELA ADAMS Facility: [facility]:[place] : 1955 Planned Disposition: Mcfp Facility Anticipated Discharge Date: Discharge Date: Expected LOS: Initial Reviewer: [id number] Initial Review Date: 12/03/2018 Generated: 12/08/18 12:29 pm Comments DCP- Discharge Planning Updated by [id number]: Kerrie Smith on 12/08/18 9:[address] DC PLAN: Referrals sent to [facility] Inpatient or [facility]. Cm met with patient and she is requesting Inpatient rehab at [facility] or [facility] CM has [facility] Medicare Solutions and will require authorization. ANDRAE presented, explained, and singed by patient for [facility] Rehab and [facility]. Patient's first choice is [facility] Rehab. Kerrie Smith RN, [facility] DCP- Discharge Planning Updated by [id number]: Ritu Asher on 12/07/18 3:[address] Patient Name: ISABELA ADAMS Admission Status: ER Accout number: [id number] Admission Date: 11-30-2018 : 1955 Admission Diagnosis:OTH FRACTURE OF LEFT LOWER LEG, SUBS FOR CLOS FX W HAN Attending: NICOLETTE ANDERSEN Current LOS: 7 Anticipated DC Date: Planned Disposition: Mcfp Facility Primary Insurance: [facility] MEDICARE SOLUTIONS Discharge Planning Comments: [facility] WOULD NOT ACCEPT PATIENT BECUASE THEY ARE NOT IN NETWORK. FERNANDEZ CALLED JUAN M PRESLEY WITH [facility] TO SEE WHAT SNF ARE IN NETWORK. JUAN M NUMBER IS [phone]. LEFT MSG AND WAITING FOR CALL BACK. Sex Offender Treatment Professional: Ritu Asher Appended by Ritu Asher on 12/07/2018 16:28 CDT: PATIENT WANTS [facility] INPATIENT REHAB FACILITY. SHE CALLED AND SAID SHE TALKED TO INSURANCE COMPANY AND THEY COVER [facility]. I CALLED SUSAN WITH [facility] AND LEFT HER A MSG ASKING IF SHE QUALIFIES FOR [facility]. WAITING FOR CALL BACK. DCP- Discharge Planning Updated by [id number]: Lorraine Garcia on 12/04/18 3:[address] Naima with [facility] returned call and states they are out of network with her insurance and she has no out of network benefits. I asked the patient for her second choice and she states she will need to do some research and speak with family and look up star ratings for the other skilled facilities. I instructed her to tell the nurse that she needs to speak with a sample case porter when her decision is made. CM will continue to follow and assist with discharge planning/needs. DCP- Discharge Planning Updated by [id number]: Lorraine Garcia on 12/04/18 12:[address] OT/PT notes faxed to [facility]. I spoke with Naima, she will call to see if they are in Network. Patient states she has not had her scan yet today. I called radiology and spoke with Adwoa and informed her that Dr. Herndon has ordered it and it says it was cancelled due to being "rejected". Adwoa states she will look into it. CM will continue to follow and assist with discharge planning/needs. DCP- Discharge Planning Updated by [id number]: Lorraine Greerrosamaria on 12/04/18 11:[address] I called Angela at [facility] and clinical faxed. Awaiting a new PT eval and OT eval to send to [facility]. CM will continue to follow and assist with discharge planning/needs. DCP- Discharge Planning Updated by [email or web address]: Lorraine Greerrosamaria on 12/03/18 3:[address] Patient Name: ISABELA ADAMS Admission Status: ER Accout number: [id number] Admission Date: 11-30-2018 : 1955 Admission Diagnosis:OTH FRACTURE OF LEFT LOWER LEG, SUBS FOR MARIUSZ SHORT Attending: NICOLETTE ANDERSEN Current LOS: 3 Anticipated DC Date: Planned Disposition: Mcfp Facility Primary Insurance: [facility] MEDICARE SOLUTIONS Discharge Planning Comments: CM met with patient to complete initial dc planning assessment. CM educated patient on the CM role and verbal consent given by patient to complete assessment. Patient lives at home alone. She states she is independent with her care at home, except she no longer drives. States her daughter lives 2 houses down and drives her where she needs to go. CM discussed availability of home health, rehab services, and medical equipment. Patient states at discharge she would like to go to [facility] SNF. She states that she has already checked with her insurance and she still has 20 days for SNF. I will send a referral tomorrow, since admission staff will not be there at this time. I did inform patient she will still need preauthorization from insurance prior to admission to a skilled facility, she voiced understanding. CM will continue to follow and will assist as needed with dc plans/needs. Sex Offender Treatment Professional: Lorraine Garcia DCPIA - Discharge Planning Initial Assessment Updated by [id number]: Lorraine Garcia on 12/03/18 4:54 pm * Is the patient Alert and Oriented? Yes * How many steps to enter\\exit or inside your home? 0/0 * PCP Dr. Scott * Preadmission Environment Home Alone * ADLs Partial Dependent * Partial ADLs (Assistance needed) Ambulation * Equipment Bedside Commode Glucometer Other Walker Wheelchair * Other Equipment Rollator walker * List name and contact numbers for known caregivers / representatives who currently or will assist patient after discharge: Pilar Staton [facility] - [phone] * Verbal permission to speak to the caregivers and representatives has been obtained from the patient. Yes * Community resources currently utilized [facility] * Please name any agencies selected above. [facility] * Additional services required to return to the preadmission environment? Yes * Can the patient safely return to the preadmission environment? Yes * Has this patient been hospitalized within the prior 30 days at any hospital? No External Providers External Provider: [facility] Next Contact Date: Service Request Date: Service Type: Resolution: Reviewer: Comments: Coverage Notice Reviewer: [id number] - Lorraine Garcia Notice Issued Date-Time: 12/03/2018 16:50 Notice Type: Patient Choice Letter Notice Delivered To: Patient Relationship to Patient: Self Nuclear Power Reactor Operator Name: Delivery Method: HAND - Hand Delivered Jada Days: Prior Verbal Notification: Recipient Understood Notice: Yes Recipient Signature: Yes Med Rec Note Co-signed by Attending: Coverage Notice Comment: ANDRAE for [facility] Last DP export: 12/08/18 9:05 a Patient Name: ISABELA ADAMS Page [id number] at 1129 All edits/amendments must be made on the electronic document DICTATION DATE: 12/08/181128 MEDIA COORDINATOR: VIKAS 12/08/181128 RPT#: [id number] DC DATE: STATUS: ADM IN [facility] [address] [place] [address] END OF REPORT
[2018-12-08 12:27] VITALS: BP 134/65
--- NOTE | 2018-12-08 14:44 | MORECARE ---
CASE MANAGEMENT DISCHARGE SUMMARY PATIENT: ISABELA ADAMS UNIT: [id number] ADM DATE: 11/30/18 AGE: 63 : 55 SEX: F ROOM/BED: D.2233 AUTHOR: PARKER,DOC PHYSICIAN: REFERRING PHYSICIAN: NICOLETET ANDERSEN MD DATE OF SERVICE: 12/08/18 Discharge Plan Patient Name: ISABELA ADAMS Facility: [facility]:[place] : 1955 Planned Disposition: Snf Facility Anticipated Discharge Date: Discharge Date: Expected LOS: Initial Reviewer: [email or web address] Initial Review Date: 12/03/2018 Generated: 12/08/18 3:44 pm Comments DCP- Discharge Planning Updated by [email or web address]: Kerrie Smith on 12/08/18 1:[address] DC PLAN: Referral pending with [facility]. Received call from Antonia with [facility] rehab who stated they are out of network with patients insurance. [facility] and will await admission determination. Kerrie Smith RN, [facility] DCP- Discharge Planning Updated by [id number]: Kerrie Smith on 12/08/18 9:[address] DC PLAN: Referrals sent to [facility] Inpatient or [facility]. Cm met with patient and she is requesting Inpatient rehab at [facility] Acute Rehab or [facility]. CM has [facility] Medicare Solutions and will require authorization. ANDRAE presented, explained, and singed by patient [facility] and [facility]. Patient's first choice is [facility] Rehab. Kerrie Smith RN, [facility] DCP- Discharge Planning Updated by [id number]: Ritu Asher on 12/07/18 3:[address] Patient Name: ISABELA ADAMS Admission Status: ER Accout number: [id number] Admission Date: 11-30-2018 : 1955 Admission Diagnosis:OTH FRACTURE OF LEFT LOWER LEG, SUBS FOR MARIUSZ SHORT Attending: NICOLETTE ANDERSEN Current LOS: 7 Anticipated DC Date: Planned Disposition: Snf Facility Primary Insurance: [facility] MEDICARE SOLUTIONS Discharge Planning Comments: [facility] WOULD NOT ACCEPT PATIENT BECUASE THEY ARE NOT IN NETWORK. FERNANDEZ CALLED JUAN M PRESLEY WITH [facility] TO SEE WHAT SNF ARE IN NETWORK. JUAN M NUMBER IS [phone]. LEFT MSG AND WAITING FOR CALL BACK. Cat Hooker: Ritu Asher Appended by Ritu Asher on 12/07/2018 16:28 CDT: PATIENT WANTS [facility]. SHE CALLED AND SAID SHE TALKED TO INSURANCE COMPANY AND THEY COVER [facility]. I CALLED JUAN M THE CM WITH [facility] AND LEFT HER A MSG ASKING IF SHE QUALIFIES FOR [facility]. WAITING FOR CALL BACK. DCP- Discharge Planning Updated by [id number]: Lorraine Garcia on 12/04/18 3:[address] Naima with [facility] returned call and states they are out of network with her insurance and she has no out of network benefits. I asked the patient for her second choice and she states she will need to do some research and speak with family and look up star ratings for the other skilled facilities. I instructed her to tell the nurse that she needs to speak with a keycase assembler when her decision is made. CM will continue to follow and assist with discharge planning/needs. DCP- Discharge Planning Updated by [id number]: Lorraine Garcia on 12/04/18 12:[address] OT/PT notes faxed to [facility]. I spoke with Naima, she will call to see if they are in Network. Patient states she has not had her scan yet today. I called radiology and spoke with Adwoa and informed her that Dr. Herndon has ordered it and it says it was cancelled due to being "rejected". Adwoa states she will look into it. CM will continue to follow and assist with discharge planning/needs. DCP- Discharge Planning Updated by [id number]: Lorraine Garcia on 12/04/18 11:[address] I called Angela at [facility] and clinical faxed. Awaiting a new PT eval and OT eval to send to [facility]. CM will continue to follow and assist with discharge planning/needs. DCP- Discharge Planning Updated by [id number]: Lorraine Garcia on 12/03/18 3:[address] Patient Name: ISABELA ADAMS Admission Status: ER Accout number: [id number] Admission Date: 11-30-2018 : 1955 Admission Diagnosis:OTH FRACTURE OF LEFT LOWER LEG, SUBS FOR CLOS FX W HAN Attending: NICOLETTE ANDERSEN Current LOS: 3 Anticipated DC Date: Planned Disposition: Snf Facility Primary Insurance: [facility] MEDICARE SOLUTIONS Discharge Planning Comments: CM met with patient to complete initial dc planning assessment. CM educated patient on the CM role and verbal consent given by patient to complete assessment. Patient lives at home alone. She states she is independent with her care at home, except she no longer drives. States her daughter lives 2 houses down and drives her where she needs to go. CM discussed availability of home health, rehab services, and medical equipment. Patient states at discharge she would like to go to [facility] SNF. She states that she has already checked with her insurance and she still has 20 days for SNF. I will send a referral tomorrow, since admission staff will not be there at this time. I did inform patient she will still need preauthorization from insurance prior to admission to a skilled facility, she voiced understanding. CM will continue to follow and will assist as needed with dc plans/needs. Cat Hooker: Lorraine Garcia DCPIA - Discharge Planning Initial Assessment Updated by [id number]: Lorraine Garcia on 12/03/18 4:54 pm * Is the patient Alert and Oriented? Yes * How many steps to enter\\exit or inside your home? 0/0 * PCP Dr. Scott * Preadmission Environment Home Alone * ADLs Partial Dependent * Partial ADLs (Assistance needed) Ambulation * Equipment Bedside Commode Glucometer Other Walker Wheelchair * Other Equipment Rollator walker * List name and contact numbers for known caregivers / representatives who currently or will assist patient after discharge: Pilar Gersolitario [facility] - [phone] * Verbal permission to speak to the caregivers and representatives has been obtained from the patient. Yes * Community resources currently utilized [facility] * Please name any agencies selected above. [facility] * Additional services required to return to the preadmission environment? Yes * Can the patient safely return to the preadmission environment? Yes * Has this patient been hospitalized within the prior 30 days at any hospital? No External Providers External Provider: [facility] Next Contact Date: Service Request Date: Service Type: Resolution: Reviewer: Comments: Coverage Notice Reviewer: [id number] - Lorraine Garcia Notice Issued Date-Time: 12/03/2018 16:50 Notice Type: Patient Choice Letter Notice Delivered To: Patient Relationship to Patient: Self Oral And Maxillofacial Surgeon Name: Delivery Method: HAND - Hand Delivered Jada Days: Prior Verbal Notification: Recipient Understood Notice: Yes Recipient Signature: Yes Med Rec Note Co-signed by Attending: Coverage Notice Comment: ANDRAE for [facility] Last DP export: 12/08/18 10:29 a Patient Name: ISABELA ADAMS Page [id number] at 1444 All edits/amendments must be made on the electronic document DICTATION DATE: 12/08/18 1444 AIRFREIGHT OPERATIONS AGENT: VIKAS 12/08/18 1444 RPT#: [id number] DC DATE: STATUS: ADM IN [facility] [address] [place] [address] END OF REPORT
--- NOTE | 2018-12-08 14:52 | MORECARE ---
CASE MANAGEMENT DISCHARGE SUMMARY PATIENT: ISABELA ADAMS UNIT: [id number] ADM DATE: 11/30/18 AGE: 63 : 55 SEX: F ROOM/BED: D.2233 AUTHOR: PARKER,DOC PHYSICIAN: REFERRING PHYSICIAN: NICOLETTE ANDERSEN MD DATE OF SERVICE: 12/08/18 Discharge Plan Patient Name: ISABELA ADAMS Facility: [facility]:[place] : 1955 Planned Disposition: Correction Facility Anticipated Discharge Date: Discharge Date: Expected LOS: Initial Reviewer: [email or web address] Initial Review Date: 12/03/2018 Generated: 12/08/18 3:51 pm Comments DCP- Discharge Planning Updated by [id number]: Kerrie Smith on 12/08/18 1:[address] DC PLAN: Referral pending with [facility]. Received call from Antonia with [facility] rehab who stated they are out of network with patients insurance. [facility] and will await admission determination. Kerrie Smith RN, [facility] DCP- Discharge Planning Updated by [id number]: Kerrie Smith on 12/08/18 9:[address] DC PLAN: Referrals sent to [facility] Inpatient or [facility]. Cm met with patient and she is requesting Inpatient rehab at [facility] or [facility]. CM has [facility] Medicare Solutions and will require authorization. ANDRAE presented, explained, and singed by patient [facility] and [facility]. Patient's first choice is [facility] Rehab. Kerrie Smith RN, [facility] DCP- Discharge Planning Updated by [id number]: Ritu Asher on 12/07/18 3:[address] Patient Name: ISABELA ADAMS Admission Status: ER Accout number: [id number] Admission Date: 11-30-2018 : 1955 Admission Diagnosis:OTH FRACTURE OF LEFT LOWER LEG, SUBS FOR MARIUSZ SHORT Attending: NICOLETTE ANDERSEN Current LOS: 7 Anticipated DC Date: Planned Disposition: Correction Facility Primary Insurance: [facility] MEDICARE SOLUTIONS Discharge Planning Comments: [facility] WOULD NOT ACCEPT PATIENT BECUASE THEY ARE NOT IN NETWORK. FERNANDEZ CALLED JUAN M PRESLEY WITH [facility] TO SEE WHAT SNF ARE IN NETWORK. JUAN M NUMBER IS [phone]. LEFT MSG AND WAITING FOR CALL BACK. Manufacturing Storeperson: Ritu Asher Appended by Ritu Asher on 12/07/2018 16:28 CDT: PATIENT WANTS [facility]. SHE CALLED AND SAID SHE TALKED TO INSURANCE COMPANY AND THEY COVER [facility]. I CALLED JUA NM THE CM WITH [facility] AND LEFT HER A MSG ASKING IF SHE QUALIFIES FOR [facility]. WAITING FOR CALL BACK. DCP- Discharge Planning Updated by [id number]: Lorraine Garcia on 12/04/18 3:[address] Naima with [facility] returned call and states they are out of network with her insurance and she has no out of network benefits. I asked the patient for her second choice and she states she will need to do some research and speak with family and look up star ratings for the other skilled facilities. I instructed her to tell the nurse that she needs to speak with a casework supervisor when her decision is made. CM will continue to follow and assist with discharge planning/needs. DCP- Discharge Planning Updated by [id number]: Lorraine Garcia on 12/04/18 12:[address] OT/PT notes faxed to [facility]. I spoke with Naima, she will call to see if they are in Network. Patient states she has not had her scan yet today. I called radiology and spoke with Adwoa and informed her that Dr. Herndon has ordered it and it says it was cancelled due to being "rejected". Adwoa states she will look into it. CM will continue to follow and assist with discharge planning/needs. DCP- Discharge Planning Updated by [id number]: Lorraine Garcia on 12/04/18 11:[address] I called Angela at [facility] and clinical faxed. Awaiting a new PT eval and OT eval to send to [facility]. CM will continue to follow and assist with discharge planning/needs. DCP- Discharge Planning Updated by [id number]: Lorraine Garcia on 12/03/18 3:[address] Patient Name: ISABELA ADAMS Admission Status: ER Accout number: [id number] Admission Date: 11-30-2018 : 1955 Admission Diagnosis:OTH FRACTURE OF LEFT LOWER LEG, SUBS FOR CLOS FX W HAN Attending: NICOLETTE ANDERSEN Current LOS: 3 Anticipated DC Date: Planned Disposition: [facility] Facility Primary Insurance: [facility] MEDICARE SOLUTIONS Discharge Planning Comments: CM met with patient to complete initial dc planning assessment. CM educated patient on the CM role and verbal consent given by patient to complete assessment. Patient lives at home alone. She states she is independent with her care at home, except she no longer drives. States her daughter lives 2 houses down and drives her where she needs to go. CM discussed availability of home health, rehab services, and medical equipment. Patient states at discharge she would like to go to [facility]. She states that she has already checked with her insurance and she still has 20 days for SNF. I will send a referral tomorrow, since admission staff will not be there at this time. I did inform patient she will still need preauthorization from insurance prior to admission to a skilled facility, she voiced understanding. CM will continue to follow and will assist as needed with dc plans/needs. Manufacturing Storeperson: Lorraine Garcia DCPIA - Discharge Planning Initial Assessment Updated by [id number]: Lorraine Garcia on 12/03/18 4:54 pm * Is the patient Alert and Oriented? Yes * How many steps to enter\\exit or inside your home? 0/0 * PCP Dr. Scott * Preadmission Environment Home Alone * ADLs Partial Dependent * Partial ADLs (Assistance needed) Ambulation * Equipment Bedside Commode Glucometer Other Walker Wheelchair * Other Equipment Rollator walker * List name and contact numbers for known caregivers / representatives who currently or will assist patient after discharge: Pilar Mahansolitario [facility] - [phone] * Verbal permission to speak to the caregivers and representatives has been obtained from the patient. Yes * Community resources currently utilized [facility] * Please name any agencies selected above. [facility] * Additional services required to return to the preadmission environment? Yes * Can the patient safely return to the preadmission environment? Yes * Has this patient been hospitalized within the prior 30 days at any hospital? No Coverage Notice Reviewer: [id number] - Lorraine Garcia Notice Issued Date-Time: 12/03/2018 16:50 Notice Type: Patient Choice Letter Notice Delivered To: Patient Relationship to Patient: Self Consular Officer Name: Delivery Method: HAND - Hand Delivered Jada Days: Prior Verbal Notification: Recipient Understood Notice: Yes Recipient Signature: Yes Med Rec Note Co-signed by Attending: Coverage Notice Comment: ANDRAE for [facility] Last DP export: 12/08/18 1:44 p Patient Name: ISABELA ADAMS Page 48489 at 1452 All edits/amendments must be made on the electronic document DICTATION DATE: 12/08/181450 HEAVY COIL WINDER: VIKAS 12/08/181450 RPT#: [id number] DC DATE: STATUS: ADM IN [facility] [address] [place] [address] END OF REPORT
[2018-12-08 16:37] VITALS: BP 127/57
--- NOTE | 2018-12-08 20:00 | NUR ---
ASSESSMENT PER FLOWSHEET. IV SALINE LOCK TO RT ARM SITE CLEAR. LEFT FOOT SWOLLEN. BURN AREA TO LEFT LOWER ABDOMEN.
[2018-12-08 20:18] VITALS: BP 145/62
--- NOTE | 2018-12-08 22:00 | NUR ---
MEDS GIVEN PER MAR. TVMJ=494. 8 UNITS HUMALOG INSULIN GIVEN SUBC PER S/S
--- NOTE | 2018-12-08 23:54 | NUR ---
RESTING QUIETLY WILL BE NPO AFTER MN FOR SURGERY IN AM.
[2018-12-09 00:44] VITALS: BP 120/50
[2018-12-09 04:43] VITALS: BP 140/80
[2018-12-09 05:03] LABS: BASOPHILS 0.3 % (0-2); EOSINOPHILS 4.6 % (0-7); HEMOGLOBIN 10.8 g/dL (12-16); IMMATURE GRANULOCYTES 0.3 % (0-5); LYMPHOCYTES 17.6 % (15-50); MCH 27.3 pg (26.0-34.0); MCHC 32.7 g/dL (31.0-37.0); MCV 83.3 fL (80.0-100.0); MEAN PLATELET VOLUME 11.6 fL (7.4-10.4); NEUTROPHILS 68.2 % (40-80); PLATELET COUNT 213 10x3/uL (130-400); RBC 3.96 10x6/uL (4.00-5.40)
[2018-12-09 05:17] LABS: WBC 11.7 10x3/uL (4.8-10.8)
[2018-12-09 05:22] LABS: ALBUMIN 2.6 g/dL (3.4-5.0); ANION GAP 7.8 mmol/L (8-16); BILIRUBIN - TOTAL 0.25 mg/dL (0.2-1.3); CALCIUM 8.5 mg/dL (8.5-10.1); CARBON DIOXIDE 33.1 mmol/L (21.0-32.0); CREATININE - SERUM 0.9 mg/dL (0.6-1.3); POTASSIUM - SERUM 3.9 mmol/L (3.5-5.1); PROTEIN - SERUM 7.1 g/dL (6.4-8.2)
--- NOTE | 2018-12-09 06:30 | NUR ---
PRE OP MEDS GIVEN PER MAY. IV OF NS HUNG AT KVO RATE. TO SURGERY PER BED.
--- NOTE | 2018-12-09 08:15 | NUR ---
PREPPRED FROM [place] TO TOES LEFT CIRCUMFERENTIALLY
[2018-12-09 10:25] VITALS: BP 157/77
[2018-12-09 11:44] VITALS: BP 141/75
--- NOTE | 2018-12-09 14:19 | NUR ---
OT NOTE: PT DOING VERY WELL. VERY PLEASANT WITH POSITIVE ATTITUDE. WANTS TO GO TO REHAB SHE LIVES ALONE AND WILL BE UNABLE TO CARE FOR HERSELF AT THIS TIME. PT HAD SURGERY THIS AM..WAS ABLE TO PERFORM BED MOB WITH CGA; SIT TO STAND WITH MIN ASSIST AND WALKER WITH NWB L LE. ATTEMPTED TO HOP TO LEFT BUT WITH DIFFICULTY TODAY. PT PERFORMING ALL GROOMING AND FEEDING WITH SET UP BUT REQUIRES ASSIST WITH LE DRESSING AND TOILETING. CALVIN TAMAYO, OTR/L
--- NOTE | 2018-12-09 14:50 | NUR ---
OT NOTE: PT COMPLETED BED MOB WITH SBA. THANK YOU, KEVIN ROSADO
--- NOTE | 2018-12-09 14:58 | NUR ---
I have reviewed this patient and I concur with the Shift Assessment completed by the Licensed Practical Nurse today this shift.
--- NOTE | 2018-12-09 15:34 | NUR ---
PT CRYING IN PAIN STATES THAT SHE IS HURTING TOO DAMN BAD FOR JUST A PAIN PILL AND THAT I HAVE LOST MY EVER LOVING MIND AND I BETTER CALL DR BAPTISTE, CALLED DR BAPTISTE AND GIVEN ORDER FOR DILAUDID 0.5 ADMINISTERED AND PATIENT STATED STILL HURTING BAD, ADVISED TO ALLOW SOME TIME AND RELAX TO ALLOW MEDICATION TO WORK. CONTINUE WITH PLAN OF CARE
[2018-12-09 16:51] VITALS: BP 136/65
--- NOTE | 2018-12-09 17:38 | MORECARE ---
CASE MANAGEMENT DISCHARGE SUMMARY PATIENT: ISABELA ADAMS UNIT: [id number] ADM DATE: 11/30/18 AGE: 63 : 55 SEX: F ROOM/BED: D.2233 AUTHOR: PARKER,DOC PHYSICIAN: REFERRING PHYSICIAN: NICOLETTE ANDERSEN MD DATE OF SERVICE: 12/09/18 Discharge Plan Patient Name: ISABELA ADAMS Facility: [facility]:[place] : 1955 Planned Disposition: Nursing Home Facility Anticipated Discharge Date: Discharge Date: Expected LOS: Initial Reviewer: [id number] Initial Review Date: 12/03/2018 Generated: 12/09/18 6:37 pm Comments DCP- Discharge Planning Updated by [id number]: Ritu Asher on 12/09/18 4:[address] Patient Name: ISABELA ADAMS Admission Status: ER Accout number: [id number] Admission Date: 11-30-2018 : 1955 Admission Diagnosis:OTH FRACTURE OF LEFT LOWER LEG, SUBS FOR CLOS FX W HAN Attending: NICOLETTE ANDERSEN Current LOS: 9 Anticipated DC Date: Planned Disposition: Nursing Home Facility Primary Insurance: [employer] Discharge Planning Comments: PATIENT WOULD LIKE INPATIENT REHAB AT TIME OF DISCHARGE IF HER INSURANCE WILL APPROVE IT. Refinery Superintendent: Ritu Asher Appended by Ritu Asher on 12/09/2018 17:33 CDT: I JUST REALIZED [facility] IS ALREADY WORKING ON AN AUTH FOR SNF. I DON'T THINK HER INSURANCE WILL APPROVE FOR [facility]. CM WILL FOLLOW. DCP- Discharge Planning Updated by [id number]: Kerrie Smith on 12/08/18 1:[address] DC PLAN: Referral pending with [facility]. Received call from Antonia with [facility] rehab who stated they are out of network with patients insurance. [facility] and will await admission determination. Kerrie Smith RN, [facility] DCP- Discharge Planning Updated by [id number]: Kerrie Smith on 12/08/18 9:[address] DC PLAN: Referrals sent to [facility] Acute Inpatient or [facility] Nursing and Rehab. Cm met with patient and she is requesting Inpatient rehab at [facility] Acute Rehab or [facility]. CM has [employer] and will require authorization. ANDRAE presented, explained, and singed by patient for [facility] Rehab and [facility]. Patient's first choice is [facility] Rehab. Kerrie Smith RN, [facility] DCP- Discharge Planning Updated by [id number]: Ritu Lakeshia on 12/07/18 3:[address] Patient Name: ISABELA ADAMS Admission Status: ER Accout number: [id number] Admission Date: 11-30-2018 : 1955 Admission Diagnosis:OTH FRACTURE OF LEFT LOWER LEG, SUBS FOR CLOS FX W HAN Attending: NICOLETTE ANDERSEN Current LOS: 7 Anticipated DC Date: Planned Disposition: Nursing Home Facility Primary Insurance: [employer] Discharge Planning Comments: [facility] WOULD NOT ACCEPT PATIENT BECUASE THEY ARE NOT IN NETWORK. CM CALLED JUAN M PRESLEY WITH [facility] TO SEE WHAT SNF ARE IN NETWORK. JUAN M NUMBER IS [phone]. LEFT MSG AND WAITING FOR CALL BACK. Refinery Superintendent: Ritu Asher Appended by Ritu Asher on 12/07/2018 16:28 CDT: PATIENT WANTS [facility] INPATIENT REHAB FACILITY. SHE CALLED AND SAID SHE TALKED TO INSURANCE COMPANY AND THEY COVER [facility]. I CALLED JUAN M THE WITH [facility] AND LEFT HER A MSG ASKING IF SHE QUALIFIES FOR [facility]. WAITING FOR CALL BACK. DCP- Discharge Planning Updated by [id number]: Lorraine Garcia on 12/04/18 3:[address] Naima with [facility] returned call and states they are out of network with her insurance and she has no out of network benefits. I asked the patient for her second choice and she states she will need to do some research and speak with family and look up star ratings for the other skilled facilities. I instructed her to tell the nurse that she needs to speak with a case sealer when her decision is made. CM will continue to follow and assist with discharge planning/needs. DCP- Discharge Planning Updated by [id number]: Lorraine Greerrosamaria on 12/04/18 12:[address] OT/PT notes faxed to [facility]. I spoke with Naima, she will call to see if they are in Network. Patient states she has not had her scan yet today. I called radiology and spoke with Adwoa and informed her that Dr. Herndon has ordered it and it says it was cancelled due to being "rejected". Adwoa states she will look into it. CM will continue to follow and assist with discharge planning/needs. DCP- Discharge Planning Updated by [id number]: Lorraine Garcia on 12/04/18 11:[address] I called Angela at [facility] and clinical faxed. Awaiting a new PT eval and OT eval to send to [facility]. CM will continue to follow and assist with discharge planning/needs. DCP- Discharge Planning Updated by [email or web address]: Lorraine Garcia on 12/03/18 3:[address] Patient Name: ISABELA ADAMS Admission Status: ER Accout number: [id number] Admission Date: 11-30-2018 : 1955 Admission Diagnosis:OTH FRACTURE OF LEFT LOWER LEG, SUBS FOR CLOS STEVE W HAN Attending: NICOLETTE ANDERSEN Current LOS: 3 Anticipated DC Date: Planned Disposition: Nursing Home Facility Primary Insurance: [employer] Discharge Planning Comments: CM met with patient to complete initial dc planning assessment. CM educated patient on the CM role and verbal consent given by patient to complete assessment. Patient lives at home alone. She states she is independent with her care at home, except she no longer drives. States her daughter lives 2 houses down and drives her where she needs to go. CM discussed availability of home health, rehab services, and medical equipment. Patient states at discharge she would like to go to [facility] SNF. She states that she has already checked with her insurance and she still has 20 days for SNF. I will send a referral tomorrow, since admission staff will not be there at this time. I did inform patient she will still need preauthorization from insurance prior to admission to a skilled facility, she voiced understanding. CM will continue to follow and will assist as needed with dc plans/needs. Refinery Superintendent: Lorraine Garcia DCPIA - Discharge Planning Initial Assessment Updated by [id number]: Lorraine Garcia on 12/03/18 4:54 pm * Is the patient Alert and Oriented? Yes * How many steps to enter\\exit or inside your home? 0/0 * PCP Dr. Scott * Preadmission Environment Home Alone * ADLs Partial Dependent * Partial ADLs (Assistance needed) Ambulation * Equipment Bedside Commode Glucometer Other Walker Wheelchair * Other Equipment Rollator walker * List name and contact numbers for known caregivers / representatives who currently or will assist patient after discharge: Pilar Staton [facility] - [phone] * Verbal permission to speak to the caregivers and representatives has been obtained from the patient. Yes * Community resources currently utilized [facility] * Please name any agencies selected above. [facility] * Additional services required to return to the preadmission environment? Yes * Can the patient safely return to the preadmission environment? Yes * Has this patient been hospitalized within the prior 30 days at any hospital? No Coverage Notice Reviewer: [id number] Cain Garcia Notice Issued Date-Time: 12/03/2018 16:50 Notice Type: Patient Choice Letter Notice Delivered To: Patient Relationship to Patient: Self Ghost Writer Name: Delivery Method: HAND - Hand Delivered Jada Days: Prior Verbal Notification: Recipient Understood Notice: Yes Recipient Signature: Yes Med Rec Note Co-signed by Attending: Coverage Notice Comment: ANDRAE for [facility] DP export: 12/08/18 1:52 p Patient Name: ISABELA ADAMS Page [id number] at 1738 All edits/amendments must be made on the electronic document DICTATION DATE: 12/09/181736 MOLD PULLER: VIKAS 12/09/181736 RPT#: [id number] DC DATE: STATUS: ADM IN [facility] [address] [place] [address] END OF REPORT
--- NOTE | 2018-12-09 20:00 | NUR ---
ASSESSMENT PER FLOWSHEET. SPLINT CAST TO LEFT FOOT C/D/I. IV PATENT LEFT HAND OF NS AT 30CC'S/HR SALINE LOCK TO RT FOREARM INTACT SITES X3 PATENT. BURN AREA NOTED TO LEFT LOWER ABDOMEN.
--- NOTE | 2018-12-09 21:15 | NUR ---
MEDS GIVEN PER MAY.XQBK=[id number]. HUMALOG INSULIN 2 UNITS GIVEN PER S/S PLUS 20 UNITS ORDERED. PT ALSO TAKES OWN HOME MED INSULIN 56 UNITS PRESCRIBED.
--- NOTE | 2018-12-10 00:44 | NUR ---
C/O INCISIONAL PAIN LEFT FOOT. RATES PAIN LEVEL 8-9. DILAUDID 0.5MG IVPS GIVEN FOR PAIN CONTROL.
--- NOTE | 2018-12-10 03:04 | NUR ---
RESTING QUIETLY DENIES NEEDS.
--- NOTE | 2018-12-10 06:00 | NUR ---
[id number]. HUMALOG 2 UNITS PLUS 20 UNITS PRESCRIBED PRIOR TO MEALS.
[2018-12-10 06:12] LABS: BASOPHILS 0.3 % (0-2); EOSINOPHILS 2.8 % (0-7); HEMATOCRIT 34.9 % (36.0-48.0); HEMOGLOBIN 11.1 g/dL (12-16); IMMATURE GRANULOCYTES 0.5 % (0-5); LYMPHOCYTES 14.2 % (15-50); MCH 27.3 pg (26.0-34.0); MCHC 31.8 g/dL (31.0-37.0); MEAN PLATELET VOLUME 12.1 fL (7.4-10.4); MONOCYTES 10.4 % (2-11); NEUTROPHILS 71.8 % (40-80); RBC 4.07 10x6/uL (4.00-5.40); RDW 16.7 % (11.5-14.5)
[2018-12-10 06:13] LABS: MCV 85.7 fL (80.0-100.0); PLATELET COUNT 129 10x3/uL (130-400); WBC 17.1 10x3/uL (4.8-10.8)
[2018-12-10 06:20] LABS: ALBUMIN 2.8 g/dL (3.4-5.0); BILIRUBIN - TOTAL 0.67 mg/dL (0.2-1.3); CARBON DIOXIDE 26.9 mmol/L (21.0-32.0)
[2018-12-10 06:24] LABS: ANION GAP 14.9 mmol/L (8-16); CREATININE - SERUM 1.2 mg/dL (0.6-1.3)
[2018-12-10 06:25] LABS: POTASSIUM - SERUM 4.8 mmol/L (3.5-5.1)
--- NOTE | 2018-12-10 09:01 | NUR ---
PATIENT AWAKE. NO NEEDS AT THIS TIME. CL IN REACH. WCTM.
[2018-12-10 09:26] VITALS: BP 130/78
--- NOTE | 2018-12-10 11:31 | NUR ---
PATIENT HAVING SOB AFTER COMING BACK FROM THE BATHROOM. SATING 95-97% ON PULSE OX. CL IN REACH. TAKING SLOW DEEP BREATHS. NO NEEDS AT THIS TIME.
[2018-12-10 11:49] LABS: BASOPHILS 0.2 % (0-2); EOSINOPHILS 2.6 % (0-7); HEMATOCRIT 31.8 % (36.0-48.0); HEMOGLOBIN 10.4 g/dL (12-16); IMMATURE GRANULOCYTES 0.3 % (0-5); MCH 27.7 pg (26.0-34.0); MCHC 32.7 g/dL (31.0-37.0); MCV 84.6 fL (80.0-100.0); MEAN PLATELET VOLUME 11.6 fL (7.4-10.4); MONOCYTES 7.9 % (2-11); RBC 3.76 10x6/uL (4.00-5.40); RDW 16.2 % (11.5-14.5); WBC 17.8 10x3/uL (4.8-10.8)
[2018-12-10 11:50] LABS: PLATELET COUNT 211 10x3/uL (130-400)
[2018-12-10 12:48] VITALS: BP 122/94
--- NOTE | 2018-12-10 13:17 | MORECARE ---
CASE MANAGEMENT DISCHARGE SUMMARY PATIENT: ISABELA ADAMS UNIT: [id number] ADM DATE: 11/30/18 AGE: 63 : 55 SEX: F ROOM/BED: D.2233 AUTHOR: SUE CANALES PHYSICIAN: REFERRING PHYSICIAN: NICOLETTE ANDERSEN MD DATE OF SERVICE: 12/10/18 Discharge Plan Patient Name: ISABELA ADAMS Facility: [facility]:[place] : 1955 Planned Disposition: Long-Term Facility Anticipated Discharge Date: Discharge Date: Expected LOS: Initial Reviewer: [id number] Initial Review Date: 12/03/2018 Generated: 12/10/18 2:17 pm Comments DCP- Discharge Planning Updated by [id number]: Ritu Asher on 12/10/18 12:[address] Patient Name: ISABELA ADAMS Admission Status: ER Accout number: [id number] Admission Date: 11-30-2018 : 1955 Admission Diagnosis:OTH FRACTURE OF LEFT LOWER LEG, SUBS FOR CLOS FX W HAN Attending: NICOLETTE ANDERSEN Current LOS: 10 Anticipated DC Date: Planned Disposition: Long-Term Facility Primary Insurance: [facility] MED[employer] SOLUTIONS Discharge Planning Comments: [facility] CAN ACCEPT PATIENT TOMORROW IF MEDICALLY STABLE. CM TO FOLLOW. Youth Teacher: Ritu Asher DCP- Discharge Planning Updated by [email or web address]: Ritu Asher on 12/09/18 4:[address] Patient Name: ISABELA ADAMS Admission Status: ER Accout number: [id number] Admission Date: 11-30-2018 : 1955 Admission Diagnosis:OTH FRACTURE OF LEFT LOWER LEG, SUBS FOR CLOS FX W HAN Attending: NICOLETTE ANDERSEN Current LOS: 9 Anticipated DC Date: Planned Disposition: Long-Term Facility Primary Insurance: [facility] [employer] Discharge Planning Comments: PATIENT WOULD LIKE INPATIENT REHAB AT TIME OF DISCHARGE IF HER INSURANCE WILL APPROVE IT. Youth Teacher: Ritu Asher Appended by Ritu Asher on 12/09/2018 17:33 CDT: I JUST REALIZED [facility] IS ALREADY WORKING ON AN AUTH FOR SNF. I DON'T THINK HER INSURANCE WILL APPROVE FOR HER TO GO TO [facility]. CM WILL FOLLOW. DCP- Discharge Planning Updated by [id number]: Kerrie Smith on 12/08/18 1:[address] DC PLAN: Referral pending with [facility]. Received call from Antonia with [facility] rehab who stated they are out of network with patients insurance. [facility] and will await admission determination. Kerrie Smith RN, [facility] DCP- Discharge Planning Updated by [id number]: Kerrie Smith on 12/08/18 9:[address] DC PLAN: Referrals sent to [facility] Acute Inpatient or [facility] Nursing and Rehab. Cm met with patient and she is requesting Inpatient rehab at [facility] Acute Rehab or [facility]. CM has [facility] Medicare Solutions and will require authorization. ANDRAE presented, explained, and singed [facility] and [facility]. Patient's first choice is [facility] Rehab. Kerrie Smith RN, [facility] DCP- Discharge Planning Updated by [id number]: Ritu Asher on 12/07/18 3:[address] Patient Name: ISABELA ADAMS Admission Status: ER Accout number: [id number] Admission Date: 11-30-2018 : 1955 Admission Diagnosis:OTH FRACTURE OF LEFT LOWER LEG, SUBS FOR MARIUSZ SHORT Attending: NICOLETTE ANDERSEN Current LOS: 7 Anticipated DC Date: Planned Disposition: Long-Term Facility Primary Insurance: [facility] [employer] Discharge Planning Comments: [facility] WOULD NOT ACCEPT PATIENT BECUASE THEY ARE NOT IN NETWORK. CALLED JUAN M PRESLEY WITH [facility] TO SEE WHAT SNF ARE IN NETWORK. JUAN M NUMBER IS [phone]. LEFT MSG AND WAITING FOR CALL BACK. Youth Teacher: Ritu Asher Appended by Ritu Asher on 12/07/2018 16:28 CDT: PATIENT WANTS [facility] INPATIENT REHAB FACILITY. SHE CALLED AND SAID SHE TALKED TO INSURANCE COMPANY AND THEY COVER [facility]. I CALLED JUAN M THE WITH [facility] AND LEFT HER A MSG ASKING IF SHE QUALIFIES FOR [facility]. WAITING FOR CALL BACK. DCP- Discharge Planning Updated by [id number]: Lorraine Radha on 12/04/18 3:[address] Naima with [facility] returned call and states they are out of network with her insurance and she has no out of network benefits. I asked the patient for her second choice and she states she will need to do some research and speak with family and look up star ratings for the other skilled facilities. I instructed her to tell the nurse that she needs to speak with a correctional counselor/case manager when her decision is made. CM will continue to follow and assist with discharge planning/needs. DCP- Discharge Planning Updated by [id number]: Lorraine Garcia on 12/04/18 12:[address] OT/PT notes faxed to [facility]. I spoke with Naima, she will call to see if they are in Network. Patient states she has not had her scan yet today. I called radiology and spoke with Adwoa and informed her that Dr. Herndon has ordered it and it says it was cancelled due to being "rejected". Adwoa states she will look into it. CM will continue to follow and assist with discharge planning/needs. DCP- Discharge Planning Updated by [id number]: Lorraine Garcia on 12/04/18 11:[address] I called Angela at [facility] and clinical faxed. Awaiting a new PT eval and OT eval to send to [facility]. CM will continue to follow and assist with discharge planning/needs. DCP- Discharge Planning Updated by [id number]: Lorraine Garcia on 12/03/18 3:[address] Patient Name: ISABELA ADAMS Admission Status: ER Accout number: [id number] Admission Date: 11-30-2018 : 1955 Admission Diagnosis:OTH FRACTURE OF LEFT LOWER LEG, SUBS FOR CLOS FX W HAN Attending: NICOLETTE ANDERSEN Current LOS: 3 Anticipated DC Date: Planned Disposition: Long-Term Facility Primary Insurance: [facility] [employer] Discharge Planning Comments: CM met with patient to complete initial dc planning assessment. CM educated patient on the CM role and verbal consent given by patient to complete assessment. Patient lives at home alone. She states she is independent with her care at home, except she no longer drives. States her daughter lives 2 houses down and drives her where she needs to go. CM discussed availability of home health, rehab services, and medical equipment. Patient states at discharge she would like to go to [facility]. She states that she has already checked with her insurance and she still has 20 days for SNF. I will send a referral tomorrow, since admission staff will not be there at this time. I did inform patient she will still need preauthorization from insurance prior to admission to a skilled facility, she voiced understanding. CM will continue to follow and will assist as needed with dc plans/needs. Youth Teacher: Lorraine Greerrosamaria DCPIA - Discharge Planning Initial Assessment Updated by [id number]: Lorraine Radha on 12/03/18 4:54 pm * Is the patient Alert and Oriented? Yes * How many steps to enter\\exit or inside your home? 0/0 * PCP Dr. Scott * Preadmission Environment Home Alone * ADLs Partial Dependent * Partial ADLs (Assistance needed) Ambulation * Equipment Bedside Commode Glucometer Other Walker Wheelchair * Other Equipment Rollator walker * List name and contact numbers for known caregivers / representatives who currently or will assist patient after discharge: Pilar Staton [facility] - [phone] * Verbal permission to speak to the caregivers and representatives has been obtained from the patient. Yes * Community resources currently utilized [facility] * Please name any agencies selected above. [facility] * Additional services required to return to the preadmission environment? Yes * Can the patient safely return to the preadmission environment? Yes * Has this patient been hospitalized within the prior 30 days at any hospital? No Coverage Notice Reviewer: [id number] - Lorraine Radha Notice Issued Date-Time: 12/03/2018 16:50 Notice Type: Patient Choice Letter Notice Delivered To: Patient Relationship to Patient: Self Enterprise Security Architect Name: Delivery Method: HAND - Hand Delivered Jada Days: Prior Verbal Notification: Recipient Understood Notice: Yes Recipient Signature: Yes Med Rec Note Co-signed by Attending: Coverage Notice Comment: ANDRAE for [facility] DP export: 12/09/18 4:37 p Patient Name: ISABELA ADAMS Page 53433 at 1317 All edits/amendments must be made on the electronic document DICTATION DATE: 12/10/181316 CATALYST IMPREGNATOR: VIKAS 12/10/181316 RPT#: [id number] DC DATE: STATUS: ADM IN [facility] [address] [place] [address] END OF REPORT
--- NOTE | 2018-12-10 13:30 | NUR ---
Nutrition follow-up: Diet advanced to consistent CHO post surgery PO intake not recorded Labs reviewed WT: 251# RDN following.
[2018-12-10 16:29] VITALS: BP 102/59
--- NOTE | 2018-12-10 19:30 | NUR ---
PATIENT ASLEEP IN BED. PATIENT AROUSES TO VOICE AND ANSWERS QUESTIONS. TOLD PATIENT TO COLLECT URINE IN HAT FOR URINE SPECIMIN NEXT TIME SHE GOES TO RESTROOM. ENCOURAGED TO CALL WITH NEEDS. CALL LIGHT AND TABLE WITHIN REACH.
[2018-12-10 20:58] VITALS: BP 130/65
[2018-12-11 01:31] VITALS: BP 121/61
[2018-12-11 03:07] LABS: APPEARANCE CLEAR (CLEAR); BILIRUBIN NEGATIVE (NEGATIVE); COLOR YELLOW (YELLOW); GLUCOSE NEGATIVE (NEGATIVE); KETONE NEGATIVE (NEGATIVE); NITRITE NEGATIVE (NEGATIVE); PROTEIN NEGATIVE (NEGATIVE); SPECIFIC GRAVITY 1.015 (1.005-1.020); UROBILINOGEN NORMAL (NORMAL)
[2018-12-11 05:54] VITALS: BP 117/41
[2018-12-11 07:07] LABS: ALBUMIN 2.7 g/dL (3.4-5.0); BILIRUBIN - TOTAL 0.49 mg/dL (0.2-1.3); CALCIUM 8.4 mg/dL (8.5-10.1); CARBON DIOXIDE 30.7 mmol/L (21.0-32.0); CREATININE - SERUM 1.1 mg/dL (0.6-1.3); PROTEIN - SERUM 7.2 g/dL (6.4-8.2)
[2018-12-11 07:09] LABS: ANION GAP 10.1 mmol/L (8-16); POTASSIUM - SERUM 3.8 mmol/L (3.5-5.1)
[2018-12-11 07:34] LABS: BASOPHILS 0.3 % (0-2); EOSINOPHILS 3.1 % (0-7); HEMATOCRIT 30.7 % (36.0-48.0); HEMOGLOBIN 9.9 g/dL (12-16); IMMATURE GRANULOCYTES 0.3 % (0-5); LYMPHOCYTES 14.2 % (15-50); MCH 27.2 pg (26.0-34.0); MCHC 32.2 g/dL (31.0-37.0); MCV 84.3 fL (80.0-100.0); MONOCYTES 10.5 % (2-11); NEUTROPHILS 71.6 % (40-80); PLATELET COUNT 188 10x3/uL (130-400); RBC 3.64 10x6/uL (4.00-5.40); RDW 16.1 % (11.5-14.5); WBC 14.2 10x3/uL (4.8-10.8)
[2018-12-11 09:28] VITALS: BP 124/54
[2018-12-11] MEDS ORDERED: PROTONIX40 MG PO (10:41)
[2018-12-11] MEDS ORDERED: FLUTICASONE PRO16 GM NASAL (10:41)
[2018-12-11] MEDS ORDERED: ELIQUIS2.5 MG PO (12:00)
[2018-12-11] MEDS ORDERED: OXYCODONE HCL5 M1 PO (12:00)
[2018-12-11 12:32] VITALS: BP 123/57
--- NOTE | 2018-12-11 13:16 | NUR ---
PATIENT IV THERAPY DC'ED FROM LEFT HAND TIP INTACT AND FROM RIGHT FOREARM TIP INTACT. PATIENT IN THE SHOWER. WAITING ON BREAD AND PASTRY BAKER
--- NOTE | 2018-12-11 16:18 | MORECARE ---
CASE MANAGEMENT DISCHARGE SUMMARY PATIENT: ISABELA ADAMS UNIT: [id number] ADM DATE: 11/30/18 AGE: 63 : 55 SEX: F ROOM/BED: D.2233 AUTHOR: SUE CANALES PHYSICIAN: REFERRING PHYSICIAN: NICOLETTE ANDERSEN MD DATE OF SERVICE: 12/11/18 Discharge Plan Patient Name: ISABELA ADAMS Facility: [facility]:[place] : 1955 Planned Disposition: Detention Facility Anticipated Discharge Date: Discharge Date: 12/11/2018 Expected LOS: Initial Reviewer: [email or web address] Initial Review Date: 12/03/2018 Generated: 12/11/18 5:18 pm Comments DCP- Discharge Planning Updated by [email or web address]: Ritu Asher on 12/10/18 12:[address] Patient Name: ISABELA ADAMS Admission Status: ER Accout number: [id number] Admission Date: 11-30-2018 : 1955 Admission Diagnosis:OTH FRACTURE OF LEFT LOWER LEG, SUBS FOR CLOS FX W HAN Attending: NICOLETTE ANDERSEN Current LOS: 10 Anticipated DC Date: Planned Disposition: Detention Facility Primary Insurance: [facility] MEDICARE SOLUTIONS Discharge Planning Comments: [facility] CAN ACCEPT PATIENT TOMORROW IF MEDICALLY STABLE. CM TO FOLLOW. Seismic Plotter: Ritu Asher DCP- Discharge Planning Updated by [email or web address]: Ritu Asher on 12/09/18 4:[address] Patient Name: ISABELA ADAMS Admission Status: ER Accout number: [id number] Admission Date: 11-30-2018 : 1955 Admission Diagnosis:OTH FRACTURE OF LEFT LOWER LEG, SUBS FOR CLOS FX W HAN Attending: NICOLETTE ANDERSEN Current LOS: 9 Anticipated DC Date: Planned Disposition: Detention Facility Primary Insurance: [facility] MEDICARE SOLUTIONS Discharge Planning Comments: PATIENT WOULD LIKE INPATIENT REHAB AT TIME OF DISCHARGE IF HER INSURANCE WILL APPROVE IT. Seismic Plotter: Ritu Asher Appended by Ritu Asher on 12/09/2018 17:33 CDT: I JUST REALIZED [facility] IS ALREADY WORKING ON AN AUTH FOR SNF. I DON'T THINK HER INSURANCE WILL APPROVE FOR HER TO GO TO IPREHAB. CM WILL FOLLOW. DCP- Discharge Planning Updated by [email or web address]: Kerrie Smith on 12/08/18 1:[address] DC PLAN: Referral pending with [facility]. Received call from Antonia with [facility] rehab who stated they are out of network with patients insurance. [facility] fax[facility] to [facility] and will await admission determination. Kerrie Smith RN, [facility] DCP- Discharge Planning Updated by [email or web address]: Kerrie Smith on 12/08/18 9:[address] DC PLAN: Referrals sent to [facility] Acute Inpatient or [facility]. Cm met with patient and she is requesting Inpatient rehab at [facility] Acute Re[facility] or [facility]. CM has [facility] Medicare Solutions and will require authorization. ANDRAE presented, explained, and singed by patient for [facility] and [facility]. Patient's first choice is [facility] Rehab. Kerrie Smith RN, [facility] DCP- Discharge Planning Updated by [email or web address]: Ritu Asher on 12/07/18 3:[address] Patient Name: ISABELA ADAMS Admission Status: ER Accout number: [id number] Admission Date: 11-30-2018 : 1955 Admission Diagnosis:OTH FRACTURE OF LEFT LOWER LEG, SUBS FOR MARIUSZ SHORT Attending: NICOLETTE ANDERSEN Current LOS: 7 Anticipated DC Date: Planned Disposition: Detention Facility Primary Insurance: [facility] MEDICARE SOLUTIONS Discharge Planning Comments: [facility] WOULD NOT ACCEPT PATIENT BECUASE THEY ARE NOT IN NETWORK. CALLED JUAN M PRESLEY WITH [facility] TO SEE WHAT SNF ARE IN NETWORK. JUAN M NUMBER IS [phone]. LEFT MSG AND WAITING FOR CALL BACK. Seismic Plotter: Ritu Asher Appended by Ritu Asher on 12/07/2018 16:28 CDT: PATIENT WANTS [facility] INPATIENT REHAB FACILITY. SHE CALLED AND SAID SHE TALKED TO INSURANCE COMPANY AND THEY COVER [facility]. I CALLED JUAN M THE FERNANDEZ WITH [facility] AND LEFT HER A MSG ASKING IF SHE QUALIFIES FOR [facility] IPR. WAITING FOR CALL BACK. DCP- Discharge Planning Updated by [email or web address]: Lorraine Radha on 12/04/18 3:[address] Naima with [facility] returned call and states they are out of network with her insurance and she has no out of network benefits. I asked the patient for her second choice and she states she will need to do some research and speak with family and look up star ratings for the other skilled facilities. I instructed her to tell the nurse that she needs to speak with a foster care case manager when her decision is made. CM will continue to follow and assist with discharge planning/needs. DCP- Discharge Planning Updated by [email or web address]: Lorraine Garcia on 12/04/18 12:[address] OT/PT notes faxed to [facility]. I spoke with Naima, she will call to see if they are in Network. Patient states she has not had her scan yet today. I called radiology and spoke with Adwoa and informed her that Dr. Herndon has ordered it and it says it was cancelled due to being "rejected". Adwoa states she will look into it. CM will continue to follow and assist with discharge planning/needs. DCP- Discharge Planning Updated by [id number]: Lorraine Garcia on 12/04/18 11:[address] I called Angela at [facility] and clinical faxed. Awaiting a new PT eval and OT eval to send to [facility]. CM will continue to follow and assist with discharge planning/needs. DCP- Discharge Planning Updated by [email or web address]: Lorraine Garcia on 12/03/18 3:[address] Patient Name: ISABELA ADAMS Admission Status: ER Accout number: [id number] Admission Date: 11-30-2018 : 1955 Admission Diagnosis:OTH FRACTURE OF LEFT LOWER LEG, SUBS FOR MARIUSZ SHORT Attending: NICOLETTE ANDERSEN Current LOS: 3 Anticipated DC Date: Planned Disposition: Detention Facility Primary Insurance: [facility] MEDICARE SOLUTIONS Discharge Planning Comments: CM met with patient to complete initial dc planning assessment. CM educated patient on the CM role and verbal consent given by patient to complete assessment. Patient lives at home alone. She states she is independent with her care at home, except she no longer drives. States her daughter lives 2 houses down and drives her where she needs to go. CM discussed availability of home health, rehab services, and medical equipment. Patient states at discharge she would like to go to [facility] SNF. She states that she has already checked with her insurance and she still has 20 days for SNF. I will send a referral tomorrow, since admission staff will not be there at this time. I did inform patient she will still need preauthorization from insurance prior to admission to a skilled facility, she voiced understanding. CM will continue to follow and will assist as needed with dc plans/needs. Seismic Plotter: Lorraine Greerrosamaria DCPIA - Discharge Planning Initial Assessment Updated by [id number]: Lorraine Radha on 12/03/18 4:54 pm * Is the patient Alert and Oriented? Yes * How many steps to enter\\exit or inside your home? 0/0 * PCP Dr. Scott * Preadmission Environment Home Alone * ADLs Partial Dependent * Partial ADLs (Assistance needed) Ambulation * Equipment Bedside Commode Glucometer Other Walker Wheelchair * Other Equipment Rollator walker * List name and contact numbers for known caregivers / representatives who currently or will assist patient after discharge: Pilar Staton [facility] - [phone] * Verbal permission to speak to the caregivers and representatives has been obtained from the patient. Yes * Community resources currently utilized [facility] * Please name any agencies selected above. [facility] * Additional services required to return to the preadmission environment? Yes * Can the patient safely return to the preadmission environment? Yes * Has this patient been hospitalized within the prior 30 days at any hospital? No Coverage Notice Reviewer: [email or web address] - Lorraine Radha Notice Issued Date-Time: 12/03/2018 16:50 Notice Type: Patient Choice Letter Notice Delivered To: Patient Relationship to Patient: Self Lead Ramp Agent Name: Delivery Method: HAND - Hand Delivered Jada Days: Prior Verbal Notification: Recipient Understood Notice: Yes Recipient Signature: Yes Med Rec Note Co-signed by Attending: Coverage Notice Comment: ANDRAE for [facility] DP export: 12/10/18 12:17 p Patient Name: ISABELA ADAMS Page [id number] at 1618 All edits/amendments must be made on the electronic document DICTATION DATE: 12/11/181617 PLANT ANATOMIST: VIKAS 12/11/181617 RPT#: [id number] DC DATE:12/11/18 STATUS: DIS IN [facility] [address] [place] [address] END OF REPORT
--- NOTE | 2018-12-16 14:45 | OP ---
PATIENT NAME: ISABELA ADAMS MEDICAL RECORD: [id number] :55 LOCATION: D.2233 ADMISSION DATE:11/30/18 SURGEON: CHRIST BAPTISTE, DATE OF OPERATION: 12/09/2018 PROCEDURE: ORIF of the posterior malleolus ankle malunion with application of a short leg splint. 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 INDICATIONS: Ms. Romero is a 63-year-old female who in March had a trimalleolar fracture of her ankle. She had bimalleolar fixation and her ankle kept swelling and was getting swollen and red. She is a very brittle diabetic. I informed her at that point, this was then June, she has had elevated labs, that we had to pull the hardware out and take biopsies of the bone and cultures of the wound to ensure it was not infected as the fracture looked like it was pretty well healed. She was okay with that at that time and underwent a hardware removal and cultures. The cultures were negative for any infection. She then progressed to weightbearing and she started weightbearing and started to have more pain and swelling. X-rays were done and seen to have the displaced posterior mal, which was not as large as the original fracture, unknown when that displaced and showed a callus formation in the posterior mal and the ankle was actually subluxed somewhat posteriorly. The CT was done, which showed Charcot versus infection. Two bone scans were done, one was a white blood cell and the other one was a colloid scan, which were both negative for infection. 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 The patient was okay with that and preferred to not undergo the fusion right now and would rather have the plate put on. I informed her she will be nonweightbearing for 6 weeks and she will need probably to go to rehabilitation and the fact that she lives alone, does not help. She was okay with that as well as aware of the fact that it may be infected or have the chance of infection, blood clots, need for further surgery, eventual fusion and even . She was okay with those risks and continued ankle pain and swelling and she signed the consent. SURGEON: Christ Baptiste DO DESCRIPTION OF PROCEDURE: The patient received a block by anesthesia in the preoperative area and taken to the operative suite, laid in the right lateral decubitus position with the left side up. Axillary roll was placed. She was given 2 grams of Ancef, sedated, and LMA was placed. The left lower extremity was then prepped and draped in sterile fashion. A timeout was performed and everyone was in agreement with the correct side, site, patient and procedure. The incision was then marked out over the prior lateral incision and a 15-blade was used to dissect down to the fibula. The left lower extremity was exsanguinated with an Esmarch, tourniquet was inflated to 250 mmHg, was up for 31 minutes prior to the incision. The dissection then went around posterior to the peroneal tendons and the FHL was taken off of and protected exposing the posterior tibial. Once the posterior tibia was exposed, the tourniquet was let down as this was a venous tourniquet and the bleeding resolved. The malunion OPERATIVE REPORT [id number] ISABELA ADAMS fracture site was then taken down. The callus was removed and a reduction was made of what we could, what was left of the joint. The Acumed plate, posterior malleolus plate was then placed. Once it was in good position, we put an axilla screw through to suck the plate down and then 3 distal screws that were variable lock and locked into the plate. Then, 2 proximal screws were used and sucked the plate down to the bone very nicely, had good reduction, reduced somewhat the joint better, it was better than it was. It certainly improved, then some of the screws were replaced, one with a locking screw, the other one with a shorter screw as this appeared to be a little long on the lateral. AP and lateral were then done. When everything was in satisfactory position, the site was then irrigated. The peroneal tendon sheath was closed with #1 Vicryl in a simple fashion and skin was closed with 2-0 Vicryl in inverted interrupted fashion and ZipLine was placed on the incision site. Adaptic, 4 x 4s, ABD was then placed over the incision and on the heel. This was secured in place with the cast padding. A 4 x 30 splint was then placed posteriorly on the ankle and the patient was awakened and taken to recovery. The splint was secured with 6-inch Zana wrap and taken to recovery in stable condition. Blood loss was approximately 200 mL. COMPLICATIONS: None. TRANSINT:[id number] Voice Confirmation ID: [id number] DOCUMENT ID: [id number] 12/16/2018 Edited for account number, dmm. CHRIST BAPTISTE DO at 1445 CC: [id number] DICTATION DATE: 12/09/18 1003 GAUGE MAKER APPRENTICE: 12/09/18 1137 DIS IN 12/11/18 [id number] [place] [address]
== END 2018-12-11 15:17 | disposition home or self-care (01) | DRG 492 ==
LOC: D.ER 09:42 → D.MS 17:30
PROVIDERS: Emergency Medicine; Family Medicine; Orthopaedic Surgery; ADMIT Internal Medicine Nephrology; ATTEND Internal Medicine Nephrology
PROC: 0QSH04Z Reposition Left Tibia with Internal Fixation Device, Open Approach (ICD-10-PCS; principal; 2018-12-09 14:15)
DX: S82.892P Other fracture of left lower leg, subsequent encounter for closed fracture with malunion (principal); I50.33 Acute on chronic diastolic (congestive) heart failure; M79.89 Other specified soft tissue disorders; E11.9 Type 2 diabetes mellitus without complications; I11.0 Hypertensive heart disease with heart failure; I07.1 Rheumatic tricuspid insufficiency

== ENCOUNTER 2020-07-11 06:26 | Inpatient (IN) | payer MEDICARE ==
[~2020-07-11] VITALS: Ht 160 cm; Wt 119.5 kg
[2020-07-11] VITALS (10 sets, daily range): BP systolic 100–149; BP diastolic 54–100; Ht 160 cm; Wt 119.5 kg
[~2020-07-11 06:26] MED LIST changes: +ALBUTEROL SULF8.5 GM INH; +COLESTID1 GM PO; +FLUTICASONE PRO16 GM NASAL; +PROTONIX40 MG PO; +SIMBRINZA 1%-0.28 ML
[2020-07-11 06:55] LABS: BASOPHILS 0.5 % (0-2); EOSINOPHILS 1.3 % (0-7); HEMATOCRIT 39.6 % (36.0-48.0); HEMOGLOBIN 12.7 g/dL (12-16); IMMATURE GRANULOCYTES 0.3 % (0-5); LYMPHOCYTE ABS# 2.54 10x3/uL (1.18-3.74); LYMPHOCYTES 20.2 % (15-50); MCH 27.9 pg (26.0-34.0); MCHC 32.1 g/dL (31.0-37.0); MEAN PLATELET VOLUME 12.1 fL (7.4-10.4); MONOCYTES 8.6 % (2-11); NEUTROPHIL ABS# 8.69 10x3/uL (1.56-6.13); NEUTROPHILS 69.1 % (40-80); RBC 4.55 10x6/uL (4.00-5.40); RDW 15.4 % (11.5-14.5); WBC 12.6 10x3/uL (4.8-10.8)
[2020-07-11 07:14] LABS: ANION GAP 12.4 mmol/L (8-16); CALCIUM 9.4 mg/dL (8.5-10.1); CREATININE - SERUM 1.1 mg/dL (0.6-1.3); POTASSIUM - SERUM 3.4 mmol/L (3.5-5.1)
[2020-07-11 07:19] LABS: PLATELET COUNT 275 10x3/uL (130-400)
[2020-07-11] MEDS ORDERED: JARDIANCE25 MG PO (08:39)
--- NOTE | 2020-07-11 09:30 | NUR ---
0915 ASSISSTED UP TO BR, VOIDS QS, PT. IS AMBULATORY ON HER ANKLE. STATES HAS A WALKER, WHEELCHAIR AND SCOOTER AT HOME.
--- NOTE | 2020-07-11 16:40 | MORECARE ---
CASE MANAGEMENT DISCHARGE SUMMARY PATIENT: ISABELA ADAMS UNIT: [id number] ADM DATE: 07/11/20 AGE: 64 : 55 SEX: F ROOM/BED: D.1210 AUTHOR: PARKER,SUE PHYSICIAN: REFERRING PHYSICIAN: CHRIST BAPTISTE DO DATE OF SERVICE: 07/11/20 Case Management Discharge Planning Summary COMMENTS ENTERED DATE: 07/11/20 16:35 CT COMMENT TYPE: Discharge Planning REVIEWER: Aniket Resenidz [facility]. CM met with patient to complete DC plan and to evaluate needs. Patient lived alone with minimal family support. Her daughter has been identified as her person to notify, Federica Garcia, . Patient stated that her home is safe and has electricity and running water. Patient stated that the home has multiple steps to enter and she is unable to manage the steps without assistance. Patient stated that she has no problems paying for medications and she fills her medications at [facility]. Patient stated that her primary care physician is Dr. Tomas Scott. CM discussed availability of home health, rehab services, and medical equipment. Patient declined HHS, IPR, and DME. Patient stated that she would like to go to [facility] for rehabilitation. Spoke with Alejandra at [facility]. Alejandra stated that the patient's insurance would have to authorize and they will need both OT and PT notes. ANDRAE signed and placed on chart. Patient stated that she has a rollator, Wheelchair, and scooter. Patient voiced no other needs at this time and is satisfied with DC plan. H&P, Facesheet, and Post Op notes faxed to [phone]. DC IMM delivered, explained, signed by the patient, and placed in chart. Signed form also left with the patient. CM will continue to follow and will assist as needed with dc plans/needs. DCP REVIEW SUMMARY ANTICIPATED D/C DATE: EXPECTED LOS : CASE STATUS: DCP Initiated INITIAL REVIEW: 07/11/2020 INITIAL REVIEWER: Aniket Resendiz FINAL DISCHARGE DISPOSITION: : FINAL REVIEWER: FINAL REVIEW DATE: DCP Focus Questions & Answers DCP Evaluation QUESTION: ANSWER Patient and/or caregiver agree upon recommended discharge plan? : Yes Family / Caregiver's ability to cope with chronic illness: : a. Adequate (ability to meet patient's medical needs, ensures patient attends medical appts.) Patient's current cognitive status: : *Oriented to person, place, situation, time and present Patient's ability to cope with chronic illness : d. No chronic illness Patient gives permission to discuss discharge plans with: (name, relationship and number) : daughterFederica, Does the patient have the ability to pay for or attain post discharge needs / services? : Yes Functional screen assessment: : Basic needs can adequately be met by self Family / Caregiver's ability to cope with chronic illness: : a. Adequate (ability to meet patient's medical needs, ensures patient attends medical appts.) Physical Status: : Mobility impaired Equipment needed for post hospitalization: : None Is there a likelihood that the patient will require additional services to return to the preadmission environment? : Yes Living Arrangements: : Home Alone with Support Partial Dependence, assistance required for: : Ambulation / Mobility Patient with capacity for self-care or can be cared for in same environment as prior to hospitalization? : Yes Baseline cognitive status: : *Oriented to person, place, situation, time and present Physical environment modification needed / anticipated for discharge: : No Medication Management: : Patient states can read and understand medication labels Medication Management: : Patient states can afford medications Pharmacy name(s): : [facility] Does Patient have transportation to get home and to follow-up medical appointments when discharged from the hospital? : Yes Would patient like to participate in any Care Coordination programs (if applicable): : Not applicable Does the patient have electricity at home? : Yes Does the patient have running water in their house? : Yes Equipment in use: : Wheelchair Equipment in use: : Walker - Rollator Equipment in use: : Scooter Mental health screen: : No mental health history DCP Re-evaluation QUESTION: ANSWER Would patient like to participate in any Care Coordination programs (if applicable): : Not applicable PATIENT: ISABELA ADAMS ENCOUNTER: [id number] MEDICAL RECORD#: [id number] ADMISSION DATE: 07/11/2020 DISCHARGE DATE: ATTENDING MD: CHRIST PACHECO : AGE: 64 MARITAL STATUS: D DC PLAN ID: [id number] FACILITY: [facility] PRINTED ON: 07/11/20 16:40 CT All edits/amendments must be made on the electronic document DICTATION DATE: 07/11/20 1640 SPECIAL EVENTS DRIVER: VIKAS 07/11/20 1640 RPT#: [id number] DC DATE: STATUS: ADM IN [facility] [address] [place] [address] END OF REPORT
--- NOTE | 2020-07-11 18:23 | MORECARE ---
CASE MANAGEMENT DISCHARGE SUMMARY PATIENT: ISABELA ADAMS UNIT: [id number] ADM DATE: 07/11/20 AGE: 64 : 55 SEX: F ROOM/BED: D.1210 AUTHOR: PARKER,SUE PHYSICIAN: REFERRING PHYSICIAN: CHRIST BAPTISTE DO DATE OF SERVICE: 07/11/20 Case Management Discharge Planning Summary COMMENTS ENTERED DATE: 07/11/20 16:35 CT COMMENT TYPE: Discharge Planning REVIEWER: Aniket Resendiz [facility]. CM met with patient to complete DC plan and to evaluate needs. Patient lived alone with minimal family support. Her daughter has been identified as her person to notify, Federica Garcia, . Patient stated that her home is safe and has electricity and running water. Patient stated that the home has multiple steps to enter and she is unable to manage the steps without assistance. Patient stated that she has no problems paying for medications and she fills her medications at [facility]. Patient stated that her primary care physician is Dr. Tomas Scott. CM discussed availability of home health, rehab services, and medical equipment. Patient declined HHS, IPR, and DME. Patient stated that she would like to go to [facility] for rehabilitation. Spoke with Alejandra at [facility]. Alejandra stated that the patient's insurance would have to authorize and they will need both OT and PT notes. ANDRAE signed and placed on chart. Patient stated that she has a rollator, Wheelchair, and scooter. Patient voiced no other needs at this time and is satisfied with DC plan. H&P, Facesheet, and Post Op notes faxed to [phone]. DC IMM delivered, explained, signed by the patient, and placed in chart. Signed form also left with the patient. CM will continue to follow and will assist as needed with dc plans/needs. DCP REVIEW SUMMARY ANTICIPATED D/C DATE: EXPECTED LOS : CASE STATUS: DCP Initiated INITIAL REVIEW: 07/11/2020 INITIAL REVIEWER: Aniket Resendiz FINAL DISCHARGE DISPOSITION: : FINAL REVIEWER: FINAL REVIEW DATE: DCP Focus Questions & Answers DCP Evaluation QUESTION: ANSWER Patient and/or caregiver agree upon recommended discharge plan? : Yes Family / Caregiver's ability to cope with chronic illness: : a. Adequate (ability to meet patient's medical needs, ensures patient attends medical appts.) Patient's current cognitive status: : *Oriented to person, place, situation, time and present Patient's ability to cope with chronic illness : d. No chronic illness Patient gives permission to discuss discharge plans with: (name, relationship and number) : daughterFederica, Does the patient have the ability to pay for or attain post discharge needs / services? : Yes Functional screen assessment: : Basic needs can adequately be met by self Family / Caregiver's ability to cope with chronic illness: : a. Adequate (ability to meet patient's medical needs, ensures patient attends medical appts.) Physical Status: : Mobility impaired Equipment needed for post hospitalization: : None Is there a likelihood that the patient will require additional services to return to the preadmission environment? : Yes Living Arrangements: : Home Alone with Support Partial Dependence, assistance required for: : Ambulation / Mobility Patient with capacity for self-care or can be cared for in same environment as prior to hospitalization? : Yes Baseline cognitive status: : *Oriented to person, place, situation, time and present Physical environment modification needed / anticipated for discharge: : No Medication Management: : Patient states can read and understand medication labels Medication Management: : Patient states can afford medications Pharmacy name(s): : [facility] Does Patient have transportation to get home and to follow-up medical appointments when discharged from the hospital? : Yes Would patient like to participate in any Care Coordination programs (if applicable): : Not applicable Does the patient have electricity at home? : Yes Does the patient have running water in their house? : Yes Equipment in use: : Wheelchair Equipment in use: : Walker - Rollator Equipment in use: : Scooter Mental health screen: : No mental health history DCP Re-evaluation QUESTION: ANSWER Would patient like to participate in any Care Coordination programs (if applicable): : Not applicable PATIENT: ISABELA ADAMS ENCOUNTER: [id number] MEDICAL RECORD#: [id number] ADMISSION DATE: 07/11/2020 DISCHARGE DATE: ATTENDING MD: CHRIST PACHECO : AGE: 64 MARITAL STATUS: D DC PLAN ID: [id number] FACILITY: [facility] PRINTED ON: 07/11/20 18:23 CT All edits/amendments must be made on the electronic document DICTATION DATE: 07/11/201822 TELEPHONE LINEWORKER: VIKAS 07/11/201822 RPT#: [id number] DC DATE: STATUS: ADM IN [facility] [address] [place] [address] END OF REPORT
--- NOTE | 2020-07-11 20:00 | NUR ---
ALERT RESTING IN BED, RIGHT ANKLE IN CAST ELEVATED ON PILLOWS, DENIES NEEDS AT THIS TIME, SEE SHIFT ASSESSMENT, CALL LIGHT IN REACH
[2020-07-12] VITALS (7 sets, daily range): BP systolic 99–133; BP diastolic 40–80
--- NOTE | 2020-07-12 06:49 | OP ---
PATIENT NAME: ISABELA ADAMS MEDICAL RECORD: [id number] :55 LOCATION:D.M3 D.1210 ADMISSION DATE:07/11/20 SURGEON: BONG BAPTISTE DO DATE OF OPERATION: 07/11/2020 PROCEDURE PERFORMED: Right ankle open reduction internal fixation. PREOPERATIVE DIAGNOSIS: Right ankle fracture. POSTOPERATIVE DIAGNOSIS: Right ankle fracture. INDICATIONS: Ms. Adams is a 64-year-old female who broke her right ankle about 3 weeks ago due to her severe neuropathy. She had been walking on it and started to note she had pain. X-rays were taken at her primary care's office and seen to have a distal fibula fracture just above the ankle joint, Silva Bridgette. She was seen in my office and appeared to have some medial clear space widening. I told her we need to probably fix that. My nurse practitioner would do the medial clear space widening and the high fibula fracture. She was okay with that. She is aware of the risks of this including infection, bleeding, malunion, nonunion, continued pain, need for further surgery, damage to nerves or vessels in the area, blood clots and even and she signed the consent. SURGEON: Bong Baptiste DO DESCRIPTION OF PROCEDURE: The patient received block by anesthesia in the preoperative area and taken to the operative suite, laid in supine position, given 2 grams of Ancef preoperatively, sedated and LMA was placed. The right lower extremity was then prepped and draped in sterile fashion. A timeout was performed, everyone was in agreement with the correct site, side, patient, and procedure. I then exsanguinated the right lower extremity with an Esmarch, tourniquet was inflated to 250 mmHg, was up for approximately 20 minutes. I then made an incision over the lateral ankle. Made careful dissection down to the fibula. The fracture was reduced, I then then put the plate on and pinned it in place with adequate position on the AP. I then locked it distally and then put shaft screws in and then 2 locking screws in proximally and then put a ZipTight across the ankle joint to protect that medial clear space and syndesmosis and the fact that she is diabetic, neuropathic to get better fixation as well. I then let the tourniquet down. Any bleeding was coagulated with a pickup and a Bovie. We then irrigated and Pito Diaz, certified parking assistant, closed the skin with 2-0 Vicryl in inverted interrupted fashion, put the ZipLine on the skin. She was then dressed with Adaptic, 4 x 4s, ABD on the heel and over the incision and cast padding and then a 4 x 30 splint secured with an Zana wrap. She was awakened and taken to recovery in stable condition. BLOOD LOSS: Minimal. COMPLICATIONS: None. TRANSINT:[id number] Voice Confirmation ID: [id number] DOCUMENT ID: [id number] OPERATIVE REPORT [id number] ISABELA ADAMS,BONG Nix DO at 0649 CC: [id number] DICTATION DATE: 07/11/20 1115 BRIDGE CONSTRUCTION INSPECTOR: 07/11/20 2017 ADM IN [facility] [address] [place] [address]
[2020-07-12 07:28] LABS: BASOPHILS 0.2 % (0-2); EOSINOPHILS 1.3 % (0-7); HEMATOCRIT 38.8 % (36.0-48.0); HEMOGLOBIN 11.9 g/dL (12-16); IMMATURE GRANULOCYTES 0.3 % (0-5); LYMPHOCYTE ABS# 2.17 10x3/uL (1.18-3.74); LYMPHOCYTES 15.6 % (15-50); MCH 27.6 pg (26.0-34.0); MCHC 30.7 g/dL (31.0-37.0); MEAN PLATELET VOLUME 13.3 fL (7.4-10.4); MONOCYTES 9.7 % (2-11); NEUTROPHILS 72.9 % (40-80); PLATELET COUNT 283 10x3/uL (130-400); RBC 4.31 10x6/uL (4.00-5.40); RDW 15.8 % (11.5-14.5); WBC 13.9 10x3/uL (4.8-10.8)
--- NOTE | 2020-07-12 07:45 | NUR ---
PT RESTING QUIETLY IN BED. RESP EVEN AND UNLABORED. O2 @ 2L NC IN PLACE. PT REPORTS PAIN AT THIS TIME 07/31. EDUCATED REGARDING NEXT DOSE OF PAIN MEDICATION. PT VOICES UNDERSTANDING. IV TO RIGHT HAND WITH 1/2 NS @ 50ML/HR INFUSING VIA PUMP. SITE WITHOUT REDNESS OR EDEMA. DRESSING TO RIGHT LOWER EXTREMITY C/D/I. EXTREMITY WARM TO TOUCH. DENIES FURTHER NEEDS AT THIS TIME. CL WITHIN REACH. ENCOURAGED TO CALL WITH NEEDS. CONTINUE POC
[2020-07-12 08:02] LABS: ALBUMIN 2.9 g/dL (3.4-5.0); ANION GAP 11.2 mmol/L (8-16); BILIRUBIN - TOTAL 0.36 mg/dL (0.2-1.3); CALCIUM 8.5 mg/dL (8.5-10.1); CREATININE - SERUM 1.3 mg/dL (0.6-1.3); MAGNESIUM - SERUM 2.3 mg/dL (1.8-2.4); PROTEIN - SERUM 6.6 g/dL (6.4-8.2)
[2020-07-12 08:06] LABS: POTASSIUM - SERUM 4.2 mmol/L (3.5-5.1)
[2020-07-13 04:00] VITALS: BP 114/51
[2020-07-13 05:13] LABS: BASOPHILS 0.3 % (0-2); EOSINOPHILS 1.9 % (0-7); HEMATOCRIT 35.3 % (36.0-48.0); HEMOGLOBIN 11.1 g/dL (12-16); IMMATURE GRANULOCYTES 0.3 % (0-5); LYMPHOCYTE ABS# 2.51 10x3/uL (1.18-3.74); LYMPHOCYTES 20.9 % (15-50); MCH 28.2 pg (26.0-34.0); MCHC 31.4 g/dL (31.0-37.0); MCV 89.8 fL (80.0-100.0); MEAN PLATELET VOLUME 12.5 fL (7.4-10.4); NEUTROPHIL ABS# 7.99 10x3/uL (1.56-6.13); NEUTROPHILS 66.6 % (40-80); PLATELET COUNT 253 10x3/uL (130-400); RBC 3.93 10x6/uL (4.00-5.40); RDW 15.5 % (11.5-14.5)
[2020-07-13 05:23] LABS: ALBUMIN 2.7 g/dL (3.4-5.0); ANION GAP 8.9 mmol/L (8-16); BILIRUBIN - TOTAL 0.33 mg/dL (0.2-1.3); CALCIUM 8.3 mg/dL (8.5-10.1); CARBON DIOXIDE 31.9 mmol/L (21.0-32.0); CREATININE - SERUM 1.5 mg/dL (0.6-1.3); MAGNESIUM - SERUM 2.2 mg/dL (1.8-2.4); POTASSIUM - SERUM 3.8 mmol/L (3.5-5.1); PROTEIN - SERUM 6.8 g/dL (6.4-8.2)
--- NOTE | 2020-07-13 05:32 | NUR ---
CONTINUES TO C/O LEFT HIP PAIN, REFUSED PAIN MEDICATION WHEN OFFERED
--- NOTE | 2020-07-13 07:55 | NUR ---
ASSISTED PT FROM BED TO BATHROOM AND BACK TO BED WITH WALKER, REMINDING PT OF NON WEIGHT BEARING STATUS. PT REPORTS "LITTLE" PAIN AT THIS TIME. IV TO RIGHT HAND WITH 1/2 NS @ 50ML/HR INFUSING VIA PUMP. SITE WITHOUT REDNESS OR EDEMA. DRESSING C/D/I TO RIGHT LOWER EXTREMITY. EXTREMITY WARM TO TOUCH. PT DENIES FURTHER NEEDS AT THIS TIME. CL WITHIN REACH. ENCOURAGED TO CALL WITH NEEDS. CONTINUE POC
[2020-07-13 08:19] VITALS: BP 133/60
--- NOTE | 2020-07-13 09:03 | MORECARE ---
CASE MANAGEMENT DISCHARGE SUMMARY PATIENT: ISABELA ADAMS UNIT: [id number] ADM DATE: 07/11/20 AGE: 64 : 55 SEX: F ROOM/BED: D.1210 AUTHOR: PARKER,DOC PHYSICIAN: REFERRING PHYSICIAN: CHRIST BAPTISTE DO DATE OF SERVICE: 07/13/20 Case Management Discharge Planning Summary COMMENTS ENTERED DATE: 07/13/20 8:59 CT COMMENT TYPE: Discharge Planning REVIEWER: Ritu Asher THERAPY NOTES AND MAR FAXED TO [facility]. WAITING CALL BACK ON ACCEPTANCE. CM TO FOLLOW AND ASSIST NEEDED. ENTERED DATE: 07/11/20 16:35 CT COMMENT TYPE: Discharge Planning REVIEWER: Aniket Resendiz [facility]. CM met with patient to complete DC plan and to evaluate needs. Patient lived alone with minimal family support. Her daughter has been identified as her person to notify, Federica Garcia, . Patient stated that her home is safe and has electricity and running water. Patient stated that the home has multiple steps to enter and she is unable to manage the steps without assistance. Patient stated that she has no problems paying for medications and she fills her medications at [facility] on [facility]. Patient stated that her primary care physician is Dr. Tomas Scott. CM discussed availability of home health, rehab services, and medical equipment. Patient declined HHS, IPR, and DME. Patient stated that she would like to go to [facility] for rehabilitation. Spoke with Alejandra at [facility]. Alejandra stated that the patient's insurance would have to authorize and they will need both OT and PT notes. ANDRAE signed and placed on chart. Patient stated that she has a rollator, Wheelchair, and scooter. Patient voiced no other needs at this time and is satisfied with DC plan. H&P, Facesheet, and Post Op notes faxed to [phone]. DC IMM delivered, explained, signed by the patient, and placed in chart. Signed form also left with the patient. CM will continue to follow and will assist as needed with dc plans/needs. DCP REVIEW SUMMARY ANTICIPATED D/C DATE: EXPECTED LOS : CASE STATUS: DCP Initiated INITIAL REVIEW: 07/11/2020 INITIAL REVIEWER: Aniket Resendiz FINAL DISCHARGE DISPOSITION: : FINAL REVIEWER: FINAL REVIEW DATE: DCP Focus Questions & Answers DCP Evaluation QUESTION: ANSWER Patient and/or caregiver agree upon recommended discharge plan? : Yes Family / Caregiver's ability to cope with chronic illness: : a. Adequate (ability to meet patient's medical needs, ensures patient attends medical appts.) Patient's current cognitive status: : *Oriented to person, place, situation, time and present Patient's ability to cope with chronic illness : d. No chronic illness Patient gives permission to discuss discharge plans with: (name, relationship and number) : daughterFederica, Does the patient have the ability to pay for or attain post discharge needs / services? : Yes Functional screen assessment: : Basic needs can adequately be met by self Family / Caregiver's ability to cope with chronic illness: : a. Adequate (ability to meet patient's medical needs, ensures patient attends medical appts.) Physical Status: : Mobility impaired Equipment needed for post hospitalization: : None Is there a likelihood that the patient will require additional services to return to the preadmission environment? : Yes Living Arrangements: : Home Alone with Support Partial Dependence, assistance required for: : Ambulation / Mobility Patient with capacity for self-care or can be cared for in same environment as prior to hospitalization? : Yes Baseline cognitive status: : *Oriented to person, place, situation, time and present Physical environment modification needed / anticipated for discharge: : No Medication Management: : Patient states can read and understand medication labels Medication Management: : Patient states can afford medications Pharmacy name(s): : [facility] Does Patient have transportation to get home and to follow-up medical appointments when discharged from the hospital? : Yes Would patient like to participate in any Care Coordination programs (if applicable): : Not applicable Does the patient have electricity at home? : Yes Does the patient have running water in their house? : Yes Equipment in use: : Wheelchair Equipment in use: : Walker - Rollator Equipment in use: : Scooter Mental health screen: : No mental health history DCP Re-evaluation QUESTION: ANSWER Would patient like to participate in any Care Coordination programs (if applicable): : Not applicable PROVIDER NETWORKING REVIEW DATE: 07/13/2020 SERVICE TYPE: [facility] Facility REVIEWER: Ritu Asher PATIENT: ISABELA ADAMS ENCOUNTER: [id number] MEDICAL RECORD#: [id number] ADMISSION DATE: 07/11/2020 DISCHARGE DATE: ATTENDING MD: CHRIST PACHECO : AGE: 64 MARITAL STATUS: D DC PLAN ID: [id number] FACILITY: [facility] PRINTED ON: 07/13/20 9:03 CT All edits/amendments must be made on the electronic document DICTATION DATE: 07/13/20902 PRINCIPAL SOFTWARE ARCHITECT: DM 07/13/20902 RPT#: [id number] DC DATE: STATUS: ADM IN [facility] [address] [place] [address] END OF REPORT
[2020-07-13 11:41] VITALS: BP 91/64
[2020-07-13 15:59] VITALS: BP 97/66
--- NOTE | 2020-07-13 16:47 | NUR ---
OT NOTE:PT COMPLETED ADL MOB WITH SBA USING RW AND MAINTAINED PRECAUTIONS. PT COMPLETED TOILETING WITH SBA. PT COMPLETED GARMENT MANAGEMENT WITH SBA. PT COMPLETED TOILET HYGIENE WITH SBA. PT COMPLETED HAND HYGIENE WITH SETUP. [phone] LISANDRO BHANDARI COTA
[2020-07-13 20:00] VITALS: BP 114/48
[2020-07-14 04:00] VITALS: BP 123/51
[2020-07-14] MEDS ORDERED: VISTARIL50 MG PO (06:31)
[2020-07-14] MEDS ORDERED: ELIQUIS2.5 MG PO (06:31)
[2020-07-14] MEDS ORDERED: HYDROCODON-ACE1 EAC7 PO (06:32)
[2020-07-14 07:52] LABS: BASOPHILS 0.4 % (0-2); EOSINOPHILS 2.1 % (0-7); HEMATOCRIT 34.6 % (36.0-48.0); HEMOGLOBIN 10.8 g/dL (12-16); IMMATURE GRANULOCYTES 0.2 % (0-5); LYMPHOCYTE ABS# 2.37 10x3/uL (1.18-3.74); LYMPHOCYTES 21.2 % (15-50); MCH 27.6 pg (26.0-34.0); MCHC 31.2 g/dL (31.0-37.0); MCV 88.5 fL (80.0-100.0); MEAN PLATELET VOLUME 12.4 fL (7.4-10.4); MONOCYTES 8.8 % (2-11); NEUTROPHIL ABS# 7.55 10x3/uL (1.56-6.13); NEUTROPHILS 67.3 % (40-80); PLATELET COUNT 251 10x3/uL (130-400); RBC 3.91 10x6/uL (4.00-5.40); RDW 15.4 % (11.5-14.5); WBC 11.2 10x3/uL (4.8-10.8)
[2020-07-14 08:07] LABS: ALBUMIN 2.6 g/dL (3.4-5.0); ANION GAP 9.7 mmol/L (8-16); BILIRUBIN - TOTAL 0.29 mg/dL (0.2-1.3); CALCIUM 8.9 mg/dL (8.5-10.1); CARBON DIOXIDE 29.1 mmol/L (21.0-32.0); MAGNESIUM - SERUM 2.5 mg/dL (1.8-2.4); POTASSIUM - SERUM 3.8 mmol/L (3.5-5.1); PROTEIN - SERUM 6.9 g/dL (6.4-8.2)
--- NOTE | 2020-07-14 08:13 | NUR ---
PT ASSISTED WITH BREAKFAST SET UP. CL IN REACH. STATES PAIN IS FINE RIGHT NOW. STATES THAT SHE DID NOT FALL SHE JUST "STEPPED WRONG, EVEN THOUGH I HAD BEEN FALLING PREVIOUSLY." NO FURTHER NEEDS AT THIS TIME. WCTM
[2020-07-14 08:14] VITALS: BP 115/67
--- NOTE | 2020-07-14 09:22 | MORECARE ---
CASE MANAGEMENT DISCHARGE SUMMARY PATIENT: ISABELA ADAMS UNIT: [id number] ADM DATE: 07/11/20 AGE: 64 : 55 SEX: F ROOM/BED: D.1210 AUTHOR: PARKER,DOC PHYSICIAN: REFERRING PHYSICIAN: CHRIST BAPTISTE DO DATE OF SERVICE: 07/14/20 Case Management Discharge Planning Summary COMMENTS ENTERED DATE: 07/13/20 8:59 CT COMMENT TYPE: Discharge Planning REVIEWER: Ritu Asher THERAPY NOTES AND MAR FAXED TO [facility]. WAITING CALL BACK ON ACCEPTANCE. CM TO FOLLOW AND ASSIST NEEDED. ENTERED DATE: 07/11/20 16:35 CT COMMENT TYPE: Discharge Planning REVIEWER: Aniket Resendiz [facility]. CM met with patient to complete DC plan and to evaluate needs. Patient lived alone with minimal family support. Her daughter has been identified as her person to notify, Federica Garcia, . Patient stated that her home is safe and has electricity and running water. Patient stated that the home has multiple steps to enter and she is unable to manage the steps without assistance. Patient stated that she has no problems paying for medications and she fills her medications at [facility] on [address]. Patient stated that her primary care physician is Dr. Tomas Scott. CM discussed availability of home health, rehab services, and medical equipment. Patient declined HHS, IPR, and DME. Patient stated that she would like to go to [facility] for rehabilitation. Spoke with Alejandra at [facility]. Alejandra stated that the patient's insurance would have to authorize and they will need both OT and PT notes. ANDRAE signed and placed on chart. Patient stated that she has a rollator, Wheelchair, and scooter. Patient voiced no other needs at this time and is satisfied with DC plan. H&P, Facesheet, and Post Op notes faxed to [phone]. DC IMM delivered, explained, signed by the patient, and placed in chart. Signed form also left with the patient. CM will continue to follow and will assist as needed with dc plans/needs. DCP REVIEW SUMMARY ANTICIPATED D/C DATE: EXPECTED LOS : CASE STATUS: DCP Initiated INITIAL REVIEW: 07/11/2020 INITIAL REVIEWER: Aniket Resendiz FINAL DISCHARGE DISPOSITION: : FINAL REVIEWER: FINAL REVIEW DATE: DCP Focus Questions & Answers DCP Evaluation QUESTION: ANSWER Family / Caregiver's ability to cope with chronic illness: : a. Adequate (ability to meet patient's medical needs, ensures patient attends medical appts.) Patient gives permission to discuss discharge plans with: (name, relationship and number) : daughterFederica, Patient's ability to cope with chronic illness : d. No chronic illness Patient's current cognitive status: : *Oriented to person, place, situation, time and present Patient and/or caregiver agree upon recommended discharge plan? : Yes Physical Status: : Mobility impaired Family / Caregiver's ability to cope with chronic illness: : a. Adequate (ability to meet patient's medical needs, ensures patient attends medical appts.) Functional screen assessment: : Basic needs can adequately be met by self Does the patient have the ability to pay for or attain post discharge needs / services? : Yes Partial Dependence, assistance required for: : Ambulation / Mobility Living Arrangements: : Home Alone with Support Is there a likelihood that the patient will require additional services to return to the preadmission environment? : Yes Equipment needed for post hospitalization: : None Baseline cognitive status: : *Oriented to person, place, situation, time and present Patient with capacity for self-care or can be cared for in same environment as prior to hospitalization? : Yes Physical environment modification needed / anticipated for discharge: : No Medication Management: : Patient states can afford medications Medication Management: : Patient states can read and understand medication labels Pharmacy name(s): : [facility] Does Patient have transportation to get home and to follow-up medical appointments when discharged from the hospital? : Yes Would patient like to participate in any Care Coordination programs (if applicable): : Not applicable Does the patient have electricity at home? : Yes Does the patient have running water in their house? : Yes Equipment in use: : Scooter Equipment in use: : Walker - Rollator Equipment in use: : Wheelchair Mental health screen: : No mental health history DCP Re-evaluation QUESTION: ANSWER Would patient like to participate in any Care Coordination programs (if applicable): : Not applicable PROVIDER NETWORKING REVIEW DATE: 07/13/2020 SERVICE TYPE: [facility] REVIEWER: Ritu Asher PATIENT: ISABELA ADAMS ENCOUNTER: [id number] MEDICAL RECORD#: [id number] ADMISSION DATE: 07/11/2020 DISCHARGE DATE: ATTENDING MD: CHRIST PACHECO : AGE: 64 MARITAL STATUS: D DC PLAN ID: [id number] FACILITY: [facility] PRINTED ON: 07/14/20 9:22 CT All edits/amendments must be made on the electronic document DICTATION DATE: 07/14/20921 ADVERTISING COLUMNIST: DM 07/14/20921 RPT#: [id number] DC DATE: STATUS: ADM IN [facility] [address] [place] [address] END OF REPORT
[2020-07-14] MEDS ORDERED: HYDROCODON-ACE1 EA10 PO (10:17)
--- NOTE | 2020-07-14 10:45 | NUR ---
PT CO OF 7 OUT OF 10 ON THE PAIN SCALE. GAVE VISTARIL, TORADOL, AND NORCO PER EMAR. CL IN REACH. ICE PACK REQUESTED AND RECIEVED. PT STATES SHE USED TO WORK OVER NIGHT SO HER INTERNAL CLOCK IS STILL BACKWARD. I TOLD HER IT DOES TAKE SOME TIME. CL IN REACH. CHAIR ALARM ON. WCTM
--- NOTE | 2020-07-14 11:46 | NUR ---
PT SITTING UP IN CHAIR. HELP GETTING TRAY ALIGNED PROPERLY. CO OF ANKLE PAIN. BLOOD GLUCOSE CHECKED AT 93. NO INSULIN NEEDED. ATTEMPTED TO CALL ETHAN AT [facility]. REACHED THE ANSWERING MACHINE. WAITING ON A CALL BACK. CL IN REACH. WCTM
--- NOTE | 2020-07-14 12:20 | NUR ---
REPORT CALLED TO PRADEEP AT [facility].
[2020-07-14 12:58] VITALS: BP 100/53
--- NOTE | 2020-07-14 13:21 | NUR ---
IV THERAPY REMOVED FROM RIGHT HAND WITH TIP INTACT. AMBULANCE ARRIVED TO [facility]. CALLED REPORT TO PRADEEP AT [facility].
--- NOTE | 2020-07-17 10:25 | MORECARE ---
CASE MANAGEMENT DISCHARGE SUMMARY PATIENT: ISABELA ADAMS UNIT: [id number] ADM DATE: 07/11/20 AGE: 64 : 55 SEX: F ROOM/BED: D.1210 AUTHOR: PARKER,DOC PHYSICIAN: REFERRING PHYSICIAN: CHRIST BAPTISTE DO DATE OF SERVICE: 07/17/20 Case Management Discharge Planning Summary COMMENTS ENTERED DATE: 07/13/20 8:59 CT COMMENT TYPE: Discharge Planning REVIEWER: Ritu Asher THERAPY NOTES AND MAR FAXED TO [facility]. WAITING CALL BACK ON ACCEPTANCE. CM TO FOLLOW AND ASSIST NEEDED. ENTERED DATE: 07/11/20 16:35 CT COMMENT TYPE: Discharge Planning REVIEWER: Aniket Resendiz [facility]. CM met with patient to complete DC plan and to evaluate needs. Patient lived alone with minimal family support. Her daughter has been identified as her person to notify, Federica Garcia, . Patient stated that her home is safe and has electricity and running water. Patient stated that the home has multiple steps to enter and she is unable to manage the steps without assistance. Patient stated that she has no problems paying for medications and she fills her medications at [facility] on [facility]. Patient stated that her primary care physician is Dr. Tomas Scott. CM discussed availability of home health, rehab services, and medical equipment. Patient declined HHS, IPR, and DME. Patient stated that she would like to go to [facility] for rehabilitation. Spoke with Alejandra at [facility]. Alejandra stated that the patient's insurance would have to authorize and they will need both OT and PT notes. ANDRAE signed and placed on chart. Patient stated that she has a rollator, Wheelchair, and scooter. Patient voiced no other needs at this time and is satisfied with DC plan. H&P, Facesheet, and Post Op notes faxed to [phone]. DC IMM delivered, explained, signed by the patient, and placed in chart. Signed form also left with the patient. CM will continue to follow and will assist as needed with dc plans/needs. DCP REVIEW SUMMARY ANTICIPATED D/C DATE: EXPECTED LOS : CASE STATUS: DCP Initiated INITIAL REVIEW: 07/11/2020 INITIAL REVIEWER: Aniket Resendiz FINAL DISCHARGE DISPOSITION: : FINAL REVIEWER: FINAL REVIEW DATE: DCP Focus Questions & Answers DCP Evaluation QUESTION: ANSWER Patient's current cognitive status: : *Oriented to person, place, situation, time and present Patient's ability to cope with chronic illness : d. No chronic illness Patient gives permission to discuss discharge plans with: (name, relationship and number) : daughterFederica, Patient and/or caregiver agree upon recommended discharge plan? : Yes Family / Caregiver's ability to cope with chronic illness: : a. Adequate (ability to meet patient's medical needs, ensures patient attends medical appts.) Functional screen assessment: : Basic needs can adequately be met by self Physical Status: : Mobility impaired Does the patient have the ability to pay for or attain post discharge needs / services? : Yes Family / Caregiver's ability to cope with chronic illness: : a. Adequate (ability to meet patient's medical needs, ensures patient attends medical appts.) Partial Dependence, assistance required for: : Ambulation / Mobility Equipment needed for post hospitalization: : None Is there a likelihood that the patient will require additional services to return to the preadmission environment? : Yes Living Arrangements: : Home Alone with Support Baseline cognitive status: : *Oriented to person, place, situation, time and present Patient with capacity for self-care or can be cared for in same environment as prior to hospitalization? : Yes Physical environment modification needed / anticipated for discharge: : No Medication Management: : Patient states can afford medications Medication Management: : Patient states can read and understand medication labels Pharmacy name(s): : [facility] Does Patient have transportation to get home and to follow-up medical appointments when discharged from the hospital? : Yes Would patient like to participate in any Care Coordination programs (if applicable): : Not applicable Does the patient have electricity at home? : Yes Does the patient have running water in their house? : Yes Equipment in use: : Scooter Equipment in use: : Walker - Rollator Equipment in use: : Wheelchair Mental health screen: : No mental health history DCP Re-evaluation QUESTION: ANSWER Would patient like to participate in any Care Coordination programs (if applicable): : Not applicable PROVIDER NETWORKING REVIEW DATE: 07/13/2020 SERVICE TYPE: [facility] Facility REVIEWER: Ritu Asher PATIENT: ISABELA ADAMS ENCOUNTER: [id number] MEDICAL RECORD#: [id number] ADMISSION DATE: 07/11/2020 DISCHARGE DATE: 07/14/2020 ATTENDING MD: CHRIST PACHECO : AGE: 64 MARITAL STATUS: D DC PLAN ID: [id number] FACILITY: [facility] PRINTED ON: 07/17/20 10:25 CT All edits/amendments must be made on the electronic document DICTATION DATE: 07/17/20 1025 ASSISTANT DESIGNER: VIKAS 07/17/20 1025 RPT#: [id number] DC DATE:07/14/20 STATUS: DIS IN [facility] [address] [place] [address] END OF REPORT
== END 2020-07-14 13:23 | DRG 493 ==
LOC: D.M3 06:26 → D.OPS 06:26 → D.M3 10:09 → D.OPS 11:45 → D.M3 16:07 → D.OPS 16:07 → D.M3 07-14 13:23
PROVIDERS: Anesthesiology; Family Medicine; ADMIT Orthopaedic Surgery; ATTEND Orthopaedic Surgery
PROC: 0QSJ04Z Reposition Right Fibula with Internal Fixation Device, Open Approach (ICD-10-PCS; principal; 2020-07-11 09:00)
DX: S82.841A Displaced bimalleolar fracture of right lower leg, initial encounter for closed fracture (principal); N17.9 Acute kidney failure, unspecified; X58.XXXA Exposure to other specified factors, initial encounter; E11.40 Type 2 diabetes mellitus with diabetic neuropathy, unspecified; I11.0 Hypertensive heart disease with heart failure; I50.9 Heart failure, unspecified; H40.9 Unspecified glaucoma; Z87.891 Personal history of nicotine dependence